=== PATIENT | male | born 1975 | race Two or more races ===

== ENCOUNTER 2016-12-18 10:14 | Emergency (ER) | payer MEDICARE, MEDICAID ==
[~2016-12-18] VITALS: Ht 188 cm; Wt 115.7 kg
[~2016-12-18 10:14] MED LIST: CYCL-343; FURO40TA5; GABA-534; HYDR-3658; INSU100I4; LEVEMIR; METF500T4
[2016-12-18 10:18] VITALS: BP 162/87
== END 2016-12-18 10:52 | disposition home or self-care (01) ==
LOC: ER 10:17
DX: K12.2 Cellulitis and abscess of mouth (principal); E11.9 Type 2 diabetes mellitus without complications; G89.29 Other chronic pain; I10 Essential (primary) hypertension; R13.10 Dysphagia, unspecified; F17.200 Nicotine dependence, unspecified, uncomplicated; M51.26 Other intervertebral disc displacement, lumbar region; M54.5 Low back pain
CPT/HCPCS: 99283; A4606; Z7610

== ENCOUNTER 2017-04-30 21:50 | Emergency (ER) | payer MEDICARE, MEDICAID ==
[~2017-04-30] VITALS: Ht 188 cm; Wt 111.6 kg
--- NOTE | 2017-04-30 22:13 | NUR ---
PT AMBULATORY TO ER BED 8 C/O RIGHT ANKLE PAIN X 1 WK, GRADUAL ONSET. PT AOX4 RR EVEN AND UNLABORED. NO SOB NOTED. NAD NOTED. NO NVD AT THIS TIME. PT NOT DIAPHORETIC. PT WAITING FOR MD NORRIS. CAP REFILL ON TELLY FEET WNL AND PEDIAL PULSE NOTED. PT STATES HAD RIGHT FOOT SX 2 YRS AGO.
[2017-04-30] MEDS ORDERED: IV NS 0.9% 1,000 ML BAG IV ONE ×2 (22:30→23:30)
--- NOTE | 2017-04-30 22:30 | NUR ---
BS 498. DR. OSIPNA MADE AWARE.
[2017-04-30] MEDS ORDERED: IV NS 0.9% 1,000 ML ONE ×2 (22:34→23:23)
[2017-04-30] MEDS ORDERED: IV SET PRIMARY 1 EA INFUS.SET MC ONE ×2 (22:34→23:23)
--- NOTE | 2017-04-30 22:39 | NUR ---
XRAY AT BEDSIDE
[2017-04-30 22:49] LABS: BASOPHILS % (AUTO) 0.4 % (0.0-2.0); EOSINOPHILS # (AUTO) 0.2 /CMM (0.0-0.7); EOSINOPHILS % (AUTO) 2.8 % (0.0-6.0); HEMATOCRIT 41 % (39-51); LYMPHOCYTES % (AUTO) 36.4 % (20.0-44.0); MEAN CORPUSCULAR HEMOGLOBIN 29 PG (26.0-33.0); MEAN CORPUSCULAR HGB CONC 34 g/dl (31.0-36.0); MEAN CORPUSCULAR VOLUME 86 fL (80-96); MONOCYTES # (AUTO) 0.5 /CMM (0.1-1.30); MONOCYTES % (AUTO) 6.7 % (2.0-12.0); NEUTROPHILS # (AUTO) 4.4 /CMM (1.8-8.9); NEUTROPHILS % (AUTO) 53.7 % (43.0-81.0); PLATELET COUNT (AUTO) 308 /CMM (150-450); RDW COEFFICIENT OF VARIATION 13.9 (11.5-15.0); RED BLOOD CELL COUNT(AUTO) 4.78 MIL/uL (4.5-6.0); WHITE BLOOD COUNT (AUTO) 8.1 K/uL (4.3-11.0)
[2017-04-30 23:09] LABS: CALCIUM, SERUM 8.3 mg/dL (8.5-10.1); CREATININE 0.9 mg/dL (0.6-1.3); POTASSIUM 3.6 mmol/L (3.5-5.1)
[2017-04-30] MEDS ORDERED: ACETAMINOPHEN ES 500 MG TABLET ONE (23:46)
--- NOTE | 2017-04-30 23:51 | NUR ---
RECEIVED TLYENOL 500MG X 2 TABS FROM MS FLOOR SIVANRohan.
--- NOTE | 2017-04-30 23:59 | NUR ---
IV removed. Catheter intact and site benign. Pressure and 4x4 applied to site. No bleeding noted. Patient discharged to home in stable condition. Written and verbal after care instructions given. Patient verbalizes understanding of instruction. ambulatory with a steady gait
[2017-05-01] MEDS ORDERED: ACETAMINOPHEN 325 MG TABLET PO ONE
[2017-05-01 00:01] VITALS: BP 162/97
== END 2017-05-01 00:02 | disposition home or self-care (01) ==
LOC: ER 21:50
DX: M79.671 Pain in right foot (principal); G89.18 Other acute postprocedural pain; E86.0 Dehydration; E11.65 Type 2 diabetes mellitus with hyperglycemia; F17.200 Nicotine dependence, unspecified, uncomplicated; I10 Essential (primary) hypertension; G89.29 Other chronic pain; Z91.19 Patient's noncompliance with other medical treatment and regimen; Z98.890 Other specified postprocedural states
CPT/HCPCS: 36415; 73630; 80048; 82962; 85025; 96360; 96361; 99285; A4606; J7030 ×2; Z7610

== ENCOUNTER 2019-03-12 19:11 | Emergency (ER) | payer MEDICARE, MEDICAID ==
[~2019-03-12] VITALS: Ht 188 cm; Wt 127.1 kg
[~2019-03-12 19:11] MED LIST changes: -CYCL-343; +CYCL10TA9; -HYDR-3658; +HYDR-3980; +METF-440; -METF500T4
[2019-03-12 19:19] VITALS: BP 181/98
--- NOTE | 2019-03-12 19:20 | NUR ---
PT BIBSELF COMPLAINING OF R HAND PAIN/RING FINGER PAIN AFTER "SCUFFLE ON ." PT AXO4. RESPIRATIONS EVEN AND UNLABORED. PT AMBULATORY WITH STEADY GAIT TO BED 9.
--- NOTE | 2019-03-12 20:24 | NUR ---
called PAOLA for report; [phone] - report iniated Note: The patient refused [employer] reporting per primary ED provider
--- NOTE | 2019-03-12 20:27 | NUR ---
PAOLA drawing press operator [phone] - report initiated
--- NOTE | 2019-03-12 20:27 | NUR ---
CALLED LEONILA SALDAÑA FOR HEELER TO REQUEST PANEL CALL
--- NOTE | 2019-03-12 20:35 | NUR ---
CALLED DR ALCALA'S OFFICE AT [phone] CLIFFORD. LEFT A MESSAGE
--- NOTE | 2019-03-12 21:48 | NUR ---
Patient discharged to home in stable condition. Written and verbal after care instructions given. Patient verbalizes understanding of instruction.
== END 2019-03-12 21:52 | disposition home or self-care (01) ==
LOC: ER 19:13
DX: S62.324A Displaced fracture of shaft of fourth metacarpal bone, right hand, initial encounter for closed fracture (principal); E11.9 Type 2 diabetes mellitus without complications; I10 Essential (primary) hypertension; G89.29 Other chronic pain; M54.9 Dorsalgia, unspecified; F10.10 Alcohol abuse, uncomplicated; F17.200 Nicotine dependence, unspecified, uncomplicated; Y90.9 Presence of alcohol in blood, level not specified; Z98.890 Other specified postprocedural states; Y08.89XA Assault by other specified means, initial encounter; Y93.89 Activity, other specified; Y92.89 Other specified places as the place of occurrence of the external cause; Y99.8 Other external cause status
CPT/HCPCS: 73130-TC

== ENCOUNTER 2019-03-15 13:20 | Outpatient (CLI) | payer MEDICARE, MEDICAID | END 2019-03-15 23:59 | disposition home or self-care (01) | LOC: WOU 13:20 | PROVIDERS: ATTEND Surgery | PROC: 2W3CX1Z Immobilization of Right Lower Arm using Splint (ICD-10-PCS; principal; 2019-03-15) | DX: S62.304A Unspecified fracture of fourth metacarpal bone, right hand, initial encounter for closed fracture (principal); Y04.2XXA Assault by strike against or bumped into by another person, initial encounter; Y92.89 Other specified places as the place of occurrence of the external cause; E10.65 Type 1 diabetes mellitus with hyperglycemia; E10.610 Type 1 diabetes mellitus with diabetic neuropathic arthropathy; F17.210 Nicotine dependence, cigarettes, uncomplicated; I10 Essential (primary) hypertension; E66.9 Obesity, unspecified; Z68.33 Body mass index [BMI] 33.0-33.9, adult | CPT/HCPCS: 29125; A6402 ==

== ENCOUNTER 2019-07-11 05:05 | Emergency (ER) | payer MEDICARE, MEDICAID ==
[~2019-07-11] VITALS: Ht 188 cm; Wt 129.3 kg
[2019-07-11 05:09] VITALS: BP 162/94
[2019-07-11] MEDS ORDERED: MORPHINE SULFATE IR 15 MG TABLET ONE (05:23)
[2019-07-11] MEDS ORDERED: MORPHINE SULFATE IR 15 MG TABLET PO ONE (05:30)
--- NOTE | 2019-07-11 05:45 | NUR ---
Patient discharged to home in stable condition. Written and verbal after care instructions given. Patient verbalizes understanding of instruction.
== END 2019-07-11 05:46 | disposition home or self-care (01) ==
LOC: ER 05:06
DX: M54.16 Radiculopathy, lumbar region (principal); G89.29 Other chronic pain; I10 Essential (primary) hypertension; E11.9 Type 2 diabetes mellitus without complications; F10.10 Alcohol abuse, uncomplicated; F17.200 Nicotine dependence, unspecified, uncomplicated; Y90.9 Presence of alcohol in blood, level not specified; Z98.890 Other specified postprocedural states

== ENCOUNTER 2020-03-21 18:38 | Inpatient (IN) | payer MEDICARE, OTHER ==
[~2020-03-21] VITALS: Ht 185.4 cm; Wt 130.2 kg
[2020-03-21] MEDS ORDERED: PIPERACILLIN /TAZOBACTAM 3.375 G in IV D5W 50 ML IV ONE (19:00)
[2020-03-21] MEDS ORDERED: IV NS 0.9% 1,000 ML BAG IV ONE (19:00)
[2020-03-21] MEDS ORDERED: VANCOMYCIN 1 GM in IV D5W 250 ML IV ONE ×2 (19:00→22:04)
[2020-03-21 19:08] LABS: BASOPHILS # (AUTO) 0.1 /CMM (0.0-0.2); BASOPHILS % (AUTO) 0.4 % (0.0-2.0); EOSINOPHILS % (AUTO) 2.1 % (0.0-6.0); HEMATOCRIT 42 % (39-51); HEMOGLOBIN 13.8 g/dL (13.5-17.5); LYMPHOCYTES # (AUTO) 1.6 /CMM (0.8-4.8); LYMPHOCYTES % (AUTO) 11.4 % (20.0-44.0); MEAN CORPUSCULAR HGB CONC 33 g/dl (31.0-36.0); MEAN CORPUSCULAR VOLUME 87 fL (80-96); MONOCYTES # (AUTO) 0.8 /CMM (0.1-1.30); MONOCYTES % (AUTO) 5.8 % (2.0-12.0); NEUTROPHILS # (AUTO) 11.6 /CMM (1.8-8.9); NEUTROPHILS % (AUTO) 80.3 % (43.0-81.0); PLATELET COUNT (AUTO) 326 /CMM (150-450); RED BLOOD CELL COUNT(AUTO) 4.77 MIL/uL (4.5-6.0); WHITE BLOOD COUNT (AUTO) 14.4 K/uL (4.3-11.0)
--- NOTE | 2020-03-21 19:10 | NUR ---
Report given to DENISSE Jeffries
--- NOTE | 2020-03-21 19:15 | NUR ---
ASSUMED CARE OF PT; wound to pad of r foot x 3 days s/p walking with rock in sandal, PT AAOX4, -SOB, NAD NOTED, PENDING MD NORRIS
[2020-03-21 19:17] LABS: CALCIUM, SERUM 8.6 mg/dL (8.5-10.1); CARBON DIOXIDE 29 mmol/L (21-32); CHLORIDE 102 mmol/L (98-107); CREATININE 1.5 mg/dL (0.6-1.3); GLUCOSE 293 mg/dL (74-106); POTASSIUM 4.3 mmol/L (3.5-5.1); SODIUM SERUM 137 mmol/L (136-145); UREA NITROGEN, BLOOD 25 mg/dL (7-18)
[2020-03-21 19:32] LABS: ALANINE AMINOTRANSFERASE 43 U/L (12-78); ALBUMIN 2.6 g/dL (3.4-5.0); ALKALINE PHOSPHATASE 147 U/L (46-116); ASPARTATE AMINOTRANSFERASE 27 U/L (15-37); BILIRUBIN,DIRECT 0.1 mg/dL (0.0-0.2); BILIRUBIN,TOTAL 0.3 mg/dL (0.2-1.0); TOTAL PROTEIN, SERUM 6.3 g/dL (6.4-8.2)
[2020-03-21] MEDS ORDERED: ONDANSETRON HCL/PF 4 MG/2 ML VIAL ONE (19:52)
[2020-03-21] MEDS ORDERED: MORPHINE SULFATE INJ 4 MG/ML DISP.SYRIN ONE (19:52)
--- NOTE | 2020-03-21 19:57 | NUR ---
TOYA SMITH ON THE PHONE WITH DR. WOOD
[2020-03-21] MEDS ORDERED: MORPHINE SULFATE INJ 2 MG/ML DISP.SYRIN IV ONE (20:00)
[2020-03-21] MEDS ORDERED: ONDANSETRON HCL/PF 4 MG/2 ML VIAL IV ONE (20:00)
--- NOTE | 2020-03-21 20:28 | NUR ---
SARAH HOPPER NP ON THE PHONE WITH MEREDITH BEATTY NP
[2020-03-21] MEDS ORDERED: IV NS 0.9% 1,000 ML IV PRN (20:30)
--- NOTE | 2020-03-21 20:30 | NUR ---
CALLED NURSING SUP FOR BED
[2020-03-21] MEDS ORDERED: DEXTROSE 50%-WATER 50 ML DISP.SYRIN IV PRN (21:30)
[2020-03-21] MEDS: BLOOD SUGAR DIAGNOSTIC 1 EACH STRIP VI SCH (22:00)
[2020-03-21] MEDS ORDERED: LISI10TA5 PO (22:15)
[2020-03-21] MEDS ORDERED: DULA1.5P SQ (22:15)
[2020-03-21] MEDS ORDERED: PREG100C PO (22:15)
[2020-03-21] MEDS ORDERED: ATOR80TA PO (22:15)
[2020-03-21] MEDS ORDERED: GLIP1TAB6 PO (22:15)
[2020-03-21] MEDS ORDERED: METO25TA4 PO (22:15)
[2020-03-21] MEDS ORDERED: OXYC-133 PO (22:15)
[2020-03-21] MEDS ORDERED: ASPI-1169 PO (22:15)
--- NOTE | 2020-03-21 22:17 | NUR ---
REPORT GIVEN TO RUDDY GOMEZ FOR CITLALI PT TRANSPORTED TO 3RD FLOOR
[2020-03-21 22:30] VITALS: BP 154/81
--- NOTE | 2020-03-21 22:30 | NUR ---
MS INSET CUTTER NOTE RECEIVED PATIENT VIA WHEEL CHAIR. PATIENT AMBULATED TO BED WITH STEADY GAIT. TOLERATING ROOM AIR. RESPIRATIONS ARE EVEN AND UNLABORED. NO S/S SOB NOTED. STATES PAIN IS 9/10 AT THIS TIME, INFORMED I WILL SEE WHAT DOCTOR ORDERED FOR PAIN. IN NO APPARENT DISTRESS. IV ACCESS IN LAC#20 PATENT AND SALINE LOCKED. INATAL AND PHYSICAL ASSESSMENT COMPLETED, SKIN ASSESSMENT COMPLETED AND PICTURES TAKEN AND PLACED IN CHART. HOME MEDICATIONS TAKEN AND SIGNED OVER. VITAL SIGNS OBTAINED BY [facility] NURSE WELL BELONGINGS LIST COMPLETED. BED IS LOW AND LOCKED, HOB ELEVATED IN SEMI FOWLERS, SIDE RIALS UP X2, CALL LIGHT WITHIN REACH. WILL CONTINUE TO MONITOR.
[2020-03-21] MEDS ORDERED: IBUP-1957 PO (23:14)
[2020-03-21] MEDS ORDERED: NALO4SPR NS (23:14)
[2020-03-21] MEDS ORDERED: NITR0.4T48 SL (23:14)
[2020-03-21] MEDS ORDERED: CYCL5TAB PO ×2 (23:14)
[2020-03-21] MEDS: IV NS 0.9% 1,000 ML IV PRN (23:25)
[2020-03-21] MEDS: HEPARIN SODIUM, PORCINE 5000 UNITS/1 ML VIAL SQ SCH (23:28)
[2020-03-21] MEDS: *INSULIN REGULAR(HUMULIN R)HUM 100 UNIT/ML VIAL SQ PRN (23:49)
[2020-03-22] MEDS ORDERED: ZOSYN IVPB 3.375 G in IV D5W 50ml IV SCH ×2
[2020-03-22] MEDS ORDERED: PIPERACILLIN /TAZOBACTAM 3.375 G VIAL IV ONE ×2 (00:13→05:50)
[2020-03-22] MEDS: PIPERACILLIN /TAZOBACTAM 3.375 G in IV D5W 50 ML IV SCH ×4 (00:21→18:20)
[2020-03-22] MEDS ORDERED: MAGNESIUM HYDROXIDE 30 ML UDC PO PRN (00:30)
[2020-03-22] MEDS ORDERED: CYCLOBENZAPRINE 10 MG TABLET PO PRN (00:30)
[2020-03-22] MEDS ORDERED: ONDANSETRON HCL/PF 4 MG/2 ML VIAL IVP PRN (00:30)
[2020-03-22] MEDS ORDERED: ACETAMINOPHEN 325 MG TABLET PO PRN (00:30)
[2020-03-22] MEDS ORDERED: IBUPROFEN 800 MG TABLET PO PRN (00:30)
[2020-03-22] MEDS ORDERED: ZOLPIDEM TARTRATE 5 MG TABLET PO PRN (00:30)
[2020-03-22] MEDS: PREGABALIN 100 MG CAPSULE PO SCH ×4 (00:46→18:13)
[2020-03-22] MEDS: ATORVASTATIN 40 MG TABLET PO SCH ×2 (00:46→21:58)
[2020-03-22] MEDS: oxyCODONE/APAP (5/325 MG) 1 UDTAB TABLET PO PRN ×2 (00:47→11:38)
--- NOTE | 2020-03-22 00:48 | NUR ---
MS RN NOTE ADMINISTERED FLEXORIL PER PATIENT REQUEST. ADMINISTERED PRN PERCOCET 5/325 X2 TAB D/T C/O PAIN 10/10 IN RIGHT FOOT. WILL CONTINUE TO MONITOR.
--- NOTE | 2020-03-22 02:41 | NUR ---
MS RN NOTE CALLED MEAT SERVICE TEAM MEMBER MD MEREDITH BEATTY TO INFORM ABOUT PATIENTS REQUEST FOR A NICOTINE PATCH. HE SMOKES ONE PACK PER DAY. TELEPHONE ORDER 14MG NICOTINE PATCH. ORDER READ BACK NOTED AND CARRIED OUT.
[2020-03-22] MEDS: NICOTINE PATCH (14MG) 14 MG PATCH.TD24 TD SCH ×2 (03:01→10:00)
[2020-03-22] MEDS: BLOOD SUGAR DIAGNOSTIC 1 EACH STRIP VI SCH ×4 (06:15→22:21)
[2020-03-22] MEDS: INSULIN REGULAR, HUMAN 100 UNIT/ML 3 ML VIAL SQ PRN ×3 (06:17→18:23)
[2020-03-22 07:07] LABS: BASOPHILS % (AUTO) 0.5 % (0.0-2.0); EOSINOPHILS % (AUTO) 6.1 % (0.0-6.0); HEMATOCRIT 35 % (39-51); HEMOGLOBIN 12.1 g/dL (13.5-17.5); LYMPHOCYTES # (AUTO) 2.1 /CMM (0.8-4.8); LYMPHOCYTES % (AUTO) 23.1 % (20.0-44.0); MEAN CORPUSCULAR HGB CONC 34 g/dl (31.0-36.0); MEAN CORPUSCULAR VOLUME 88 fL (80-96); MONOCYTES # (AUTO) 0.6 /CMM (0.1-1.30); MONOCYTES % (AUTO) 6.9 % (2.0-12.0); NEUTROPHILS # (AUTO) 5.7 /CMM (1.8-8.9); NEUTROPHILS % (AUTO) 63.4 % (43.0-81.0); PLATELET COUNT (AUTO) 258 /CMM (150-450); RED BLOOD CELL COUNT(AUTO) 4.03 MIL/uL (4.5-6.0); WHITE BLOOD COUNT (AUTO) 8.9 K/uL (4.3-11.0)
[2020-03-22 07:32] LABS: CALCIUM, SERUM 7.5 mg/dL (8.5-10.1); CREATININE 1.3 mg/dL (0.6-1.3); PHOSPHORUS 4.4 mg/dL (2.5-4.9); POTASSIUM 3.8 mmol/L (3.5-5.1)
[2020-03-22 08:00] VITALS: BP 135/85
--- NOTE | 2020-03-22 08:00 | NUR ---
RECEIVED PT. THIS AM ALERT AND ORIENTED X4.VS STABLE,PLEASANT.
[2020-03-22] MEDS ORDERED: FEE PK DOSING 1 MIN EA MC ONE (08:53)
[2020-03-22] MEDS: MORPHINE SULFATE INJ 2 MG/ML DISP.SYRIN IV PRN ×4 (09:40→22:11)
[2020-03-22] MEDS: ASPIRIN 81 MG TAB.CHEW PO SCH (09:59)
[2020-03-22] MEDS: METOPROLOL SUCCINATE 25 MG TAB.SR.24H PO SCH (10:00)
[2020-03-22] MEDS: HEPARIN SODIUM, PORCINE 5000 UNITS/1 ML VIAL SQ SCH ×2 (10:02→22:06)
[2020-03-22 10:32] LABS: APPEARANCE,URINE CLEAR (CLEAR); BILIRUBIN,URINE NEGATIVE (NEGATIVE); BLOOD, URINE TRACE-INTA Ery/uL (NEGATIVE); COLOR,URINE YELLOW (YELLOW); KETONES,URINE NEGATIVE (NEGATIVE); LEUKOCYTE ESTERASE ,URINE NEGATIVE (NEGATIVE); NITRITE, URINE NEGATIVE (NEGATIVE); PROTEIN,URINE >=300 mg/dl (NEGATIVE); UGLUCOSE >=1000 mg/dL (NEGATIVE); UROBILINOGEN,URINE 0.2 EU/dL (0.2)
[2020-03-22] MEDS: VANCOMYCIN 1.25 GM in IV D5W 250 ML IV SCH ×2 (11:21→21:00)
[2020-03-22 12:41] LABS: BACTERIA,URINE Few /HPF (None Seen); RBC,URINE 0-2 /HPF (0-2); SQUAMOUS EPITHELIAL CELL,UR Few /HPF (None Seen); WBC,URINE 0-2 /HPF (0-3); YEAST,URINE Few /HPF (None Seen)
[2020-03-22] MEDS ORDERED: TDAP [DIPH/PERTUSSIS/TET] 0.5 ML VIAL IM ONE (14:00)
[2020-03-22 16:00] VITALS: BP 161/101
--- NOTE | 2020-03-22 18:30 | NUR ---
ELY LEAK GANG SUPERVISOR,Ava WEBER.DR. JAIMES IN.CULTURE DONE OF RT. FOOT.DEBRIDEMENT DONE AND CAT SCAN ORDERED.UA AND URINE CULTURE SENT.MED. X 3 FOR PAIN.
--- NOTE | 2020-03-22 19:30 | NUR ---
MS RN: RECEIVED PATIENT Patient in bed, awake. On room air, tolerating room air. Right foot dressing C/D/I. Pain scale and pain medication reviewed with patient, verbalized understanding. IVF infusing. Fall precaution maintained.
[2020-03-22 20:00] VITALS: BP 160/90
[2020-03-22 20:30] VITALS: BP 160/90
[2020-03-22] MEDS: IV NS 0.9% 1,000 ML IV PRN (20:56)
[2020-03-22] MEDS ORDERED: IOHEXOL-300 100 ML VIAL IV ONE (21:15)
[2020-03-22] MEDS ORDERED: IV NS 0.9% 250 ML IV ONE (21:15)
[2020-03-22] MEDS ORDERED: CT SWABBABLE VALVE TRANS SET 1 EA INFUS.SET MC ONE (21:15)
[2020-03-22] MEDS: *INSULIN REGULAR(HUMULIN R)HUM 100 UNIT/ML VIAL SQ PRN (22:23)
[2020-03-23] MEDS: PIPERACILLIN /TAZOBACTAM 3.375 G in IV D5W 50 ML IV SCH ×5 (00:44→23:35)
[2020-03-23] MEDS: MORPHINE SULFATE INJ 2 MG/ML DISP.SYRIN IV PRN (03:25)
--- NOTE | 2020-03-23 06:19 | NUR ---
MS RN: END OF SHIFT REPORT Patient in bed. Stable Oxygen saturation on room air, tolerating well. IVF infusing, IV antibiotic as scheduled, afebrile overnight. Right foot dressing C/D/I. NWB RLE per Podiatry. PT to provide boot to right foot. Right foot pain managed with PRN Morphine. Fall precaution maintained.
[2020-03-23] MEDS: INSULIN REGULAR, HUMAN 100 UNIT/ML 3 ML VIAL SQ PRN ×4 (06:38→17:44)
[2020-03-23 07:18] LABS: BASOPHILS % (AUTO) 0.5 % (0.0-2.0); EOSINOPHILS % (AUTO) 5.9 % (0.0-6.0); HEMATOCRIT 34 % (39-51); HEMOGLOBIN 11.8 g/dL (13.5-17.5); LYMPHOCYTES # (AUTO) 1.6 /CMM (0.8-4.8); LYMPHOCYTES % (AUTO) 23.8 % (20.0-44.0); MEAN CORPUSCULAR HGB CONC 34 g/dl (31.0-36.0); MEAN CORPUSCULAR VOLUME 86 fL (80-96); MONOCYTES # (AUTO) 0.5 /CMM (0.1-1.30); MONOCYTES % (AUTO) 7.3 % (2.0-12.0); NEUTROPHILS # (AUTO) 4.3 /CMM (1.8-8.9); NEUTROPHILS % (AUTO) 62.5 % (43.0-81.0); PLATELET COUNT (AUTO) 264 /CMM (150-450); RED BLOOD CELL COUNT(AUTO) 3.98 MIL/uL (4.5-6.0); WHITE BLOOD COUNT (AUTO) 6.9 K/uL (4.3-11.0)
[2020-03-23 07:29] LABS: CALCIUM, SERUM 7.4 mg/dL (8.5-10.1); CREATININE 0.9 mg/dL (0.6-1.3); POTASSIUM 3.8 mmol/L (3.5-5.1)
[2020-03-23] MEDS: BLOOD SUGAR DIAGNOSTIC 1 EACH STRIP VI SCH ×4 (07:55→21:20)
[2020-03-23 08:00] VITALS: BP 150/94
--- NOTE | 2020-03-23 08:00 | NUR ---
RN NOTES RECEIVED PATIENT IN THE BED A/O X4, NO ACUTE RESPIRATORY DISTRESS, V/S TAKEN STABLE, WAS COMPLAINING OF PAIN ON RIGHT LEG, BS-233MG/DL, INFUSING NS AT 60 ML/HR LEFT AC AREA INTACT. ENCOURAGED TO KEEP RIGHT LEG ELEVATED USING PILLOW, PATIENT USING URINAL. ADMINISTERED SCHEDULED MEDICATION, AND STARTED VANCOMYCIN INFUSING AT 125 ML/HR. NEEDS ATTENDED AND ANTICIPATED. CONTINUED MONITORING.
[2020-03-23] MEDS: VANCOMYCIN 1.25 GM in IV D5W 250 ML IV SCH ×2 (08:05→21:07)
[2020-03-23] MEDS: ASPIRIN 81 MG TAB.CHEW PO SCH (08:10)
[2020-03-23] MEDS: PREGABALIN 100 MG CAPSULE PO SCH ×3 (08:10→17:04)
[2020-03-23] MEDS: METOPROLOL SUCCINATE 25 MG TAB.SR.24H PO SCH (08:10)
[2020-03-23] MEDS: NICOTINE PATCH (14MG) 14 MG PATCH.TD24 TD SCH (08:10)
[2020-03-23] MEDS: HEPARIN SODIUM, PORCINE 5000 UNITS/1 ML VIAL SQ SCH ×2 (08:16→21:12)
[2020-03-23] MEDS: MORPHINE SULFATE INJ 4 MG/ML DISP.SYRIN IV PRN ×4 (08:32→21:57)
--- NOTE | 2020-03-23 08:33 | NUR ---
RN NOTES ADMINISTERED MORPHINE SULFATE 4 MG/ML IV PUSH FOR RIGHT LEG PAIN 9/10 PER PAIN SCALE, AND ZOFRAN 4 MG/ML IV PUSH FOR NAUSEA PER PATIENT REQUEST, V/S TAKEN BP 150/94, P-84, CALL LIGHT WITHIN TO REACH. CONTINUED MONITORING.
[2020-03-23] MEDS ORDERED: MORPHINE SULFATE INJ 2 MG/ML DISP.SYRIN IV PRN (09:30)
--- NOTE | 2020-03-23 13:32 | NUR ---
RN NOTES ADMINISTERED MORPHINE SULFATE 4 MG/ML IV PUSH FOR PAIN ON RIGHT LEG 08/07 PER PATIENT REQUEST, V/S TAKEN BP 174//107, P-84, R-20. BS-246 MG/DL COVERAGE GIVEN, PATIENT USING WALKER TO AMBULATE, TOLERATED LUNCH 100%. ADMINISTERED SCHEDULED MEDICATION.
[2020-03-23 16:00] VITALS: BP 170/96
--- NOTE | 2020-03-23 17:47 | NUR ---
rn notes administered morphine sulfate 4 mg/ml iv push for right leg acute pain 07/07 per patient request, v/s taken bp 170/ 88, p-94, r-20.
--- NOTE | 2020-03-23 18:30 | NUR ---
RN NOTES MEDICATION WERE ADMINISTERED FOR PAIN EFFECTIVE, PATIENT TOLERATED DINER WELL, ADMINISTERED SCHEDULED MEDICATION, BS-160 MG/DL COVERAGE GIVEN, INFUSING NS 60 ML/HR AT LEFT AC AREA, INTACT. CALL LIGHT WITHIN TO REACH. ENDORSED ONCOMING NURSE FOLLOW PLAN OF CARE.
--- NOTE | 2020-03-23 19:00 | NUR ---
RECEIVED IN BED . ALERT AND ORIENTATED. ASKING FOR FOOD . NOTED RT DELTOID HE HAS A NICODERM PATCH ON. HE IS FRIENDLY AND COOPERATITVE
[2020-03-23 20:06] VITALS: BP 176/86
[2020-03-23 20:13] VITALS: BP 176/86
[2020-03-23] MEDS: ATORVASTATIN 40 MG TABLET PO SCH (21:12)
[2020-03-23] MEDS: *INSULIN REGULAR(HUMULIN R)HUM 100 UNIT/ML VIAL SQ PRN (21:25)
[2020-03-23] MEDS: IV NS 0.9% 1,000 ML IV PRN (23:37)
[2020-03-24] MEDS ORDERED: hydrALAZINE HCL 10 MG TABLET PO ONE (01:00)
[2020-03-24 03:24] VITALS: BP 159/88
[2020-03-24] MEDS: MORPHINE SULFATE INJ 4 MG/ML DISP.SYRIN IV PRN ×2 (04:06→08:31)
--- NOTE | 2020-03-24 05:46 | NUR ---
ENDING NOTES: MEDICATED FOR PAIN X2 THIS 12 HOURS, AND EFFECTIVE FOR COMFORT . AT 0000 HE C/0 H/A GAVE HIM TYLEONL AND TOOK HIS B/P 190 /101 HR 81..MADE MD SCHWARTZ AWARE AND A 1 X DOSE HYDALIZINE GIVEN B/P NOW AT 159/88 HR81 AND THE H/A GONE.
[2020-03-24] MEDS: PIPERACILLIN /TAZOBACTAM 3.375 G in IV D5W 50 ML IV SCH ×3 (05:50→17:02)
[2020-03-24] MEDS: BLOOD SUGAR DIAGNOSTIC 1 EACH STRIP VI SCH ×4 (06:33→21:53)
[2020-03-24] MEDS: INSULIN REGULAR, HUMAN 100 UNIT/ML 3 ML VIAL SQ PRN ×3 (06:37→17:03)
[2020-03-24 07:52] LABS: CALCIUM, SERUM 7.8 mg/dL (8.5-10.1); POTASSIUM 3.7 mmol/L (3.5-5.1)
[2020-03-24 08:00] VITALS: BP_SYST 161; BP_SYST 164; BP_DIAS 85; BP_DIAS 88
--- NOTE | 2020-03-24 08:00 | NUR ---
RN NOTES SEEN PATIENT IN THE BED A/A/O X4, NO ACUTE RESPIRATORY DISTRESS, V/S TAKEN STABLE BP 161/85, P-98, WAS COMPLAINING OF PAIN ON LOWER BACK 07/07, INFUSING NS AT 60 ML/HR LEFT AC AREA INTACT. ENCOURAGED TO KEEP RIGHT LEG ELEVATED USING PILLOW,PATIENT HAS NON-WB RLE. PATIENT USING URINAL. ADMINISTERED SCHEDULED MEDICATION, AND STARTED VANCOMYCIN INFUSING AT 250 ML/HR.CALL LIGHT WITHIN TO REACH. SEEN HOSPITALIST AND GET ORDER BP MEDICATION. NEEDS ATTENDED AND ANTICIPATED. CONTINUED MONITORING.
[2020-03-24 08:14] LABS: BASOPHILS % (AUTO) 0.5 % (0.0-2.0); EOSINOPHILS % (AUTO) 6.2 % (0.0-6.0); HEMATOCRIT 34 % (39-51); HEMOGLOBIN 11.8 g/dL (13.5-17.5); LYMPHOCYTES % (AUTO) 31.5 % (20.0-44.0); MEAN CORPUSCULAR HGB CONC 35 g/dl (31.0-36.0); MEAN CORPUSCULAR VOLUME 86 fL (80-96); MONOCYTES # (AUTO) 0.6 /CMM (0.1-1.30); MONOCYTES % (AUTO) 9.2 % (2.0-12.0); NEUTROPHILS # (AUTO) 3.4 /CMM (1.8-8.9); NEUTROPHILS % (AUTO) 52.6 % (43.0-81.0); PLATELET COUNT (AUTO) 277 /CMM (150-450); RED BLOOD CELL COUNT(AUTO) 3.94 MIL/uL (4.5-6.0); WHITE BLOOD COUNT (AUTO) 6.5 K/uL (4.3-11.0)
[2020-03-24] MEDS: VANCOMYCIN 1.25 GM in IV D5W 250 ML IV SCH ×2 (08:25→20:37)
[2020-03-24] MEDS: NICOTINE PATCH (14MG) 14 MG PATCH.TD24 TD SCH (08:29)
[2020-03-24] MEDS: METOPROLOL SUCCINATE 25 MG TAB.SR.24H PO SCH (08:30)
[2020-03-24] MEDS: ASPIRIN 81 MG TAB.CHEW PO SCH (08:30)
--- NOTE | 2020-03-24 08:31 | NUR ---
RN NOTES ADMINISTERED MORPHINE SULFATE 4MG/ML IV PUSH FOR PAIN 8/10 PER PAIN SCALE, PER PATIENT REQUEST. V/S TAKEN BP 161/86, P-98, R-20. ENCOURAGED TO INCREASE FLUID INTAKE.
[2020-03-24] MEDS: PREGABALIN 100 MG CAPSULE PO SCH ×3 (08:32→17:00)
[2020-03-24] MEDS: HEPARIN SODIUM, PORCINE 5000 UNITS/1 ML VIAL SQ SCH ×2 (08:40→20:39)
--- NOTE | 2020-03-24 09:32 | NUR ---
WOUND CARE CONSULT: PT PRESENTS WITH SURGICAL DRESSING TO RT LOWER EXTREMITY AND IS FOLLOWED BY PODIATRY TEAM. DEFER TO DPM FOR WOUND TREATMENT PLAN. WILL SEE PRN. PT IS CONTINENT AND INDEPENDENT WITH BED MOBILITY.
[2020-03-24] MEDS: MUPIROCIN OINT 2% 22 GM TUBE TP SCH ×2 (12:59→21:48)
[2020-03-24] MEDS: HYDROMORPHONE 1 MG/1 ML DISP.SYRIN IV PRN ×2 (13:35→20:38)
--- NOTE | 2020-03-24 13:35 | NUR ---
rn notes administered Dilaudid 1 mg/ml iv push for right leg pain 07/07 per patient request, v/s taken bp184/95, p-74, r-20.
[2020-03-24 14:05] VITALS: BP 185/72
[2020-03-24] MEDS: CLONIDINE HCL 0.1 MG TABLET PO PRN ×2 (14:05→22:22)
--- NOTE | 2020-03-24 14:05 | NUR ---
rn notes administered Catapres 0.1 mg po prn for bp 186/95, p-76 .
[2020-03-24 16:00] VITALS: BP_SYST 135; BP_SYST 136; BP_DIAS 76
--- NOTE | 2020-03-24 18:30 | NUR ---
rn notes medication were administered for Bp effective bp 135/76, p-63, bs-276 mg/dl coverage given, patient tolerated dinner well, patient wearing boots on right lef, non-WB RLE. call light within to reach. endorsed oncoming nurse follow plan of care.
--- NOTE | 2020-03-24 19:15 | NUR ---
RN medsurg opening notes Received Pt from morning nurse. Pt is resting in bed comfortably. Pt is alert and orientedX4. Respiration is normal in room air. No SOB. No S/S of distress noted. IV sites at LAC# 20 is clean, intact, patent and SL. Keep R leg elevated. Safety precautions is maintained. Bed at low position, brakes locked, side rails upX2, bed alarm is on and call light is within reach. Will continue to monitor.
[2020-03-24 20:00] VITALS: BP 168/99
[2020-03-24] MEDS: ATORVASTATIN 40 MG TABLET PO SCH (21:27)
[2020-03-24] MEDS: *INSULIN REGULAR(HUMULIN R)HUM 100 UNIT/ML VIAL SQ PRN (21:58)
[2020-03-24 23:00] VITALS: BP 157/87
--- NOTE | 2020-03-25 03:30 | NUR ---
RUDDY muñoz notes Wound care provided as ordered. Pt tolerated activity well.
[2020-03-25 04:00] VITALS: BP 163/96
[2020-03-25] MEDS: HYDROMORPHONE 1 MG/1 ML DISP.SYRIN IV PRN ×5 (04:05→21:40)
--- NOTE | 2020-03-25 04:06 | NUR ---
RN medsurrhea notes Pt is complaining of pain on right foot. Administered dilaudid 1mg/1 ml/iv push as ordered for pain. BP 163/96, pulse 73. Safety precautions is maintained. Will continue to monitor.
[2020-03-25] MEDS: BLOOD SUGAR DIAGNOSTIC 1 EACH STRIP VI SCH ×4 (06:47→22:03)
[2020-03-25] MEDS: INSULIN REGULAR, HUMAN 100 UNIT/ML 3 ML VIAL SQ PRN (06:49)
--- NOTE | 2020-03-25 07:12 | NUR ---
RN medsurg closing notes Pt is resting in bed comfortably. Pt is alert and orientedX4. Respiration is normal in room air. No SOB. No S/S of distress noted. IV sites at LAC# 20 is clean, intact, patent and SL. Routine meds were given as ordered. Wound care provided as ordered. Kept Pt clean, dry and comfortable. Safety precautions is maintained. Bed at low position, brakes locked, side rails upX2, bed alarm is on and call light is within reach. Will endorse to morning nurse for CITLALI.
[2020-03-25 08:00] VITALS: BP 156/95
[2020-03-25 08:57] LABS: BASOPHILS % (AUTO) 0.4 % (0.0-2.0); HEMATOCRIT 38 % (39-51); HEMOGLOBIN 13.1 g/dL (13.5-17.5); LYMPHOCYTES # (AUTO) 1.9 /CMM (0.8-4.8); LYMPHOCYTES % (AUTO) 24.2 % (20.0-44.0); MEAN CORPUSCULAR HGB CONC 34 g/dl (31.0-36.0); MEAN CORPUSCULAR VOLUME 86 fL (80-96); MONOCYTES # (AUTO) 0.5 /CMM (0.1-1.30); MONOCYTES % (AUTO) 6.5 % (2.0-12.0); NEUTROPHILS # (AUTO) 5.1 /CMM (1.8-8.9); NEUTROPHILS % (AUTO) 62.9 % (43.0-81.0); PLATELET COUNT (AUTO) 304 /CMM (150-450); RED BLOOD CELL COUNT(AUTO) 4.45 MIL/uL (4.5-6.0)
[2020-03-25] MEDS: ASPIRIN 81 MG TAB.CHEW PO SCH (09:00)
[2020-03-25] MEDS: VANCOMYCIN 1.25 GM in IV D5W 250 ML IV SCH (09:00)
[2020-03-25] MEDS: HEPARIN SODIUM, PORCINE 5000 UNITS/1 ML VIAL SQ SCH ×2 (09:00→21:54)
[2020-03-25] MEDS: PREGABALIN 100 MG CAPSULE PO SCH ×3 (09:00→18:30)
[2020-03-25] MEDS: METOPROLOL SUCCINATE 25 MG TAB.SR.24H PO SCH (09:00)
[2020-03-25] MEDS: NICOTINE PATCH (14MG) 14 MG PATCH.TD24 TD SCH (09:00)
[2020-03-25 09:13] LABS: CALCIUM, SERUM 8.2 mg/dL (8.5-10.1); CREATININE 0.9 mg/dL (0.6-1.3); POTASSIUM 3.9 mmol/L (3.5-5.1)
--- NOTE | 2020-03-25 09:35 | NUR ---
Patient A&Ox4. No s/s of distress. Patient is complaining of pain in his foot. Will administer pain medication. Will call doctor about possible discharge today. Bed in lowest position. Call light in reach. Will continue to monitor patient throughout shift.
[2020-03-25] MEDS: MUPIROCIN OINT 2% 22 GM TUBE TP SCH ×2 (10:00→22:07)
--- NOTE | 2020-03-25 12:53 | NUR ---
Wound care done early in AM by steward/stewardess night. Will instruct for wound care AM daily.
--- NOTE | 2020-03-25 13:41 | NUR ---
Dilaudid 1mg given at 10AM. Documentation is done later because was unable to scan medication and bar code.
[2020-03-25] MEDS: IBUPROFEN 400 MG TABLET PO PRN (13:52)
--- NOTE | 2020-03-25 13:52 | NUR ---
Gave patient Motrin at 1352. Pain is 7/10. Will montior pain and reassess patient. Call light in reach. Bed in lowest position.
[2020-03-25] MEDS: CLONIDINE HCL 0.1 MG TABLET PO PRN (15:38)
[2020-03-25 16:00] VITALS: BP 175/100
--- NOTE | 2020-03-25 19:55 | NUR ---
RN open notes Patient is laying in bed. Bed is in lowest locked position with side rails up x2. No SOB/ acute respiratory distress noted. No complaints of pain at the moment. Call light is within reach. Will continue to monitor.
[2020-03-25 20:24] VITALS: BP 163/90
[2020-03-25] MEDS: ATORVASTATIN 40 MG TABLET PO SCH (21:42)
[2020-03-25] MEDS: CEFAZOLIN 2 GM in IV NS 0.9% 100 ML IV SCH (21:51)
[2020-03-25] MEDS: *INSULIN REGULAR(HUMULIN R)HUM 100 UNIT/ML VIAL SQ PRN (22:05)
[2020-03-26] MEDS: CEFAZOLIN 2 GM in IV NS 0.9% 100 ML IV SCH ×3 (05:13→21:15)
[2020-03-26] MEDS: HYDROMORPHONE 1 MG/1 ML DISP.SYRIN IV PRN ×4 (05:13→22:25)
[2020-03-26] MEDS: BLOOD SUGAR DIAGNOSTIC 1 EACH STRIP VI SCH ×4 (06:55→21:15)
[2020-03-26] MEDS: *INSULIN REGULAR(HUMULIN R)HUM 100 UNIT/ML VIAL SQ PRN ×3 (06:57→21:15)
--- NOTE | 2020-03-26 07:28 | NUR ---
RN close notes Patient is laying in bed. Bed is in lowest locked position with side rails up x2. No complaints of pain at the moment. Call light is within reach. No SOB/ acute respiratory distress noted. All due meds given. Will endorse to AM nurse.
--- NOTE | 2020-03-26 07:35 | NUR ---
MS RN OPENING NOTE PATIENT IN BED RESTING COMFORTABLY. PATIENT IN NO ACUTE DISTRESS. NO SOB NOTED. PATIENT BREATHING IS EVEN AND UNLABORED. PATIENT BED ALARM IS ON. SAFETY PRECAUTIONS IN PLACE. PATIENT STATES NO PAIN AT THIS TIME. PATIENT BED IS LOCKED AND IN LOWEST POSITION. CALL LIGHT WITHIN REACH. WILL CONTINUE TO MONITOR.
[2020-03-26 08:02] LABS: BASOPHILS % (AUTO) 0.4 % (0.0-2.0); EOSINOPHILS % (AUTO) 6.1 % (0.0-6.0); HEMATOCRIT 37 % (39-51); HEMOGLOBIN 12.4 g/dL (13.5-17.5); LYMPHOCYTES # (AUTO) 1.8 /CMM (0.8-4.8); LYMPHOCYTES % (AUTO) 24.5 % (20.0-44.0); MEAN CORPUSCULAR HGB CONC 34 g/dl (31.0-36.0); MEAN CORPUSCULAR VOLUME 86 fL (80-96); MONOCYTES # (AUTO) 0.5 /CMM (0.1-1.30); MONOCYTES % (AUTO) 6.2 % (2.0-12.0); NEUTROPHILS # (AUTO) 4.6 /CMM (1.8-8.9); NEUTROPHILS % (AUTO) 62.8 % (43.0-81.0); PLATELET COUNT (AUTO) 321 /CMM (150-450); RED BLOOD CELL COUNT(AUTO) 4.26 MIL/uL (4.5-6.0); WHITE BLOOD COUNT (AUTO) 7.4 K/uL (4.3-11.0)
[2020-03-26 08:36] LABS: CALCIUM, SERUM 8.3 mg/dL (8.5-10.1); CREATININE 0.9 mg/dL (0.6-1.3); PHOSPHORUS 3.5 mg/dL (2.5-4.9); POTASSIUM 4.6 mmol/L (3.5-5.1)
[2020-03-26] MEDS: NICOTINE PATCH (14MG) 14 MG PATCH.TD24 TD SCH (08:36)
[2020-03-26] MEDS: ASPIRIN 81 MG TAB.CHEW PO SCH (08:37)
[2020-03-26] MEDS: METOPROLOL SUCCINATE 25 MG TAB.SR.24H PO SCH (08:37)
[2020-03-26] MEDS: HEPARIN SODIUM, PORCINE 5000 UNITS/1 ML VIAL SQ SCH ×2 (08:40→21:13)
[2020-03-26] MEDS: PREGABALIN 100 MG CAPSULE PO SCH ×3 (09:29→16:48)
[2020-03-26] MEDS: MUPIROCIN OINT 2% 22 GM TUBE TP SCH ×2 (09:38→21:30)
[2020-03-26 16:00] VITALS: BP 170/93
[2020-03-26] MEDS: CLONIDINE HCL 0.1 MG TABLET PO PRN (16:48)
[2020-03-26] MEDS: INSULIN REGULAR, HUMAN 100 UNIT/ML 3 ML VIAL SQ PRN (17:01)
--- NOTE | 2020-03-26 18:30 | NUR ---
MS RN CLOSING NOTE PATIENT IN BED RESTING COMFORTABLY. PATIENT IN NO ACUTE DISTRESS. NO SOB NOTED. PATIENT BREATHING IS EVEN AND UNLABORED. PATIENT BED ALARM IS ON. SAFETY PRECAUTIONS IN PLACE. PATIENT STATES NO PAIN AT THIS TIME. WOUND CARE PROVIDED ORDERED. PATIENT KEPT CLEAN, DRY AND COMFORTABLE THROUGHOUT SHIFT. PATIENT BED IS LOCKED AND IN LOWEST POSITION. CALL LIGHT WITHIN REACH. WILL ENDORSE CARE TO PM SHIFT FOR CITLALI.
--- NOTE | 2020-03-26 19:50 | NUR ---
MS RN OPENING NOTES RECEIVED PATIENT IN BED ALERT AND ORIENTED X 3. VERBALLY RESPONSIVE AND ABLE TO FOLLOW DIRECTIONS. BREATHING REGULAR AND UNLABORED ON ROOM AIR. RIGHT HAND G22 IV LINE INTACT AND PATENT, FLUSHING WELL WITH NO BLEEDING OR S/S OF INFILTRATION NOTED. RIGHT FOOT WOUND OBSERVED WITH INTACT CLEAN DRESSING. NO COMPLAINTS OF PAIN/DISCOMFORT REPORTED AT THIS TIME. BED LOW AND LOCKED ON SEMI FOWLERS POSITION. CALL LIGHT IN REACH. WILL CONTINUE TO MONITOR.
[2020-03-26 20:00] VITALS: BP 136/78
[2020-03-26] MEDS: ATORVASTATIN 40 MG TABLET PO SCH (21:15)
--- NOTE | 2020-03-26 22:20 | NUR ---
VEHICLE RETURN ASSOCIATE NOTES BS 272mg/dl, 6UNITS REGULAR INSULIN GIVEN SQ. SNACKS PROVIDED ON BEDSIDE. WILL CONTINUE TO MONITOR.
--- NOTE | 2020-03-26 22:45 | NUR ---
MS RN NOTES COMPLAINED OF 8/10 RIGHT FOOT PAIN, DILAUDID 1MG GIVEN VIA IV PUSH. NON-PHARMACOLOGICAL INTERVENTIONS PROVIDED. WILL CONTINUE TO MONITOR.
[2020-03-27] MEDS: IBUPROFEN 400 MG TABLET PO PRN (03:48)
[2020-03-27] MEDS: CEFAZOLIN 2 GM in IV NS 0.9% 100 ML IV SCH ×2 (04:37→13:38)
[2020-03-27] MEDS: HYDROMORPHONE 1 MG/1 ML DISP.SYRIN IV PRN ×2 (04:57→14:55)
--- NOTE | 2020-03-27 06:25 | NUR ---
MS RN CLOSING NOTES PATIENT IN BED ALERT AND ORIENTED X 3. AFEBRILE WITH NO S/S OF DISTRESS OBSERVED. VERBALLY RESPONSIVE AND ABLE TO FOLLOW DIRECTIONS. RIGHT HAND G22 IV LINE PATENT AND FLUSHING WELL. RIGHT FOOT WOUND TREATMENT PROVIDED. NO COMPLAINTS OF PAIN/DISCOMFORT REPORTED AT THIS TIME. BED LOW AND LOCKED ON SEMI FOWLERS POSITION. CALL LIGHT IN REACH. WILL ENDORSE TO MORNING SHIFT FOR CITLALI.
[2020-03-27] MEDS: BLOOD SUGAR DIAGNOSTIC 1 EACH STRIP VI SCH ×2 (06:31→11:46)
[2020-03-27] MEDS: INSULIN REGULAR, HUMAN 100 UNIT/ML 3 ML VIAL SQ PRN ×2 (06:32→11:46)
[2020-03-27 07:52] LABS: BASOPHILS % (AUTO) 0.4 % (0.0-2.0); EOSINOPHILS % (AUTO) 6.9 % (0.0-6.0); HEMATOCRIT 36 % (39-51); HEMOGLOBIN 12.1 g/dL (13.5-17.5); LYMPHOCYTES # (AUTO) 2.1 /CMM (0.8-4.8); LYMPHOCYTES % (AUTO) 27.7 % (20.0-44.0); MEAN CORPUSCULAR HGB CONC 33 g/dl (31.0-36.0); MEAN CORPUSCULAR VOLUME 86 fL (80-96); MONOCYTES # (AUTO) 0.5 /CMM (0.1-1.30); NEUTROPHILS # (AUTO) 4.6 /CMM (1.8-8.9); PLATELET COUNT (AUTO) 330 /CMM (150-450); RED BLOOD CELL COUNT(AUTO) 4.24 MIL/uL (4.5-6.0); WHITE BLOOD COUNT (AUTO) 7.7 K/uL (4.3-11.0)
[2020-03-27 08:00] VITALS: BP 147/91
[2020-03-27 08:03] LABS: MAGNESIUM 1.9 mg/dL (1.8-2.4); PHOSPHORUS 3.7 mg/dL (2.5-4.9); POTASSIUM 3.5 mmol/L (3.5-5.1)
[2020-03-27] MEDS: NICOTINE PATCH (14MG) 14 MG PATCH.TD24 TD SCH (09:57)
[2020-03-27] MEDS: PREGABALIN 100 MG CAPSULE PO SCH ×2 (09:57→13:39)
[2020-03-27] MEDS: METOPROLOL SUCCINATE 25 MG TAB.SR.24H PO SCH (09:57)
[2020-03-27] MEDS: ASPIRIN 81 MG TAB.CHEW PO SCH (09:57)
[2020-03-27] MEDS: HEPARIN SODIUM, PORCINE 5000 UNITS/1 ML VIAL SQ SCH (09:58)
[2020-03-27] MEDS: MUPIROCIN OINT 2% 22 GM TUBE TP SCH (09:59)
[2020-03-27 16:00] VITALS: BP 187/85
--- NOTE | 2020-03-27 18:20 | NUR ---
PAtient cleared for d/c to home with home health to continue antibiotic therapy. Midline to the RACHEL g 18 inserted prior discharge. Midline flushing well with good blood return. Patient refused wound care and d/c pictures. Patient educated on diabetic diet and needs to f/u with wound cleaning and PCP.Patient verbalized understanding. IV med s/e provided. Patient sighed d/c papers and valuable form. All belongings with the patient including home meds and cell phone. Patient safely transferred to [facility] via wheelchair and picked up by daughter
== END 2020-03-27 17:45 | disposition home health service (06) | DRG 622 ==
LOC: ER 18:44 → MED 21:02
PROVIDERS: ADMIT Nurse Practitioner Acute Care; ATTEND Internal Medicine
PROC: 0JBQ0ZZ Excision of Right Foot Subcutaneous Tissue and Fascia, Open Approach (ICD-10-PCS; principal; 2020-03-22)
PROC: 05HY33Z Insertion of Infusion Device into Upper Vein, Percutaneous Approach (ICD-10-PCS; 2020-03-27)
DX: E11.621 Type 2 diabetes mellitus with foot ulcer (principal); R65.11 Systemic inflammatory response syndrome (SIRS) of non-infectious origin with acute organ dysfunction; D68.59 Other primary thrombophilia; L03.115 Cellulitis of right lower limb; E44.1 Mild protein-calorie malnutrition; N17.0 Acute kidney failure with tubular necrosis; Z83.3 Family history of diabetes mellitus; L97.519 Non-pressure chronic ulcer of other part of right foot with unspecified severity; E11.42 Type 2 diabetes mellitus with diabetic polyneuropathy; E11.610 Type 2 diabetes mellitus with diabetic neuropathic arthropathy; E11.628 Type 2 diabetes mellitus with other skin complications; E78.5 Hyperlipidemia, unspecified; E78.1 Pure hyperglyceridemia; G89.29 Other chronic pain; Z98.1 Arthrodesis status; Z79.84 Long term (current) use of oral hypoglycemic drugs; Z79.899 Other long term (current) drug therapy; E11.65 Type 2 diabetes mellitus with hyperglycemia; D64.9 Anemia, unspecified; E66.01 Morbid (severe) obesity due to excess calories; Z68.37 Body mass index [BMI] 37.0-37.9, adult; Z79.4 Long term (current) use of insulin; F17.210 Nicotine dependence, cigarettes, uncomplicated; F12.90 Cannabis use, unspecified, uncomplicated; M19.071 Primary osteoarthritis, right ankle and foot; M21.40 Flat foot [pes planus] (acquired), unspecified foot
CPT/HCPCS: 36415; 71045-TC; 73630-TC; 73702-TC; 80048-TC; 80061-TC; 80076-TC; 80202-TC; 81000-TC; 82962-TC; 83605-TC; 83735-TC; 84100-TC; 84484-TC; 85025-TC; 85652-TC; 85730-TC; 86140-TC; 87040-TC; 87070-TC; 87081-TC; 87086-TC; 90715; 97110-TC; 97116-TC; 97530-TC; A4362; A6403; G0378; J0690; J1170; J1644; J1815; J2270; J2405; J2543; J3370; J7030; J7050; J7060; Q9967

== ENCOUNTER 2020-04-03 10:35 | Outpatient (CLI) | payer MEDICARE, OTHER ==
[~2020-04-03 10:35] MED LIST changes: +ASPI-1169 PO; +ATOR80TA PO; -CYCL10TA9; +CYCL5TAB PO; +DULA1.5P SQ; -FURO40TA5; -GABA-534; +GLIP1TAB6 PO; -HYDR-3980; +IBUP-1957 PO; -INSU100I4; -LEVEMIR; +LISI10TA5 PO; -METF-440; +METO25TA4 PO; +NALO4SPR NS; +NITR0.4T48 SL; +OXYC-133 PO; +PREG100C PO
== END 2020-04-03 23:59 | disposition home or self-care (01) ==
LOC: WOU 10:35
PROVIDERS: ATTEND Surgery
DX: E10.621 Type 1 diabetes mellitus with foot ulcer (principal); L97.512 Non-pressure chronic ulcer of other part of right foot with fat layer exposed; E10.65 Type 1 diabetes mellitus with hyperglycemia; Z79.4 Long term (current) use of insulin; E66.9 Obesity, unspecified; Z68.33 Body mass index [BMI] 33.0-33.9, adult
CPT/HCPCS: 11042

== ENCOUNTER 2020-04-10 10:30 | Outpatient (CLI) | payer MEDICARE, OTHER | END 2020-04-10 23:59 | disposition home or self-care (01) | LOC: WOU 10:30 | PROVIDERS: ATTEND Podiatrist Foot & Ankle Surgery | DX: E10.621 Type 1 diabetes mellitus with foot ulcer (principal); L97.512 Non-pressure chronic ulcer of other part of right foot with fat layer exposed; E10.610 Type 1 diabetes mellitus with diabetic neuropathic arthropathy; E10.21 Type 1 diabetes mellitus with diabetic nephropathy; F17.210 Nicotine dependence, cigarettes, uncomplicated; I10 Essential (primary) hypertension; Z79.4 Long term (current) use of insulin; Z79.899 Other long term (current) drug therapy | CPT/HCPCS: 11042 ==

== ENCOUNTER 2020-06-22 19:28 | Inpatient (IN) | payer MEDICARE, OTHER ==
[~2020-06-22] VITALS: Ht 188 cm; Wt 126.6 kg
--- NOTE | 2020-06-22 19:53 | NUR ---
PATIENT CAME TO ER BED 9 C/O RIGHT FOOT PAIN SINCE 2x MONTHS AGO. PATIENT STATES THAT HE WAS WALKING HIS DOG WHEN HE HAD STEPPED ON A SHARP PEBBLE WHILE WEARING SLIPPERS WHICH HAS NOT HEALED UNTIL NOW. PATIENT STATES THAT HAS DIABETIC NEUROPATHY ON HIS FOOT. HE HAS SEEN A WOUND CARE CENTER, BUT HAS STOPPED GOING BECAUSE HE "HAD TO LEAVE TOWN". PATIENT IS NOT ON ANY ANTIBIOTICS. STATES HE FEELS THROBBING PAIN 7/10 CURRENTLY. NO DRAINAGE AT THE SITE. AAOX4. NO SOB. BREATHING EVENLY AND UNLABORED ON ROOM AIR.
--- NOTE | 2020-06-22 20:19 | NUR ---
PRESIDENT PRACTICING UROLOGIST AT BEDSIDE FOR BLOOD CULTURES AND BLOOD DRAW.
[2020-06-22 20:22] LABS: BASOPHILS % (AUTO) 0.5 % (0.0-2.0); EOSINOPHILS % (AUTO) 3.5 % (0.0-6.0); HEMATOCRIT 42 % (39-51); HEMOGLOBIN 13.7 g/dL (13.5-17.5); LYMPHOCYTES % (AUTO) 21.4 % (20.0-44.0); MEAN CORPUSCULAR HGB CONC 33 g/dl (31.0-36.0); MEAN CORPUSCULAR VOLUME 88 fL (80-96); MONOCYTES # (AUTO) 0.5 /CMM (0.1-1.30); MONOCYTES % (AUTO) 5.7 % (2.0-12.0); NEUTROPHILS # (AUTO) 6.5 /CMM (1.8-8.9); NEUTROPHILS % (AUTO) 68.9 % (43.0-81.0); PLATELET COUNT (AUTO) 319 /CMM (150-450); RED BLOOD CELL COUNT(AUTO) 4.73 MIL/uL (4.5-6.0); WHITE BLOOD COUNT (AUTO) 9.4 K/uL (4.3-11.0)
[2020-06-22] MEDS ORDERED: PIPERACILLIN /TAZOBACTAM 3.375 G VIAL IV ONE (20:25)
[2020-06-22] MEDS ORDERED: VANCOMYCIN 1 GM VIAL ONE (20:25)
--- NOTE | 2020-06-22 20:27 | NUR ---
XRAY AT BEDSIDE FOR XRAY
[2020-06-22] MEDS ORDERED: VANCOMYCIN 1 GM in IV D5W 250 ML IV ONE (20:30)
[2020-06-22] MEDS ORDERED: PIPERACILLIN /TAZOBACTAM 3.375 G in IV D5W 50 ML IV ONE (20:30)
[2020-06-22] MEDS ORDERED: IV NS 0.9% 1,000 ML BAG IV ONE (20:30)
[2020-06-22 20:36] LABS: CALCIUM, SERUM 8.4 mg/dL (8.5-10.1); CARBON DIOXIDE 27 mmol/L (21-32); CHLORIDE 99 mmol/L (98-107); CREATININE 1.7 mg/dL (0.6-1.3); POTASSIUM 4.3 mmol/L (3.5-5.1); SODIUM SERUM 134 mmol/L (136-145); UREA NITROGEN, BLOOD 20 mg/dL (7-18)
[2020-06-22 20:52] LABS: GLUCOSE 495 mg/dL (74-106)
[2020-06-22] MEDS ORDERED: DEXTROSE 50%-WATER 50 ML DISP.SYRIN IV PRN (21:00)
--- NOTE | 2020-06-22 21:09 | NUR ---
REPORT GIVEN TO MILAGRO FOX FOR CITLALI.
[2020-06-22] MEDS ORDERED: INSULIN REGULAR, HUMAN 100 UNIT/ML 10 ML VIAL ONE (21:10)
[2020-06-22 21:25] VITALS: BP 175/113
[2020-06-22] MEDS ORDERED: INSULIN REGULAR, HUMAN 100 UNIT/ML 10 ML VIAL IV ONE (21:30)
--- NOTE | 2020-06-22 21:30 | NUR ---
MS/STAFFING OPERATIONS MANAGER NOTE Received patient via Hive guard unlimited @ 8004. Patient is A/O x4, very pleasant. PERRLA. No JVD. Pulses 2+. Breathing even, clear, unlabored. No signs of acute distress or SOB. Patient c/o pain level 7 aching, throbbing in lower back. Skin warm, pink, dry, appropriate for ethnicity. Ulceration on plantar surface of right foot. No drainage noted at this time. Healed surgical incision approximately 2 inches, noted on lower back. Sensation intact in bilateral upper extremity. Numbness noted in bilateral lower extremities. Abdomen round, soft, non-distended. Bowel sounds hypoactive in upper quadrants, normoactive in lower quadrants. Last bowel movement 06/22. Pt voids via toilet. Urine output clear, yellow, no sediment. Able to move extremities well, mortgage loan assistant strength 4+. IV site right forearm 20g running NS @ 75 ml/hr, patent and intact. No signs of infiltration. Bed in low position, wheels locked, side rails up x2, call light within reach.
[2020-06-22] MEDS: HEPARIN SODIUM, PORCINE 5000 UNITS/1 ML VIAL SQ SCH (22:28)
[2020-06-22] MEDS: INSULIN REGULAR, HUMAN 100 UNIT/ML 3 ML VIAL SQ PRN (22:42)
[2020-06-22] MEDS: BLOOD SUGAR DIAGNOSTIC 1 EACH STRIP IN SCH (22:46)
[2020-06-22] MEDS: IV NS 0.9% 1,000 ML IV PRN (23:11)
[2020-06-23] MEDS ORDERED: CYCLOBENZAPRINE 10 MG TABLET PO PRN
[2020-06-23] MEDS: ATORVASTATIN 40 MG TABLET PO SCH ×2 (00:27→21:11)
[2020-06-23] MEDS: HYDROCODONE/APAP 5/325MG 1 EACH TABLET PO PRN ×4 (00:44→18:02)
--- NOTE | 2020-06-23 00:47 | NUR ---
RN NOTES COMPLAINED OF RIGHT FOOT PAIN- NORCO 5/325 MG PO GIVEN ORDERED, V/ S STABLE
[2020-06-23] MEDS ORDERED: PIPERACILLIN /TAZOBACTAM 3.375 G VIAL IV ONE (03:47)
[2020-06-23] MEDS ORDERED: ZOSYN IVPB 3.375 G in IV D5W 50ml IV ONE (04:30)
[2020-06-23 05:00] VITALS: BP 159/96
[2020-06-23 05:44] VITALS: BP 159/96
[2020-06-23] MEDS: INSULIN REGULAR, HUMAN 100 UNIT/ML 3 ML VIAL SQ PRN ×3 (06:31→17:12)
[2020-06-23] MEDS: BLOOD SUGAR DIAGNOSTIC 1 EACH STRIP IN SCH (06:42)
--- NOTE | 2020-06-23 06:43 | NUR ---
MS/RN NOTE Patient c/o pain level 8 in low back. Throbbing and aching. Gave prescribed norco as ordered. VSS. Will continue to monitor.
--- NOTE | 2020-06-23 06:44 | NUR ---
MS/RN CLOSING NOTE Awake in bed. Patient is A/O x4, very pleasant. PERRLA. No JVD. Pulses 2+. Breathing even, clear, unlabored. No signs of acute distress or SOB. Patient c/o pain level 7 aching, throbbing in lower back. Skin warm, pink, dry, appropriate for ethnicity. Ulceration on plantar surface of right foot. Multiple scabs noted on left leg. Bed in low position, wheels locked, side rails up x2, call light within reach. Will endorse to oncoming nurse.
--- NOTE | 2020-06-23 07:12 | NUR ---
RN NOTES Received patient in bed resting comfortably in moderate high back rest. A/O x4, Breathing even, clear, unlabored. No signs of acute distress or SOB noted at this time. IV fluids on RFA #20 with NS running @75 ML/HR. Ulceration on plantar surface of right foot. Multiple scabs noted on left leg. Safety measures in place, Bed in low position, wheels locked, side rails up x2, call light within reach. Will continue to monitor.
[2020-06-23 08:00] VITALS: BP 154/91
[2020-06-23] MEDS: PREGABALIN 100 MG CAPSULE PO SCH ×3 (08:28→16:44)
[2020-06-23] MEDS: ASPIRIN 81 MG TAB.CHEW PO SCH (08:28)
[2020-06-23] MEDS: METOPROLOL SUCCINATE 25 MG TAB.SR.24H PO SCH (08:29)
[2020-06-23] MEDS: HEPARIN SODIUM, PORCINE 5000 UNITS/1 ML VIAL SQ SCH ×2 (08:31→20:31)
[2020-06-23] MEDS: VANCOMYCIN 1.5 GM in IV D5W 500ml IV SCH ×2 (09:27→20:30)
[2020-06-23] MEDS ORDERED: DEXTROSE 50%-WATER 50 ML DISP.SYRIN IV PRN (09:30)
--- NOTE | 2020-06-23 09:31 | NUR ---
WOUND CARE CONSULT: PT REFUSED SKIN ASSESSMENT AND STATED WANTS TO SLEEP. PER NURSING STAFF THERE IS A FOOT WOUND, PRESENT ON ADMISSION. DR WOOD FOLLOWS PT FOR WOUND. DR WOOD NOTIFIED OF PT ADMISSION. WILL SEE PRN.
[2020-06-23] MEDS: ZOSYN IVPB 3.375 G in IV D5W 50ml IV SCH ×2 (11:03→17:04)
[2020-06-23] MEDS: BLOOD SUGAR DIAGNOSTIC 1 EACH STRIP VI SCH ×3 (11:11→21:04)
[2020-06-23] MEDS ORDERED: HYDROCODONE/APAP 7.5/325MG 1 EACH TABLET PO PRN (12:00)
[2020-06-23 16:00] VITALS: BP 144/94
[2020-06-23] MEDS: IV NS 0.9% 1,000 ML IV PRN (16:44)
--- NOTE | 2020-06-23 18:53 | NUR ---
RN NOTES Patient in bed resting comfortably in moderate high back rest. A/O x4, Breathing even, clear, unlabored. No signs of acute distress or SOB noted throughout the shift. IV fluids on RFA #20 with NS running @75 ML/HR. S/P DEBRIDEMENT on right foot. Safety measures in place, Bed in low position, wheels locked, side rails up x2, call light within reach. Will endorse to organ assembler nurse for vikash.
[2020-06-23 20:20] VITALS: BP 163/100
--- NOTE | 2020-06-23 20:20 | NUR ---
RECEICED IN BED ALERT AND ORIENTATED X4. WATCHING TV ASKING FOR A SNACK. STATES HIS BACK IS WERE THE PAIN IS AND NORCO WAS GIVEN "HELPS SOMEWHAT"
[2020-06-23] MEDS: *INSULIN REGULAR(HUMULIN R)HUM 100 UNIT/ML VIAL SQ PRN (21:10)
[2020-06-24] MEDS: ZOSYN IVPB 3.375 G in IV D5W 50ml IV SCH ×5 (00:02→23:54)
[2020-06-24] MEDS: HYDROCODONE/APAP 5/325MG 1 EACH TABLET PO PRN ×3 (00:03→15:49)
[2020-06-24] MEDS: INSULIN REGULAR, HUMAN 100 UNIT/ML 3 ML VIAL SQ PRN ×3 (05:52→17:29)
--- NOTE | 2020-06-24 06:08 | NUR ---
ENDING NOTES: MEDICATED X2 THRU THE NIGHT FOR BACK PAIN WITH NORCO ORDERED. RIGHT FOOT DRESSING CDI. ELEVATED ON A PILLOW. SLEPT LITTLE THIS NIGHT, WATCHING TV
[2020-06-24] MEDS: BLOOD SUGAR DIAGNOSTIC 1 EACH STRIP VI SCH ×4 (07:08→21:32)
--- NOTE | 2020-06-24 07:32 | NUR ---
RN NOTES Received Patient in bed resting comfortably in moderate high back rest. A/O x4, Breathing even, clear, unlabored. No signs of acute distress or SOB noted at this time. IV fluids on RFA #20 with NS running @75 ML/HR. Safety measures in place, Bed in low position, wheels locked, side rails up x2, call light within reach. Will continue to monitor.
[2020-06-24 07:42] LABS: CALCIUM, SERUM 8.1 mg/dL (8.5-10.1); MAGNESIUM 2.1 mg/dL (1.8-2.4); PHOSPHORUS 3.2 mg/dL (2.5-4.9)
[2020-06-24 07:47] LABS: BASOPHILS % (AUTO) 0.5 % (0.0-2.0); EOSINOPHILS % (AUTO) 4.8 % (0.0-6.0); HEMATOCRIT 37 % (39-51); HEMOGLOBIN 12.3 g/dL (13.5-17.5); LYMPHOCYTES # (AUTO) 2.2 /CMM (0.8-4.8); LYMPHOCYTES % (AUTO) 31.1 % (20.0-44.0); MEAN CORPUSCULAR HGB CONC 33 g/dl (31.0-36.0); MEAN CORPUSCULAR VOLUME 86 fL (80-96); MONOCYTES # (AUTO) 0.5 /CMM (0.1-1.30); MONOCYTES % (AUTO) 7.2 % (2.0-12.0); NEUTROPHILS % (AUTO) 56.4 % (43.0-81.0); PLATELET COUNT (AUTO) 271 /CMM (150-450); RED BLOOD CELL COUNT(AUTO) 4.29 MIL/uL (4.5-6.0); WHITE BLOOD COUNT (AUTO) 7.1 K/uL (4.3-11.0)
[2020-06-24 08:00] VITALS: BP 170/108
[2020-06-24] MEDS: ASPIRIN 81 MG TAB.CHEW PO SCH (08:07)
[2020-06-24] MEDS: PREGABALIN 100 MG CAPSULE PO SCH ×3 (08:07→17:01)
[2020-06-24] MEDS: METOPROLOL SUCCINATE 25 MG TAB.SR.24H PO SCH (08:08)
[2020-06-24] MEDS: HEPARIN SODIUM, PORCINE 5000 UNITS/1 ML VIAL SQ SCH ×2 (08:09→21:33)
--- NOTE | 2020-06-24 08:46 | NUR ---
WOUND CARE CONSULT: PT FOLLOWED BY DPM FOR FOOT WOUND. PT DENIES ANY OTHER SKIN ISSUE AND REFUSED FULL SKIN ASSESSMENT. WILL SEE PRN. DEFER TO DPM FOR WOUND TREATMENT PLAN.
[2020-06-24] MEDS: VANCOMYCIN 1.5 GM in IV D5W 500ml IV SCH ×2 (08:59→21:31)
[2020-06-24] MEDS ORDERED: HYDROCODONE/APAP 5/325MG 1 EACH TABLET PO ONE (10:30)
[2020-06-24] MEDS ORDERED: hydrALAZINE HCL 25 MG TABLET PO PRN (10:30)
[2020-06-24 11:00] VITALS: BP 150/90
[2020-06-24] MEDS ORDERED: FEE PK DOSING 1 MIN EA MC ONE (14:37)
[2020-06-24 16:12] VITALS: BP 159/108
[2020-06-24] MEDS: oxyCODONE/APAP (5/325 MG) 1 UDTAB TABLET PO PRN ×2 (17:01→21:36)
[2020-06-24] MEDS: IV NS 0.9% 1,000 ML IV PRN (17:09)
--- NOTE | 2020-06-24 18:30 | NUR ---
RN NOTES Patient in bed resting comfortably in moderate high back rest. A/O x4, Breathing even, clear, unlabored. No signs of acute distress or SOB noted throughout the shift. IV fluids on RFA #20 with NS running @75 ML/HR. Safety measures in place, Bed in low position, wheels locked, side rails up x2, call light within reach. Will endorse to overnight stocker nurse for vikash.
--- NOTE | 2020-06-24 19:10 | NUR ---
MS RN OPENING NOTES Received patient A/O x4, awake on bed watching TV. On RA, denies any discomfort at this time. IVF infusing well via peripheral IV line LAC #20 with NS @ 75ml/hr as ordered. Pt is ambulatory to bathroom with steady gait, independent in ADL. Kept on bed clean, dry and comfortable. Call light within easy reach. Will continue to monitor accordingly.
[2020-06-24 20:00] VITALS: BP 139/80
[2020-06-24] MEDS: ATORVASTATIN 40 MG TABLET PO SCH (21:31)
[2020-06-24] MEDS: *INSULIN REGULAR(HUMULIN R)HUM 100 UNIT/ML VIAL SQ PRN (21:49)
[2020-06-25] MEDS: oxyCODONE/APAP (5/325 MG) 1 UDTAB TABLET PO PRN ×4 (02:18→23:08)
[2020-06-25] MEDS: ZOSYN IVPB 3.375 G in IV D5W 50ml IV SCH ×3 (06:14→17:31)
[2020-06-25] MEDS: BLOOD SUGAR DIAGNOSTIC 1 EACH STRIP VI SCH ×4 (06:37→21:22)
[2020-06-25] MEDS: INSULIN REGULAR, HUMAN 100 UNIT/ML 3 ML VIAL SQ PRN ×3 (06:39→17:29)
--- NOTE | 2020-06-25 06:47 | NUR ---
MS RN CLOSING NOTES Pt asleep on bed, on RA. No new complaints made. Medicated for pain, noted effective. All nursing needs attended, due meds given as ordered. Endorsed.
[2020-06-25 06:59] LABS: BASOPHILS % (AUTO) 0.6 % (0.0-2.0); EOSINOPHILS % (AUTO) 5.2 % (0.0-6.0); HEMATOCRIT 38 % (39-51); HEMOGLOBIN 12.5 g/dL (13.5-17.5); LYMPHOCYTES # (AUTO) 2.3 /CMM (0.8-4.8); LYMPHOCYTES % (AUTO) 35.7 % (20.0-44.0); MEAN CORPUSCULAR HGB CONC 33 g/dl (31.0-36.0); MEAN CORPUSCULAR VOLUME 86 fL (80-96); MONOCYTES # (AUTO) 0.4 /CMM (0.1-1.30); MONOCYTES % (AUTO) 6.3 % (2.0-12.0); NEUTROPHILS # (AUTO) 3.4 /CMM (1.8-8.9); NEUTROPHILS % (AUTO) 52.2 % (43.0-81.0); PLATELET COUNT (AUTO) 275 /CMM (150-450); RED BLOOD CELL COUNT(AUTO) 4.35 MIL/uL (4.5-6.0); WHITE BLOOD COUNT (AUTO) 6.6 K/uL (4.3-11.0)
--- NOTE | 2020-06-25 07:15 | NUR ---
MS RN NOTES PATIENT IN BED ALERT ORIENTED X 4. NO ACUTE DISTRESS NOTED. BREATHING UNLABORED. IV ACCESS PATENT AND INTACT, NO REDNESS, NO SWELLING NOTED. SAFETY MEASURES IN PLACE. CALL LIGHT WITHIN REACH. WILL CONTINUE TO MONITOR ACCORDINGLY.
[2020-06-25 07:24] LABS: CALCIUM, SERUM 8.1 mg/dL (8.5-10.1); CREATININE 0.9 mg/dL (0.6-1.3); MAGNESIUM 2.2 mg/dL (1.8-2.4); PHOSPHORUS 3.2 mg/dL (2.5-4.9); POTASSIUM 3.8 mmol/L (3.5-5.1)
[2020-06-25 08:00] VITALS: BP 144/91
[2020-06-25] MEDS: PREGABALIN 100 MG CAPSULE PO SCH ×3 (08:48→17:27)
[2020-06-25] MEDS: ASPIRIN 81 MG TAB.CHEW PO SCH (08:49)
[2020-06-25] MEDS: HEPARIN SODIUM, PORCINE 5000 UNITS/1 ML VIAL SQ SCH ×2 (08:49→21:22)
[2020-06-25] MEDS: METOPROLOL SUCCINATE 25 MG TAB.SR.24H PO SCH (08:50)
[2020-06-25] MEDS: VANCOMYCIN 1.5 GM in IV D5W 500ml IV SCH ×2 (08:56→21:22)
[2020-06-25] MEDS ORDERED: Medication Not On Formulary EA (Glipizide/Metformin Hcl (Glipizide-Metformin 5-500 Mg) 1 PO SCH (09:30)
[2020-06-25] MEDS: METFORMIN 500 MG TABLET PO SCH ×2 (09:33→17:28)
[2020-06-25] MEDS: glipiZIDE 5 MG TABLET PO SCH ×2 (09:33→17:28)
[2020-06-25] MEDS: HYDROCODONE/APAP 5/325MG 1 EACH TABLET PO PRN (12:17)
[2020-06-25] MEDS: IV NS 0.9% 1,000 ML IV PRN (14:14)
[2020-06-25 18:40] VITALS: BP 145/89
--- NOTE | 2020-06-25 19:00 | NUR ---
MS RN NOTES PATIENT IN BED ALERT ORIENTED X 4. NO ACUTE DISTRESS NOTED. BREATHING UNLABORED. IV ACCESS PATENT AND INTACT, NO REDNESS, NO SWELLING NOTED. NEEDS ATTENDED AND ANTICIPATED. KEPT COMFORTABLE. SAFETY MEASURES IN PLACE. CALL LIGHT WITHIN REACH. WILL ENDORSE TO NIGHT FOR CONTINUITY OF CARE
[2020-06-25 20:00] VITALS: BP 166/86
[2020-06-25] MEDS: ATORVASTATIN 40 MG TABLET PO SCH (21:22)
[2020-06-25] MEDS: *INSULIN REGULAR(HUMULIN R)HUM 100 UNIT/ML VIAL SQ PRN (21:34)
[2020-06-25] MEDS: NICOTINE PATCH (14MG) 14 MG PATCH.TD24 TD SCH (23:05)
[2020-06-26] MEDS: ZOSYN IVPB 3.375 G in IV D5W 50ml IV SCH ×4 (00:18→18:20)
[2020-06-26] MEDS: oxyCODONE/APAP (5/325 MG) 1 UDTAB TABLET PO PRN ×3 (04:12→20:39)
--- NOTE | 2020-06-26 04:15 | NUR ---
ms rn note administered prn Percocet 10mg for pain 8/10 in back. will continue to monitor.
[2020-06-26 05:00] VITALS: BP 138/79
[2020-06-26] MEDS: BLOOD SUGAR DIAGNOSTIC 1 EACH STRIP VI SCH ×4 (06:13→21:10)
[2020-06-26 06:29] LABS: CALCIUM, SERUM 7.8 mg/dL (8.5-10.1); MAGNESIUM 1.9 mg/dL (1.8-2.4); PHOSPHORUS 3.2 mg/dL (2.5-4.9); POTASSIUM 3.6 mmol/L (3.5-5.1)
[2020-06-26 06:31] LABS: BASOPHILS % (AUTO) 0.5 % (0.0-2.0); EOSINOPHILS % (AUTO) 4.7 % (0.0-6.0); HEMATOCRIT 36 % (39-51); HEMOGLOBIN 12.1 g/dL (13.5-17.5); MEAN CORPUSCULAR HGB CONC 34 g/dl (31.0-36.0); MEAN CORPUSCULAR VOLUME 86 fL (80-96); MONOCYTES # (AUTO) 0.4 /CMM (0.1-1.30); MONOCYTES % (AUTO) 6.8 % (2.0-12.0); NEUTROPHILS # (AUTO) 3.8 /CMM (1.8-8.9); PLATELET COUNT (AUTO) 267 /CMM (150-450); RED BLOOD CELL COUNT(AUTO) 4.19 MIL/uL (4.5-6.0); WHITE BLOOD COUNT (AUTO) 6.6 K/uL (4.3-11.0)
--- NOTE | 2020-06-26 06:45 | NUR ---
MS RN NOTES AWAKE & RESPONSIVE. NOT IN ANY DISTRESS. NO SOB NOTED. DENIES ANY PAIN OR DISCOMFORT AT THIS TIME. WITH IVF INFUSING WELL. MONITORED ACCORDINGLY. CALL LIGHT WITHIN REACH. BED IN LOWEST POSITION. SR UP X 2 FOR SAFETY. WILL ENDORSE TO NEXT SHIFT.
[2020-06-26] MEDS: INSULIN REGULAR, HUMAN 100 UNIT/ML 3 ML VIAL SQ PRN ×3 (06:57→17:52)
[2020-06-26 08:00] VITALS: BP 155/91
[2020-06-26] MEDS: PREGABALIN 100 MG CAPSULE PO SCH ×3 (08:23→17:47)
[2020-06-26] MEDS: METFORMIN 500 MG TABLET PO SCH ×2 (08:23→17:47)
[2020-06-26] MEDS: ASPIRIN 81 MG TAB.CHEW PO SCH (08:23)
[2020-06-26] MEDS: glipiZIDE 5 MG TABLET PO SCH ×2 (08:23→17:47)
[2020-06-26] MEDS: METOPROLOL SUCCINATE 25 MG TAB.SR.24H PO SCH (08:24)
[2020-06-26] MEDS: HEPARIN SODIUM, PORCINE 5000 UNITS/1 ML VIAL SQ SCH ×2 (08:24→20:28)
[2020-06-26] MEDS: NICOTINE PATCH (14MG) 14 MG PATCH.TD24 TD SCH (08:24)
[2020-06-26] MEDS: IV NS 0.9% 1,000 ML IV PRN (08:26)
[2020-06-26] MEDS: HYDROCODONE/APAP 5/325MG 1 EACH TABLET PO PRN (08:40)
--- NOTE | 2020-06-26 09:40 | NUR ---
MS RN NOTES CALLED PHARMACY TO FOLLOW UP VANCOMYCIN IV NOT AVAILABLE ON THE FLOOR YET, PHARMACY TO BRING MEDICATION. WILL ADMINISTER ONCE AVAILABLE,.
--- NOTE | 2020-06-26 10:11 | NUR ---
MS RN NOTES PATIENT SEEN AND EVALUATED BY DR SELBY WITH NEW ORDERS MADE, NOTED AND CARRIED OUT. PATIENT FOR ID CONSULT, DR CARVAJAL NOTIFIED ID MD.
[2020-06-26] MEDS: VANCOMYCIN 1.5 GM in IV D5W 500ml IV SCH ×2 (10:14→21:09)
[2020-06-26] MEDS ORDERED: ACETAMINOPHEN 325 MG TABLET PO PRN (10:30)
--- NOTE | 2020-06-26 15:30 | NUR ---
MS THACKER RN NOTES NOTIFIED PATIENT REGARDING CRUTCHES NOT COVERED BY INSURANCE, INFORMATION PROVIDED WHERE HE CAN GET IT FROM, PER PATIENT HE'S ABLE TO PROVIDE HIS OWN CRUTCHES UPON DISCHARGE.
[2020-06-26 18:05] VITALS: BP 138/86
[2020-06-26 20:00] VITALS: BP 170/90
[2020-06-26] MEDS: ATORVASTATIN 40 MG TABLET PO SCH (21:10)
[2020-06-26] MEDS: *INSULIN REGULAR(HUMULIN R)HUM 100 UNIT/ML VIAL SQ PRN (21:12)
[2020-06-27] MEDS: ZOSYN IVPB 3.375 G in IV D5W 50ml IV SCH ×3 (00:17→12:45)
[2020-06-27] MEDS: oxyCODONE/APAP (5/325 MG) 1 UDTAB TABLET PO PRN ×2 (00:27→06:33)
--- NOTE | 2020-06-27 06:22 | NUR ---
MS RN NOTES AWAKE & RESPONSIVE. NOT IN ANY DISTRESS. NO SOB NOTED. DENIES ANY PAIN OR DISCOMFORT AT THIS TIME. WITH IV-HL PATENT & INTACT. MONITORED ACCORDINGLY. CALL LIGHT WITHIN REACH. BED IN LOWEST POSITION. SR UP X 2 FOR SAFETY. WILL ENDORSE TO NEXT SHIFT.
[2020-06-27 06:25] VITALS: BP 164/88
[2020-06-27] MEDS: INSULIN REGULAR, HUMAN 100 UNIT/ML 3 ML VIAL SQ PRN ×2 (06:46→12:47)
[2020-06-27] MEDS: BLOOD SUGAR DIAGNOSTIC 1 EACH STRIP VI SCH ×2 (06:47→12:47)
--- NOTE | 2020-06-27 07:15 | NUR ---
MS RN NOTES PATIENT IN BED ALERT ORIENTED X 4. NO ACUTE DISTRESS NOTED. BREATHING UNLABORED. IV ACCESS PATENT AND INTACT, NO REDNESS, NO SWELLING NOTED. DENIED PAIN AT THIS TIME. SAFETY MEASURES IN PLACE. CALL LIGHT WITHIN REACH. WILL CONTINUE TO MONITOR ACCORDINGLY.
[2020-06-27 08:00] VITALS: BP 158/92
[2020-06-27] MEDS: PREGABALIN 100 MG CAPSULE PO SCH ×2 (08:29→12:47)
[2020-06-27] MEDS: NICOTINE PATCH (14MG) 14 MG PATCH.TD24 TD SCH (08:29)
[2020-06-27] MEDS: ASPIRIN 81 MG TAB.CHEW PO SCH (08:29)
[2020-06-27] MEDS: METFORMIN 500 MG TABLET PO SCH (08:29)
[2020-06-27] MEDS: glipiZIDE 5 MG TABLET PO SCH (08:29)
[2020-06-27 08:30] VITALS: BP 158/92
[2020-06-27] MEDS: HEPARIN SODIUM, PORCINE 5000 UNITS/1 ML VIAL SQ SCH (08:30)
[2020-06-27] MEDS: METOPROLOL SUCCINATE 25 MG TAB.SR.24H PO SCH (08:30)
[2020-06-27 08:57] LABS: BASOPHILS # (AUTO) 0.1 /CMM (0.0-0.2); BASOPHILS % (AUTO) 0.8 % (0.0-2.0); HEMATOCRIT 40 % (39-51); HEMOGLOBIN 13.2 g/dL (13.5-17.5); LYMPHOCYTES # (AUTO) 2.2 /CMM (0.8-4.8); LYMPHOCYTES % (AUTO) 29.3 % (20.0-44.0); MEAN CORPUSCULAR HGB CONC 33 g/dl (31.0-36.0); MEAN CORPUSCULAR VOLUME 87 fL (80-96); MONOCYTES # (AUTO) 0.4 /CMM (0.1-1.30); NEUTROPHILS # (AUTO) 4.4 /CMM (1.8-8.9); NEUTROPHILS % (AUTO) 58.9 % (43.0-81.0); PLATELET COUNT (AUTO) 294 /CMM (150-450); RED BLOOD CELL COUNT(AUTO) 4.56 MIL/uL (4.5-6.0); WHITE BLOOD COUNT (AUTO) 7.5 K/uL (4.3-11.0)
[2020-06-27 09:18] LABS: CALCIUM, SERUM 8.3 mg/dL (8.5-10.1); CREATININE 1.1 mg/dL (0.6-1.3); PHOSPHORUS 3.2 mg/dL (2.5-4.9); POTASSIUM 3.6 mmol/L (3.5-5.1)
[2020-06-27] MEDS ORDERED: CEPH-570 PO (10:03)
[2020-06-27] MEDS ORDERED: SULF1TAB48 PO (10:03)
[2020-06-27] MEDS ORDERED: NICO-676 TD (10:03)
[2020-06-27] MEDS ORDERED: VANCOMYCIN 1.5 GM in IV D5W 500ml IV SCH (15:00)
--- NOTE | 2020-06-27 15:30 | NUR ---
MS ASSOCIATE DIRECTOR OF SALES NOTES PATIENT DISCHARGE HOME WITH STABLE VITAL SIGNS, ALERT ORIENTED X 4. NO ACUTE DISTRESS NOTED. BREATHING UNLABORED.DENIED ANY PAIN, NO FACIAL GRIMACING NOTED. DISCHARGE INSTRUCTIONS GIVEN TO THE PATIENT INCLUDING FOLLOW UP APPOINTMENTS, FOLLOW UP WITH PRIMARY DOCTOR, DOCTOR CEDILLO, WOUND CLINIC , ASSISTED HOME HEALTH AND NEW PRESCRIPTIONS, VERBALIZED UNDERSTANDING. ALL BELONGINGS ACCOUNTED FOR. IV ACCESS REMOVED, NO REDNESS, NO SWELLING, NO BLEEDING NOTED. ALL BELONGINGS ACCOUNTED FOR. RIGHT FOOT DRESSING CLEAN DRY AND INTACT. ASSISTED TO THE LOBBY , PICKED UP VIA PRIVATE CAR IN STABLE CONDITION.
== END 2020-06-27 15:30 | disposition home health service (06) | DRG 570 ==
LOC: ER 19:44 → MEDSG2 21:02
PROVIDERS: ADMIT Nurse Practitioner Acute Care; ATTEND Student in an Organized Health Care Education/Training Program
PROC: 0JBQ0ZZ Excision of Right Foot Subcutaneous Tissue and Fascia, Open Approach (ICD-10-PCS; principal; 2020-06-23)
DX: L03.115 Cellulitis of right lower limb (principal); N17.0 Acute kidney failure with tubular necrosis; E44.1 Mild protein-calorie malnutrition; D68.59 Other primary thrombophilia; E11.621 Type 2 diabetes mellitus with foot ulcer; E11.42 Type 2 diabetes mellitus with diabetic polyneuropathy; E11.628 Type 2 diabetes mellitus with other skin complications; E11.65 Type 2 diabetes mellitus with hyperglycemia; Z79.899 Other long term (current) drug therapy; Z79.82 Long term (current) use of aspirin; G89.29 Other chronic pain; E78.5 Hyperlipidemia, unspecified; F12.90 Cannabis use, unspecified, uncomplicated; E78.1 Pure hyperglyceridemia; D64.9 Anemia, unspecified; E66.01 Morbid (severe) obesity due to excess calories; Z68.35 Body mass index [BMI] 35.0-35.9, adult; Z83.3 Family history of diabetes mellitus; Z91.14 Patient's other noncompliance with medication regimen; L97.519 Non-pressure chronic ulcer of other part of right foot with unspecified severity; Z72.0 Tobacco use; N13.9 Obstructive and reflux uropathy, unspecified; E11.610 Type 2 diabetes mellitus with diabetic neuropathic arthropathy
CPT/HCPCS: 36415; 71045-TC; 73630-TC; 73718-TC; 73721-TC; 80048-TC; 80202-TC; 82962-TC; 83605-TC; 83735-TC; 84100-TC; 84484-TC; 85025-TC; 85652-TC; 85730-TC; 86140-TC; 87040-TC; 87070-TC; 87081-TC; 97116-TC; 97530-TC; A6403; G0378; J1644; J1815; J2543; J3370; J7030; J7060

== ENCOUNTER 2020-07-09 12:45 | Outpatient (CLI) | payer MEDICARE, OTHER ==
[~2020-07-09 12:45] MED LIST changes: +CEPH-570 PO; +NICO-676 TD; +SULF1TAB48 PO
== END 2020-07-09 23:59 | disposition home or self-care (01) ==
LOC: WOU 12:45
PROVIDERS: ATTEND Podiatrist Foot & Ankle Surgery
DX: E11.621 Type 2 diabetes mellitus with foot ulcer (principal); L97.412 Non-pressure chronic ulcer of right heel and midfoot with fat layer exposed; E11.42 Type 2 diabetes mellitus with diabetic polyneuropathy; E11.610 Type 2 diabetes mellitus with diabetic neuropathic arthropathy; Z79.4 Long term (current) use of insulin; F17.210 Nicotine dependence, cigarettes, uncomplicated
CPT/HCPCS: 11042

== ENCOUNTER 2020-07-25 08:20 | Outpatient (CLI) | payer MEDICARE, OTHER | END 2020-07-25 23:59 | disposition home or self-care (01) | LOC: WOU 08:20 | PROVIDERS: ATTEND Podiatrist Foot & Ankle Surgery | DX: E11.621 Type 2 diabetes mellitus with foot ulcer (principal); L97.412 Non-pressure chronic ulcer of right heel and midfoot with fat layer exposed; E11.42 Type 2 diabetes mellitus with diabetic polyneuropathy; E11.610 Type 2 diabetes mellitus with diabetic neuropathic arthropathy; Z79.4 Long term (current) use of insulin | CPT/HCPCS: 11042; A6209 ==

== ENCOUNTER 2020-08-01 10:34 | Outpatient (CLI) | payer MEDICARE, OTHER | END 2020-08-01 23:59 | disposition home or self-care (01) | LOC: WOU 10:34 | PROVIDERS: ATTEND Podiatrist Foot & Ankle Surgery | DX: E11.621 Type 2 diabetes mellitus with foot ulcer (principal); L97.412 Non-pressure chronic ulcer of right heel and midfoot with fat layer exposed; E11.610 Type 2 diabetes mellitus with diabetic neuropathic arthropathy; E11.42 Type 2 diabetes mellitus with diabetic polyneuropathy; Z79.4 Long term (current) use of insulin | CPT/HCPCS: 11042; A6209 ==

== ENCOUNTER 2020-08-08 11:00 | Outpatient (CLI) | payer MEDICARE, OTHER | END 2020-08-08 23:59 | disposition home or self-care (01) | LOC: WOU 11:00 | PROVIDERS: ATTEND Podiatrist Foot & Ankle Surgery | DX: E11.621 Type 2 diabetes mellitus with foot ulcer (principal); L97.412 Non-pressure chronic ulcer of right heel and midfoot with fat layer exposed; E11.610 Type 2 diabetes mellitus with diabetic neuropathic arthropathy; Z79.4 Long term (current) use of insulin; B35.1 Tinea unguium; Z74.09 Other reduced mobility | CPT/HCPCS: 11042; A6209 ==

== ENCOUNTER 2021-09-09 13:45 | Outpatient (CLI) | payer MEDICARE, OTHER ==
[~2021-09-09 13:45] MED LIST changes: +LISI10TA29 PO; -LISI10TA5 PO
== END 2021-09-09 23:59 | disposition home or self-care (01) ==
LOC: WOU 13:45
PROVIDERS: ATTEND Podiatrist Foot & Ankle Surgery
DX: E11.621 Type 2 diabetes mellitus with foot ulcer (principal); L97.412 Non-pressure chronic ulcer of right heel and midfoot with fat layer exposed; E11.42 Type 2 diabetes mellitus with diabetic polyneuropathy; E11.610 Type 2 diabetes mellitus with diabetic neuropathic arthropathy; F17.210 Nicotine dependence, cigarettes, uncomplicated; L03.115 Cellulitis of right lower limb; R60.0 Localized edema
CPT/HCPCS: 11042; A6209

== ENCOUNTER 2021-09-30 12:48 | Outpatient (CLI) | payer MEDICARE, OTHER | END 2021-09-30 23:59 | disposition home or self-care (01) | LOC: WOU 12:48 | PROVIDERS: ATTEND Podiatrist Foot & Ankle Surgery | DX: E11.621 Type 2 diabetes mellitus with foot ulcer (principal); L97.412 Non-pressure chronic ulcer of right heel and midfoot with fat layer exposed; I87.312 Chronic venous hypertension (idiopathic) with ulcer of left lower extremity; L97.821 Non-pressure chronic ulcer of other part of left lower leg limited to breakdown of skin; E11.610 Type 2 diabetes mellitus with diabetic neuropathic arthropathy; E11.42 Type 2 diabetes mellitus with diabetic polyneuropathy; L03.115 Cellulitis of right lower limb; Z79.4 Long term (current) use of insulin | CPT/HCPCS: 11042; A6209; A6197 ==

== ENCOUNTER 2021-10-07 12:50 | Outpatient (CLI) | payer MEDICARE, OTHER | END 2021-10-07 23:59 | disposition home or self-care (01) | LOC: WOU 12:50 | PROVIDERS: ATTEND Podiatrist Foot & Ankle Surgery | DX: E11.621 Type 2 diabetes mellitus with foot ulcer (principal); L97.412 Non-pressure chronic ulcer of right heel and midfoot with fat layer exposed; E11.610 Type 2 diabetes mellitus with diabetic neuropathic arthropathy; E11.42 Type 2 diabetes mellitus with diabetic polyneuropathy; I87.2 Venous insufficiency (chronic) (peripheral); L03.115 Cellulitis of right lower limb; R60.0 Localized edema; M21.41 Flat foot [pes planus] (acquired), right foot; Z79.4 Long term (current) use of insulin | CPT/HCPCS: 11042; A6209 ==

== ENCOUNTER 2021-10-14 12:45 | Outpatient (CLI) | payer MEDICARE, OTHER | END 2021-10-14 23:59 | disposition home or self-care (01) | LOC: WOU 12:45 | PROVIDERS: ATTEND Podiatrist Foot & Ankle Surgery | DX: E11.621 Type 2 diabetes mellitus with foot ulcer (principal); L97.412 Non-pressure chronic ulcer of right heel and midfoot with fat layer exposed; E11.610 Type 2 diabetes mellitus with diabetic neuropathic arthropathy; E11.42 Type 2 diabetes mellitus with diabetic polyneuropathy; R60.0 Localized edema; I87.2 Venous insufficiency (chronic) (peripheral); F17.210 Nicotine dependence, cigarettes, uncomplicated; Z79.4 Long term (current) use of insulin | CPT/HCPCS: 11042; A6209 ==

== ENCOUNTER 2021-10-28 13:15 | Outpatient (CLI) | payer MEDICARE, OTHER | END 2021-10-28 23:59 | disposition home or self-care (01) | LOC: WOU 13:15 | PROVIDERS: ATTEND Podiatrist Foot & Ankle Surgery | DX: E11.621 Type 2 diabetes mellitus with foot ulcer (principal); L97.412 Non-pressure chronic ulcer of right heel and midfoot with fat layer exposed; E11.42 Type 2 diabetes mellitus with diabetic polyneuropathy; E11.610 Type 2 diabetes mellitus with diabetic neuropathic arthropathy; L03.115 Cellulitis of right lower limb; M21.41 Flat foot [pes planus] (acquired), right foot; F17.210 Nicotine dependence, cigarettes, uncomplicated; Z79.4 Long term (current) use of insulin; Z79.84 Long term (current) use of oral hypoglycemic drugs | CPT/HCPCS: 11042; A6209 ==

== ENCOUNTER 2021-10-30 11:43 | Emergency (ER) | payer MEDICARE, OTHER ==
[~2021-10-30] VITALS: Ht 185.4 cm; Wt 127.0 kg
--- NOTE | 2021-10-30 11:43 | NUR ---
BIBS C/O CHEST PAIN R/T LEFT SHOULDER X 2 DAYS. PT STATED THAT CURRENT PAIN LEVEL IS 7/10 ON PS. PATIENT IS A&OX4. VITALS ARE WITHIN PT BASELINE. BREATHING IS REGULAR AND UNLABORED. PT WAS ATTACHED TO HYDRATOR AND PULSE OX. WILL CONTINUE TO MONITOR.
--- NOTE | 2021-10-30 11:45 | NUR ---
IV WAS ESTABLISH; 20G R AC. LABS WERE DRAWN AND COLLECTED. ROUTE CDL DRIVER AT BEDSIDE.
[2021-10-30] MEDS ORDERED: NITROGLYCERIN 0.4 MG/TAB BOTTLE SL ONE (12:00)
[2021-10-30] MEDS ORDERED: ASPIRIN 325 MG TABLET PO ONE (12:00)
[2021-10-30] MEDS ORDERED: NITROGLYCERIN 0.4 MG/TAB BOTTLE ONE (12:04)
[2021-10-30] MEDS ORDERED: ASPIRIN 325 MG TABLET ONE (12:05)
[2021-10-30 12:08] LABS: BASOPHILS % (AUTO) 0.5 % (0.0-2.0); EOSINOPHILS % (AUTO) 3.9 % (0.0-6.0); HEMATOCRIT 29 % (39-51); HEMOGLOBIN 9.9 g/dL (13.5-17.5); LYMPHOCYTES # (AUTO) 2.1 K/uL (0.8-4.8); LYMPHOCYTES % (AUTO) 23.1 % (20.0-44.0); MEAN CORPUSCULAR HGB CONC 34 g/dl (31.0-36.0); MEAN CORPUSCULAR VOLUME 87 fL (80-96); MONOCYTES # (AUTO) 0.5 K/uL (0.1-1.30); MONOCYTES % (AUTO) 5.9 % (2.0-12.0); NEUTROPHILS # (AUTO) 6.1 K/uL (1.8-8.9); NEUTROPHILS % (AUTO) 66.6 % (43.0-81.0); PLATELET COUNT (AUTO) 310 K/uL (150-450); RED BLOOD CELL COUNT(AUTO) 3.36 MIL/uL (4.5-6.0); WHITE BLOOD COUNT (AUTO) 9.2 K/uL (4.3-11.0)
[2021-10-30 12:17] LABS: CARBON DIOXIDE 24 mmol/L (21-32); CHLORIDE 106 mmol/L (98-107); CREATININE 1.8 mg/dL (0.6-1.3); GLUCOSE 234 mg/dL (74-106); POTASSIUM 4.1 mmol/L (3.5-5.1); SODIUM SERUM 138 mmol/L (136-145); UREA NITROGEN, BLOOD 26 mg/dL (7-18)
[2021-10-30 13:53] VITALS: BP 138/84
--- NOTE | 2021-10-30 13:53 | NUR ---
IV removed. Catheter intact and site benign. Pressure and 4x4 applied to site. No bleeding noted. Patient discharged to home in stable condition. Written and verbal after care instructions given. Patient verbalizes understanding of instruction.
== END 2021-10-30 13:54 | disposition home or self-care (01) ==
LOC: ER 11:47
DX: R07.89 Other chest pain (principal); I10 Essential (primary) hypertension; E11.40 Type 2 diabetes mellitus with diabetic neuropathy, unspecified; G89.29 Other chronic pain; F17.200 Nicotine dependence, unspecified, uncomplicated; Z98.890 Other specified postprocedural states; Z79.82 Long term (current) use of aspirin; Z79.899 Other long term (current) drug therapy
CPT/HCPCS: 36415; 71045-TC; 80048-TC; 84484-TC; 85025-TC

== ENCOUNTER 2022-12-05 12:34 | Inpatient (IN) | payer MEDICARE, OTHER ==
[~2022-12-05] VITALS: Ht 182.9 cm; Wt 136.1 kg
[2022-12-05 14:03] LABS: BASOPHILS % (AUTO) 0.2 % (0.0-2.0); EOSINOPHILS % (AUTO) 3.4 % (0.0-6.0); HEMATOCRIT 27 % (39-51); HEMOGLOBIN 8.7 g/dL (13.5-17.5); LYMPHOCYTES # (AUTO) 0.9 K/uL (0.8-4.8); LYMPHOCYTES % (AUTO) 9.6 % (20.0-44.0); MEAN CORPUSCULAR HGB CONC 32 g/dl (31.0-36.0); MEAN CORPUSCULAR VOLUME 84 fL (80-96); MONOCYTES # (AUTO) 0.5 K/uL (0.1-1.30); MONOCYTES % (AUTO) 5.3 % (2.0-12.0); NEUTROPHILS % (AUTO) 81.5 % (43.0-81.0); PLATELET COUNT (AUTO) 414 K/uL (150-450); RED BLOOD CELL COUNT(AUTO) 3.27 MIL/uL (4.5-6.0); WHITE BLOOD COUNT (AUTO) 9.8 K/uL (4.3-11.0)
[2022-12-05 14:27] LABS: CALCIUM, SERUM 8.4 mg/dL (8.5-10.1); CREATININE 3.2 mg/dL (0.6-1.3); POTASSIUM 5.5 mmol/L (3.5-5.1)
[2022-12-05 14:34] LABS: ALBUMIN 2.3 g/dL (3.4-5.0); BILIRUBIN,DIRECT 0.1 mg/dL (0.0-0.2); BILIRUBIN,TOTAL 0.2 mg/dL (0.2-1.0); TOTAL PROTEIN, SERUM 6.6 g/dL (6.4-8.2)
[2022-12-05] MEDS ORDERED: FUROSEMIDE 40 MG/4 ML VIAL ONE (14:47)
[2022-12-05] MEDS ORDERED: FUROSEMIDE 40 MG/4 ML VIAL IV ONE (15:00)
[2022-12-05 16:41] LABS: BILIRUBIN,URINE NEGATIVE (NEGATIVE); COLOR,URINE YELLOW (YELLOW); LEUKOCYTE ESTERASE ,URINE NEGATIVE (NEGATIVE); NITRITE, URINE NEGATIVE (NEGATIVE); PROTEIN,URINE 3+ mg/dl (NEGATIVE); UGLUCOSE TRACE mg/dL (NEGATIVE); UROBILINOGEN,URINE 0.2 EU/dL (0.2)
[2022-12-05] MEDS: BLOOD SUGAR DIAGNOSTIC 1 EACH STRIP IN SCH (18:00)
[2022-12-05] MEDS ORDERED: hydrALAZINE HCL IV 20 MG VIAL IV PRN (18:00)
[2022-12-05] MEDS ORDERED: DEXTROSE 50%-WATER 50 ML DISP.SYRIN IV PRN (18:00)
[2022-12-05] MEDS ORDERED: ONDANSETRON HCL/PF 4 MG/2 ML VIAL IVP PRN (18:00)
[2022-12-05] MEDS ORDERED: Z GUARD REMEDY 4 OZ OINT TP PRN (18:00)
[2022-12-05] MEDS ORDERED: HYDROCODONE/APAP 5/325MG TABLET PO ONE (18:00)
[2022-12-05] MEDS ORDERED: MAGNESIUM HYDROXIDE 30 ML UDC PO PRN (18:00)
[2022-12-05] MEDS ORDERED: ACETAMINOPHEN 325 MG TABLET PO PRN (18:00)
[2022-12-05] MEDS ORDERED: MAG HYDROX/AL HYDROX/SIMETH 30 ML UDC PO PRN (18:00)
[2022-12-05 18:16] LABS: BACTERIA,URINE None seen /HPF (None Seen); RBC,URINE 0-2 /HPF (0-2); SQUAMOUS EPITHELIAL CELL,UR 0-2 /HPF (None Seen); WBC,URINE 0-2 /HPF (0-3)
[2022-12-05] MEDS ORDERED: HYDROCODONE/APAP 5/325MG TABLET ONE (18:29)
[2022-12-05] MEDS: METOPROLOL SUCCINATE 25 MG TAB.SR.24H PO SCH ×2 (21:00)
[2022-12-05] MEDS: ATORVASTATIN 40 MG TABLET PO SCH (22:00)
[2022-12-05] MEDS ORDERED: ACETAMINOPHEN 325 MG TABLET ONE (23:37)
[2022-12-06] MEDS ORDERED: ATORVASTATIN 40 MG TABLET ONE (01:21)
[2022-12-06] MEDS ORDERED: METOPROLOL SUCCINATE 25 MG TAB.SR.24H ONE (01:21)
[2022-12-06] MEDS ORDERED: INSULIN REGULAR, HUMAN 100 UNIT/ML 10 ML VIAL ONE (01:31)
[2022-12-06 04:55] LABS: BASOPHILS % (AUTO) 0.5 % (0.0-2.0); EOSINOPHILS % (AUTO) 4.9 % (0.0-6.0); HEMATOCRIT 26 % (39-51); HEMOGLOBIN 8.1 g/dL (13.5-17.5); LYMPHOCYTES # (AUTO) 1.2 K/uL (0.8-4.8); LYMPHOCYTES % (AUTO) 17.9 % (20.0-44.0); MEAN CORPUSCULAR HGB CONC 32 g/dl (31.0-36.0); MEAN CORPUSCULAR VOLUME 84 fL (80-96); MONOCYTES # (AUTO) 0.6 K/uL (0.1-1.30); MONOCYTES % (AUTO) 8.2 % (2.0-12.0); NEUTROPHILS # (AUTO) 4.7 K/uL (1.8-8.9); NEUTROPHILS % (AUTO) 68.5 % (43.0-81.0); PLATELET COUNT (AUTO) 375 K/uL (150-450); RED BLOOD CELL COUNT(AUTO) 3.05 MIL/uL (4.5-6.0); WHITE BLOOD COUNT (AUTO) 6.9 K/uL (4.3-11.0)
[2022-12-06 05:05] LABS: CALCIUM, SERUM 8.1 mg/dL (8.5-10.1); CREATININE 3.4 mg/dL (0.6-1.3); MAGNESIUM 2.4 mg/dL (1.8-2.4); PHOSPHORUS 5.2 mg/dL (2.5-4.9); POTASSIUM 5.4 mmol/L (3.5-5.1)
[2022-12-06] MEDS: BLOOD SUGAR DIAGNOSTIC 1 EACH STRIP IN SCH ×4 (06:15→17:32)
[2022-12-06 07:00] VITALS: BP 160/85
[2022-12-06] MEDS: INSULIN REGULAR, HUMAN 100 UNIT/ML 3 ML VIAL SQ PRN ×3 (07:00→17:34)
[2022-12-06] MEDS ORDERED: PREGABALIN 25 MG CAPSULE ONE (07:49)
[2022-12-06] MEDS ORDERED: FUROSEMIDE 40 MG/4 ML VIAL ONE (07:49)
[2022-12-06] MEDS ORDERED: CYCLOBENZAPRINE 10 MG TABLET ONE (07:50)
[2022-12-06] MEDS ORDERED: ASPIRIN 81 MG TAB.CHEW ONE (07:50)
[2022-12-06] MEDS ORDERED: LISINOPRIL (20MG) 20 MG TABLET ONE (07:50)
[2022-12-06] MEDS ORDERED: oxyCODONE/APAP (5/325 MG) 1 UDTAB TABLET ONE (07:59)
[2022-12-06] MEDS: oxyCODONE/APAP (5/325 MG) 1 UDTAB TABLET PO PRN ×2 (08:02→16:12)
[2022-12-06] MEDS: ASPIRIN 81 MG TAB.CHEW PO SCH (08:11)
[2022-12-06] MEDS: PREGABALIN 25 MG CAPSULE PO SCH ×3 (08:12→16:07)
[2022-12-06] MEDS: CYCLOBENZAPRINE 10 MG TABLET PO SCH ×3 (08:12→16:07)
[2022-12-06] MEDS ORDERED: FUROSEMIDE 40 MG/4 ML VIAL IV SCH (09:00)
[2022-12-06] MEDS ORDERED: LISINOPRIL (10MG) 10 MG TABLET PO SCH (09:00)
[2022-12-06] MEDS: METOPROLOL SUCCINATE 25 MG TAB.SR.24H PO SCH ×4 (09:00→21:12)
[2022-12-06] MEDS ORDERED: METOPROLOL SUCCINATE 25 MG TAB.SR.24H PO SCH (09:00)
[2022-12-06] MEDS: hydrALAZINE HCL 50 MG TABLET PO SCH ×3 (09:36→16:08)
[2022-12-06] MEDS: NITROGLYCERIN 30 GM TUBE TP SCH ×2 (09:59→21:12)
[2022-12-06 16:00] VITALS: BP 169/80
[2022-12-06 20:00] VITALS: BP 132/77
[2022-12-06] MEDS: ATORVASTATIN 40 MG TABLET PO SCH (21:13)
[2022-12-07] VITALS: BP 132/80
[2022-12-07] MEDS: BLOOD SUGAR DIAGNOSTIC 1 EACH STRIP IN SCH ×4 (00:52→17:12)
[2022-12-07] MEDS: INSULIN REGULAR, HUMAN 100 UNIT/ML 3 ML VIAL SQ PRN ×3 (00:54→11:15)
[2022-12-07] MEDS: oxyCODONE/APAP (5/325 MG) 1 UDTAB TABLET PO PRN ×4 (00:59→22:08)
[2022-12-07 04:00] VITALS: BP 130/75
[2022-12-07 07:07] LABS: BASOPHILS % (AUTO) 0.4 % (0.0-2.0); HEMATOCRIT 24 % (39-51); LYMPHOCYTES # (AUTO) 1.3 K/uL (0.8-4.8); LYMPHOCYTES % (AUTO) 17.5 % (20.0-44.0); MEAN CORPUSCULAR HGB CONC 33 g/dl (31.0-36.0); MEAN CORPUSCULAR VOLUME 83 fL (80-96); MONOCYTES # (AUTO) 0.6 K/uL (0.1-1.30); MONOCYTES % (AUTO) 8.7 % (2.0-12.0); NEUTROPHILS # (AUTO) 4.9 K/uL (1.8-8.9); NEUTROPHILS % (AUTO) 68.4 % (43.0-81.0); PLATELET COUNT (AUTO) 369 K/uL (150-450); RED BLOOD CELL COUNT(AUTO) 2.94 MIL/uL (4.5-6.0); WHITE BLOOD COUNT (AUTO) 7.2 K/uL (4.3-11.0)
[2022-12-07 07:53] LABS: ALBUMIN 2.1 g/dL (3.4-5.0); BILIRUBIN,TOTAL 0.2 mg/dL (0.2-1.0); CALCIUM, SERUM 8.2 mg/dL (8.5-10.1); CREATININE 3.4 mg/dL (0.6-1.3); MAGNESIUM 2.4 mg/dL (1.8-2.4); PHOSPHORUS 5.6 mg/dL (2.5-4.9); POTASSIUM 4.8 mmol/L (3.5-5.1); TOTAL PROTEIN, SERUM 6.1 g/dL (6.4-8.2)
[2022-12-07 08:00] VITALS: BP 137/74
[2022-12-07] MEDS: PREGABALIN 25 MG CAPSULE PO SCH ×3 (08:28→16:07)
[2022-12-07] MEDS: CYCLOBENZAPRINE 10 MG TABLET PO SCH ×3 (08:28→16:07)
[2022-12-07] MEDS: ASPIRIN 81 MG TAB.CHEW PO SCH (08:29)
[2022-12-07] MEDS: METOPROLOL SUCCINATE 25 MG TAB.SR.24H PO SCH ×2 (08:29→21:35)
[2022-12-07] MEDS: hydrALAZINE HCL 50 MG TABLET PO SCH ×3 (08:29→16:08)
[2022-12-07] MEDS: NITROGLYCERIN 30 GM TUBE TP SCH ×2 (08:30→21:36)
[2022-12-07 12:00] VITALS: BP 162/100
[2022-12-07 16:00] VITALS: BP 135/81
[2022-12-07 20:00] VITALS: BP 146/78
[2022-12-07] MEDS ORDERED: DEXTROSE 50%-WATER 50 ML DISP.SYRIN IV PRN (20:30)
[2022-12-07] MEDS ORDERED: ONDANSETRON 4 MG TAB.RAPDIS SL PRN (21:30)
[2022-12-07] MEDS: ATORVASTATIN 40 MG TABLET PO SCH (21:34)
[2022-12-07] MEDS: BLOOD SUGAR DIAGNOSTIC 1 EACH STRIP VI SCH (21:36)
[2022-12-07] MEDS: *INSULIN REGULAR(HUMULIN R)HUM 100 UNIT/ML VIAL SQ PRN (22:13)
[2022-12-08] VITALS: BP 143/87
[2022-12-08 04:00] VITALS: BP 152/99
[2022-12-08] MEDS: INSULIN REGULAR, HUMAN 100 UNIT/ML 3 ML VIAL SQ PRN ×3 (06:11→17:34)
[2022-12-08 06:36] LABS: CALCIUM, SERUM 8.3 mg/dL (8.5-10.1); CREATININE 3.1 mg/dL (0.6-1.3); POTASSIUM 5.2 mmol/L (3.5-5.1)
[2022-12-08 06:43] LABS: BASOPHILS % (AUTO) 0.3 % (0.0-2.0); EOSINOPHILS % (AUTO) 5.1 % (0.0-6.0); HEMATOCRIT 27 % (39-51); HEMOGLOBIN 8.5 g/dL (13.5-17.5); LYMPHOCYTES # (AUTO) 1.3 K/uL (0.8-4.8); LYMPHOCYTES % (AUTO) 18.3 % (20.0-44.0); MEAN CORPUSCULAR HGB CONC 32 g/dl (31.0-36.0); MEAN CORPUSCULAR VOLUME 83 fL (80-96); MONOCYTES # (AUTO) 0.8 K/uL (0.1-1.30); MONOCYTES % (AUTO) 10.7 % (2.0-12.0); NEUTROPHILS # (AUTO) 4.8 K/uL (1.8-8.9); NEUTROPHILS % (AUTO) 65.6 % (43.0-81.0); PLATELET COUNT (AUTO) 360 K/uL (150-450); WHITE BLOOD COUNT (AUTO) 7.3 K/uL (4.3-11.0)
[2022-12-08] MEDS: BLOOD SUGAR DIAGNOSTIC 1 EACH STRIP VI SCH ×4 (06:48→21:13)
[2022-12-08 08:00] VITALS: BP 139/95
[2022-12-08] MEDS: CYCLOBENZAPRINE 10 MG TABLET PO SCH ×3 (08:24→17:32)
[2022-12-08] MEDS: PREGABALIN 25 MG CAPSULE PO SCH ×3 (08:24→17:33)
[2022-12-08] MEDS: METOPROLOL SUCCINATE 25 MG TAB.SR.24H PO SCH ×2 (08:25→20:42)
[2022-12-08] MEDS: hydrALAZINE HCL 50 MG TABLET PO SCH ×3 (08:25→17:33)
[2022-12-08] MEDS: ASPIRIN 81 MG TAB.CHEW PO SCH (08:25)
[2022-12-08] MEDS: NITROGLYCERIN 30 GM TUBE TP SCH ×2 (08:26→20:41)
[2022-12-08] MEDS ORDERED: SODIUM POLYSTYRENE SULFONATE 15 G/60 ML BOTTLE PO ONE (08:30)
[2022-12-08] MEDS: oxyCODONE/APAP (5/325 MG) 1 UDTAB TABLET PO PRN ×2 (08:35→17:42)
[2022-12-08] MEDS ORDERED: TRAMADOL HCL 50 MG TABLET PO PRN (13:30)
[2022-12-08 15:45] VITALS: BP 162/84
[2022-12-08 20:00] VITALS: BP 164/95
[2022-12-08] MEDS ORDERED: FUROSEMIDE 40 MG/4 ML VIAL IV ONE (21:00)
[2022-12-08] MEDS: ATORVASTATIN 40 MG TABLET PO SCH (21:09)
[2022-12-08] MEDS: *INSULIN REGULAR(HUMULIN R)HUM 100 UNIT/ML VIAL SQ PRN (21:14)
[2022-12-09] VITALS: BP 141/80
[2022-12-09 04:00] VITALS: BP 157/100
[2022-12-09 06:18] LABS: BASOPHILS % (AUTO) 0.3 % (0.0-2.0); EOSINOPHILS % (AUTO) 3.7 % (0.0-6.0); HEMATOCRIT 25 % (39-51); HEMOGLOBIN 8.1 g/dL (13.5-17.5); LYMPHOCYTES # (AUTO) 1.1 K/uL (0.8-4.8); LYMPHOCYTES % (AUTO) 14.2 % (20.0-44.0); MEAN CORPUSCULAR HGB CONC 32 g/dl (31.0-36.0); MEAN CORPUSCULAR VOLUME 83 fL (80-96); MONOCYTES # (AUTO) 0.7 K/uL (0.1-1.30); MONOCYTES % (AUTO) 9.5 % (2.0-12.0); NEUTROPHILS # (AUTO) 5.5 K/uL (1.8-8.9); NEUTROPHILS % (AUTO) 72.3 % (43.0-81.0); PLATELET COUNT (AUTO) 357 K/uL (150-450); RED BLOOD CELL COUNT(AUTO) 3.04 MIL/uL (4.5-6.0); WHITE BLOOD COUNT (AUTO) 7.6 K/uL (4.3-11.0)
[2022-12-09] MEDS: FUROSEMIDE 20 MG/2 ML VIAL IV SCH ×3 (06:30→09:00)
[2022-12-09] MEDS: BLOOD SUGAR DIAGNOSTIC 1 EACH STRIP VI SCH (06:32)
[2022-12-09] MEDS: *INSULIN REGULAR(HUMULIN R)HUM 100 UNIT/ML VIAL SQ PRN (06:33)
[2022-12-09] MEDS: oxyCODONE/APAP (5/325 MG) 1 UDTAB TABLET PO PRN (06:38)
[2022-12-09 07:10] LABS: POTASSIUM 4.9 mmol/L (3.5-5.1)
[2022-12-09 08:00] VITALS: BP 105/70
[2022-12-09 08:23] LABS: CALCIUM, SERUM 8.3 mg/dL (8.5-10.1)
[2022-12-09] MEDS: METOPROLOL SUCCINATE 25 MG TAB.SR.24H PO SCH (08:42)
[2022-12-09] MEDS: ASPIRIN 81 MG TAB.CHEW PO SCH (08:43)
[2022-12-09] MEDS: hydrALAZINE HCL 50 MG TABLET PO SCH (08:43)
[2022-12-09] MEDS: CYCLOBENZAPRINE 10 MG TABLET PO SCH (08:43)
[2022-12-09] MEDS: PREGABALIN 25 MG CAPSULE PO SCH (08:44)
[2022-12-09 08:46] VITALS: BP 105/70
[2022-12-09] MEDS: NITROGLYCERIN 30 GM TUBE TP SCH (08:46)
[2022-12-09 09:00] VITALS: BP 105/70
[2022-12-09] MEDS ORDERED: FUROSEMIDE 100 MG/10 ML VIAL IV ONE (09:00)
[2022-12-09] MEDS ORDERED: FURO-145 PO (10:11)
[2022-12-09] MEDS ORDERED: GLIP10TA11 PO (10:12)
[2022-12-09] MEDS ORDERED: FURO80TA85 PO (10:59)
== END 2022-12-09 11:00 | disposition home or self-care (01) | DRG 640 ==
LOC: ER 13:41 → TRANSITION 23:50 → TELE 12-06 08:10
PROVIDERS: ADMIT Internal Medicine; ATTEND Internal Medicine
DX: E87.70 Fluid overload, unspecified (principal); N17.0 Acute kidney failure with tubular necrosis; E11.22 Type 2 diabetes mellitus with diabetic chronic kidney disease; Z20.822 Contact with and (suspected) exposure to COVID-19; N18.9 Chronic kidney disease, unspecified; E11.40 Type 2 diabetes mellitus with diabetic neuropathy, unspecified; G89.29 Other chronic pain; Z98.1 Arthrodesis status; Z98.890 Other specified postprocedural states; Z79.899 Other long term (current) drug therapy; Z79.82 Long term (current) use of aspirin; Z79.84 Long term (current) use of oral hypoglycemic drugs; E87.5 Hyperkalemia; E66.01 Morbid (severe) obesity due to excess calories; D63.8 Anemia in other chronic diseases classified elsewhere; G47.33 Obstructive sleep apnea (adult) (pediatric); E11.51 Type 2 diabetes mellitus with diabetic peripheral angiopathy without gangrene; E78.5 Hyperlipidemia, unspecified; F17.200 Nicotine dependence, unspecified, uncomplicated; Z83.3 Family history of diabetes mellitus; I12.9 Hypertensive chronic kidney disease with stage 1 through stage 4 chronic kidney disease, or unspecified chronic kidney disease
CPT/HCPCS: 36415; 71045-TC; 76700-TC; 80048-TC; 80053-TC; 80076-TC; 81001; 82962-TC; 83690-TC; 83735-TC; 83880; 84100-TC; 84484-TC; 85025-TC; 87081-TC; 87086-TC; 93307-TC; 93970-TC; 94799-TC; C9803; G0378; J0360; J1815; J1940; J2405

== ENCOUNTER 2022-12-19 09:44 | Inpatient (IN) | payer MEDICARE, OTHER ==
[~2022-12-19] VITALS: Ht 188 cm; Wt 137.0 kg
[~2022-12-19 09:44] MED LIST changes: -CEPH-570 PO; +FURO80TA85 PO; +GLIP10TA11 PO; -GLIP1TAB6 PO; -IBUP-1957 PO; +NALO4SPR; -NALO4SPR NS; -SULF1TAB48 PO
--- NOTE | 2022-12-19 09:55 | NUR ---
JAIRO RA39 from Home "SOB started last night got worse sats RA>90. Recently Dx CHF on Lasix. BS-62"
[2022-12-19] MEDS ORDERED: FUROSEMIDE 40 MG/4 ML VIAL ONE (10:27)
[2022-12-19] MEDS ORDERED: FUROSEMIDE 40 MG/4 ML VIAL IV ONE (10:30)
[2022-12-19 10:31] LABS: BASOPHILS % (AUTO) 0.2 % (0.0-2.0); EOSINOPHILS % (AUTO) 0.8 % (0.0-6.0); HEMATOCRIT 27 % (39-51); HEMOGLOBIN 8.5 g/dL (13.5-17.5); LYMPHOCYTES # (AUTO) 0.9 K/uL (0.8-4.8); LYMPHOCYTES % (AUTO) 8.3 % (20.0-44.0); MEAN CORPUSCULAR HGB CONC 32 g/dl (31.0-36.0); MEAN CORPUSCULAR VOLUME 82 fL (80-96); MONOCYTES # (AUTO) 0.8 K/uL (0.1-1.30); MONOCYTES % (AUTO) 7.2 % (2.0-12.0); NEUTROPHILS # (AUTO) 9.3 K/uL (1.8-8.9); NEUTROPHILS % (AUTO) 83.5 % (43.0-81.0); PLATELET COUNT (AUTO) 487 K/uL (150-450); WHITE BLOOD COUNT (AUTO) 11.2 K/uL (4.3-11.0)
[2022-12-19 10:52] LABS: ALANINE AMINOTRANSFERASE 25 U/L (12-78); ALBUMIN 1.9 g/dL (3.4-5.0); ALKALINE PHOSPHATASE 176 U/L (46-116); ASPARTATE AMINOTRANSFERASE 38 U/L (15-37); BILIRUBIN,DIRECT 0.1 mg/dL (0.0-0.2); BILIRUBIN,TOTAL 0.2 mg/dL (0.2-1.0); CALCIUM, SERUM 8.1 mg/dL (8.5-10.1); CARBON DIOXIDE 24 mmol/L (21-32); CHLORIDE 105 mmol/L (98-107); CREATININE 4.5 mg/dL (0.6-1.3); POTASSIUM 4.9 mmol/L (3.5-5.1); SODIUM SERUM 138 mmol/L (136-145); TOTAL PROTEIN, SERUM 6.6 g/dL (6.4-8.2); UREA NITROGEN, BLOOD 62 mg/dL (7-18)
[2022-12-19] MEDS ORDERED: DEXTROSE 50%-WATER 50 ML DISP.SYRIN ONE (10:55)
[2022-12-19] MEDS ORDERED: DEXTROSE 50%-WATER 50 ML DISP.SYRIN IVP ONE (11:00)
[2022-12-19 11:03] LABS: GLUCOSE 44 mg/dL (74-106)
[2022-12-19] MEDS ORDERED: IBUP-1957 PO (11:25)
[2022-12-19] MEDS ORDERED: FURO80TA3 PO (11:25)
[2022-12-19] MEDS ORDERED: RAMI10CA69 PO (11:25)
[2022-12-19] MEDS ORDERED: INSU100I24 SQ (11:29)
--- NOTE | 2022-12-19 11:30 | NUR ---
covid swab taken
--- NOTE | 2022-12-19 11:35 | NUR ---
MOVE SHEET SUBMITTED.
--- NOTE | 2022-12-19 12:25 | NUR ---
RESULTS RELAYED BY SALE PROFESSIONAL DIGITAL MARKETING, PATIENT COVID POSITIVE, MADE MD AWARE
[2022-12-19] MEDS ORDERED: MAG HYDROX/AL HYDROX/SIMETH 30 ML UDC PO PRN (12:30)
[2022-12-19] MEDS ORDERED: Z GUARD REMEDY 4 OZ OINT TP PRN (12:30)
[2022-12-19] MEDS ORDERED: ONDANSETRON HCL/PF 4 MG/2 ML VIAL IVP PRN (12:30)
[2022-12-19] MEDS ORDERED: ACETAMINOPHEN 325 MG TABLET PO PRN (12:30)
[2022-12-19] MEDS ORDERED: MAGNESIUM HYDROXIDE 30 ML UDC PO PRN (12:30)
--- NOTE | 2022-12-19 13:27 | NUR ---
ROOM ASSIGNED. 103, ADMITTING AWARE
[2022-12-19] MEDS ORDERED: HEPARIN INFUSION/D5W 500 ML IV PRN (13:30)
[2022-12-19 13:54] LABS: BILIRUBIN,URINE NEGATIVE (NEGATIVE); COLOR,URINE YELLOW (YELLOW); LEUKOCYTE ESTERASE ,URINE NEGATIVE (NEGATIVE); NITRITE, URINE NEGATIVE (NEGATIVE); PROTEIN,URINE 3+ mg/dl (NEGATIVE); UGLUCOSE NEGATIVE (NEGATIVE); UROBILINOGEN,URINE 0.2 EU/dL (0.2)
--- NOTE | 2022-12-19 14:17 | NUR ---
REPORT GIVEN TO NIKHIL FOX. PT AWAITING TRANSFER TO FLOOR.
[2022-12-19 14:25] LABS: BACTERIA,URINE Few /HPF (None Seen); RBC,URINE 0-2 /HPF (0-2); SQUAMOUS EPITHELIAL CELL,UR Moderate /HPF (None Seen); URINE AMORPHOUS PHOSPHATES Many /HPF (None Seen); WBC,URINE 0-2 /HPF (0-3)
--- NOTE | 2022-12-19 14:55 | NUR ---
Patient transported to [facility], all care endorsed to RUDDY Womack
--- NOTE | 2022-12-19 14:57 | NUR ---
patient moved to assigned inpatient room safely
[2022-12-19] MEDS ORDERED: AZITHROMYCIN 500 MG in IV D5W 250 ML IV SCH (15:00)
--- NOTE | 2022-12-19 15:00 | NUR ---
PATIENT ADMITTED TO THE UNIT. SEVERE SOB, ON O2 VIA NC 3-4 L, VITALS STABLE, NO FEVER. COVID POSITIVE, CONTACT AND DROPLET PRECAUTIONS IMPLEMENTED, IV ACCESS LEFT AC FLUSHES WELL. COMFORT PT IN ROOM, SAFETY MEASURES IMPLEMENTED, CALL LIGHT WITHIN REACH.
[2022-12-19] MEDS ORDERED: HEPARIN SODIUM, PORCINE 5000 UNITS/1 ML VIAL IV ONE (16:00)
[2022-12-19] MEDS: CYCLOBENZAPRINE 10 MG TABLET PO SCH ×2 (16:58→21:51)
[2022-12-19] MEDS: CEFTRIAXONE 1 G in IV D5W 50 ML IV SCH (16:58)
[2022-12-19] MEDS: DEXAMETHASONE SOD PHOSPHATE 10 MG/ML VIAL IV SCH (17:46)
[2022-12-19] MEDS: HYDROCODONE/APAP 10/325MG TABLET PO PRN (18:07)
[2022-12-19] MEDS ORDERED: DEXTROSE 50%-WATER 50 ML DISP.SYRIN IV PRN (18:30)
--- NOTE | 2022-12-19 19:00 | NUR ---
SUPERINTENDENT CONTAINER TERMINAL OPENING NOTE RECEIVED PT. UP IN CHAIR, ALERT/AWAKEX3. NO C/O PAIN OR DISCOMFORT AT THIS TIME. PT ON 4LPM VIA NC, BREATHING LABORED, O2 SAT 96%. PT CURRENTLY RECEIVING HEPARIN DRIP 1800U/HR (36ML/HR) STARTED BY MORNING NURSE, RN UNABLE TO SCAN HEPARIN ON EMAR. NO S/SX OF ACTIVE BLEEDING NOTED. IV ACCESS ON LAC #22, PATENT AND FLUSHES WELL. PT INSISTS ON STAYING UP ON CHAIR. FALL PRECAUTIONS OBSERVED AT ALL TIMES. ISO PRECATIONS IMPLEMENTED. CALL LIGHT WITHIN EASY REACH. WILL CONT TO OBSERVE PT CLOSELY.
[2022-12-19 19:07] VITALS: BP 138/78
--- NOTE | 2022-12-19 19:25 | NUR ---
RN CLOSING NOTE PATIENT IS IN ROOM, SITTING IN A CHAIR, STATING THAT IS EASIER TO BREATH WHEN SITED UPRIGHT. PT STARTED ON HEPARIN, IV PUSH THEN DRIP 1800 UNITS AT 19:00, WILL BE TITRATED IN 6 HOURS AT 1AM. SAFETY MEASURES IMPLEMENTED, CALL LIGHT WITHIN REACH, WILL ENDORSE TO THE NIGHT NURSE.
[2022-12-19 20:00] VITALS: BP 143/86
[2022-12-19] MEDS: HEPARIN INFUSION/D5W 500 ML IV PRN (20:51)
--- NOTE | 2022-12-19 21:50 | NUR ---
RETAIL CUSTODIAL ASSOCIATE NOTE PT BP= 182/98, PT CURRENTLY ON HEPARIN DRIP, NO DUE ANTI-HTN MEDS AT THIS TIME, EMILIA DUARTE NOTIFIED WITH NEW ORDER OF HYDRAZALINE 10MG Q4 NEEDED FOR SBP>160.
[2022-12-19] MEDS: ATORVASTATIN 40 MG TABLET PO SCH (21:51)
[2022-12-19] MEDS: hydrALAZINE HCL IV 20 MG VIAL IV PRN (21:52)
[2022-12-19] MEDS: *INSULIN REGULAR(HUMULIN R)HUM 100 UNIT/ML VIAL SQ PRN (23:23)
[2022-12-19] MEDS: BLOOD SUGAR DIAGNOSTIC 1 EACH STRIP VI SCH (23:23)
[2022-12-20] VITALS: BP 154/82
--- NOTE | 2022-12-20 02:00 | NUR ---
RUG SETTER AXMINSTER NOTE PTT RESULT 52.4, MD EMILIA PURCELL NOTIFIED WITH ORDER TO CONT CURRENT DOSE OF HEPARIN DRIP 1800U/HR (36ML/HR). NO ACTIVE BLEEDING NOTED AT THIS TIME.
[2022-12-20] MEDS: hydrALAZINE HCL IV 20 MG VIAL IV PRN (02:50)
[2022-12-20 06:00] VITALS: BP 144/95
[2022-12-20 07:07] LABS: BASOPHILS % (AUTO) 0.1 % (0.0-2.0); EOSINOPHILS % (AUTO) 0.1 % (0.0-6.0); HEMATOCRIT 27 % (39-51); HEMOGLOBIN 8.7 g/dL (13.5-17.5); LYMPHOCYTES % (AUTO) 9.1 % (20.0-44.0); MEAN CORPUSCULAR HGB CONC 32 g/dl (31.0-36.0); MEAN CORPUSCULAR VOLUME 81 fL (80-96); MONOCYTES # (AUTO) 0.7 K/uL (0.1-1.30); MONOCYTES % (AUTO) 5.9 % (2.0-12.0); NEUTROPHILS # (AUTO) 9.6 K/uL (1.8-8.9); NEUTROPHILS % (AUTO) 84.8 % (43.0-81.0); PLATELET COUNT (AUTO) 546 K/uL (150-450); RED BLOOD CELL COUNT(AUTO) 3.29 MIL/uL (4.5-6.0); WHITE BLOOD COUNT (AUTO) 11.3 K/uL (4.3-11.0)
--- NOTE | 2022-12-20 07:15 | NUR ---
GORE INSERTER CLOSING NOTE PT AWAKE, ALERT AND ORIENTED. VERBALLY RESPONSIVE. PT REMAINS ON 4LPM VIA NC, BREATHING LABORED, O2 SAT 96%. GENERALIZED BODY TWITCHING NOTED. REMAINS ON HEPARIN DRIP AT 1800U/HR, NO ASE NOTED, LAC IV ACCESS PATENT, FLUSHES WELL. PT AMB WITH ASSIST. ALL NEEDS ATTENDED. SAFETY PRECAUTIONS OBSERVED AT ALL TIMES ISOLATION PRECAUTIONS OBSERVED AT ALL TIMES. WILL ENDORSE TO AM SHIFT.
--- NOTE | 2022-12-20 07:25 | NUR ---
BYPRODUCTS MAKER OPENING NOTE RECEIVED PT. UP IN CHAIR, ALERT/AWAKEX3. NO C/O PAIN OR DISCOMFORT AT THIS TIME. PT ON 4LPM VIA NC, BREATHING LABORED, O2 SAT 96%. PT CURRENTLY RECEIVING HEPARIN DRIP 1800U/HR (36ML/HR). NO S/SX OF ACTIVE BLEEDING NOTED. IV ACCESS ON LAC #22, PATENT AND FLUSHES WELL. PT INSISTS ON STAYING UP ON CHAIR. FALL PRECAUTIONS OBSERVED AT ALL TIMES. ISO PRECATIONS IMPLEMENTED. CALL LIGHT WITHIN EASY REACH. WILL CONT TO OBSERVE PT CLOSELY.
[2022-12-20 07:46] LABS: ALBUMIN 1.9 g/dL (3.4-5.0); CALCIUM, SERUM 8.5 mg/dL (8.5-10.1); CREATININE 4.5 mg/dL (0.6-1.3); POTASSIUM 5.3 mmol/L (3.5-5.1)
[2022-12-20] MEDS: BLOOD SUGAR DIAGNOSTIC 1 EACH STRIP VI SCH ×4 (07:52→22:09)
[2022-12-20 07:57] LABS: BILIRUBIN,TOTAL 0.2 mg/dL (0.2-1.0); MAGNESIUM 2.2 mg/dL (1.8-2.4); PHOSPHORUS 6.9 mg/dL (2.5-4.9); TOTAL PROTEIN, SERUM 6.8 g/dL (6.4-8.2)
[2022-12-20 08:00] VITALS: BP 143/88
[2022-12-20] MEDS ORDERED: HEPARIN-LOCK FLUSH PORCINE PF 100 UNITS/1 ML (10 ML)DISP.SYRIN IVF ONE (08:30)
[2022-12-20] MEDS ORDERED: BUMETANIDE INJ 8 MG in IV NS 0.9% 48 ML IV ONE (08:30)
[2022-12-20] MEDS: DEXAMETHASONE SOD PHOSPHATE 10 MG/ML VIAL IV SCH (08:34)
[2022-12-20] MEDS: CYCLOBENZAPRINE 10 MG TABLET PO SCH ×4 (08:34→21:44)
[2022-12-20] MEDS: PANTOPRAZOLE 40 MG VIAL IV SCH (08:34)
[2022-12-20] MEDS: METOPROLOL SUCCINATE 50 MG TAB.SR.24H PO SCH (08:35)
[2022-12-20] MEDS: ASPIRIN 81 MG TAB.CHEW PO SCH (08:35)
[2022-12-20] MEDS ORDERED: HEPARIN SODIUM,PORCINE/PF 50 UNIT/5 ML DISP.SYRIN IV ONE ×2 (08:45→08:55)
[2022-12-20] MEDS ORDERED: HEPARIN SODIUM, PORCINE 5000 UNITS/1 ML VIAL IV ONE (09:10)
[2022-12-20] MEDS: PREGABALIN 100 MG CAPSULE PO SCH ×3 (09:51→16:30)
[2022-12-20] MEDS: HEPARIN INFUSION/D5W 500 ML IV PRN (10:50)
[2022-12-20 12:00] VITALS: BP 164/90
[2022-12-20] MEDS: AZITHROMYCIN 250 MG TABLET PO SCH (12:46)
[2022-12-20] MEDS: INSULIN REGULAR, HUMAN 100 UNIT/ML 3 ML VIAL SQ PRN ×2 (12:46→17:35)
[2022-12-20 13:36] LABS: ABG BASE EXCESS -6.9 mmol/L; ABG PH 7.303 (7.350-7.450); COHb 0.3 % (0.5-1.5); MetHb 0.2 % (0.0-1.5); O2Hb 97.3 % (94.0-97.0); SITE, ABG Left Radial; VENT MODE, BG 4 L NC
--- NOTE | 2022-12-20 13:45 | NUR ---
RN NOTES: RELAYED ABG TO [facility] ANIMAL CARE VETERINARIAN MADE AWARE WITH NO NEW ORDER
[2022-12-20] MEDS: APIXABAN 5 MG TABLET PO SCH ×2 (14:29→16:31)
[2022-12-20 16:00] VITALS: BP 157/92
--- NOTE | 2022-12-20 16:00 | NUR ---
RN notes: received a call from the lab ptt is 84.0 heparin drip was discontinued at 1310, notified Nika Lawson with no new order.
[2022-12-20] MEDS: CEFTRIAXONE 1 G in IV D5W 50 ML IV SCH (16:30)
--- NOTE | 2022-12-20 19:10 | NUR ---
RN CLOSING NOTE PATIENT in bed asleep, on O2 4 liter via nasal cannula,noted with sob with mild exertion, also he is confused .HEAD DOFFER Nika aware MEASURES IMPLEMENTED, CALL LIGHT WITHIN REACH, WILL ENDORSE TO THE NIGHT NURSE.
[2022-12-20 20:00] VITALS: BP 132/64
[2022-12-20] MEDS: ATORVASTATIN 40 MG TABLET PO SCH (21:44)
[2022-12-20] MEDS: *INSULIN REGULAR(HUMULIN R)HUM 100 UNIT/ML VIAL SQ PRN (22:11)
--- NOTE | 2022-12-20 22:12 | NUR ---
RN NOTES: BLOOD SUAGR 175. 3 UNITS OF REGULAR INSULIN GIVEN. NO S/S OF HYPER/HYPOGLYCEMIA. WILL CONTINUE TO MONITOR
[2022-12-21] VITALS (15 sets, daily range): BP systolic 100–178; BP diastolic 41–97
[2022-12-21] MEDS ORDERED: LORAZEPAM INJ 2 MG/ML VIAL IM ONE (02:30)
--- NOTE | 2022-12-21 02:32 | NUR ---
RN NOTES: PT BECAME VERY AGITATED/AGGRESSIVE, GOT OUT FROM ROOM 103, PULLED OUT THE CALL LIGHT FROM THE WALL AND WENT TO ROOM 104. TRIED TO BREAK THE WINDOW WITH IV POLE. WHEN NURSING STAFFS TRIED TO STOP HIM, ALSO TRIED TO HIT THE NURSING STAFF MEMBERS AND SECURITY GUARDS WITH THE POLE. CODE GREWAL ACTIVATED. NURSING WOMENS HEALTH NURSE PRACTITIONER CAME TO UNIT. STILL NURSING STAFFS TRIED TO LET HIM SIT ON THE BED, TRIED TO APPLY OXYGEN BUT HE CONSTANTLY REFUSED AND BECAME VERY AGGRESSIVE. NOTIFIED SUSAN AVENDAÑO. ORDER ATIVAN 2MG/1ML IM ONCE. ORDER NOTED AND CARRIED OUT.
--- NOTE | 2022-12-21 02:34 | NUR ---
RN NOTES: ATIVAN 2MG/1 ML IM GIVEN AND PT TOLERATED WELL WILL CONTINUE TO MONITOR
--- NOTE | 2022-12-21 02:35 | NUR ---
0235 Called patient's daughter Geri and notified her of patient's behavior, she said she will call her father on his cell phone.
--- NOTE | 2022-12-21 02:50 | NUR ---
0250 Patient's daughter at bedside convincing patient to put oxygen back on and to go back to bed, but patient keeps refusing. Cont. to reiterate to patient the risks of his refusal to put oxygen on including but to no avail. Patient being closely monitored.
--- NOTE | 2022-12-21 03:00 | NUR ---
0300 Able to assist patient back to bed and oxygen was put back on. O2 saturation noted at 93-94%. No respiratory distress noted. Daughter remains at bedside in PPE for safety.
--- NOTE | 2022-12-21 05:01 | NUR ---
RN NOTES: PT IS SLEEPING AT THIS MOMENT. RECEIVED ORDER FOR 1 :1 SITTER. ORDER NOTED AND CARRIED OUT.
[2022-12-21 06:46] LABS: BASOPHILS % (AUTO) 0.2 % (0.0-2.0); EOSINOPHILS % (AUTO) 0.7 % (0.0-6.0); HEMATOCRIT 26 % (39-51); HEMOGLOBIN 8.4 g/dL (13.5-17.5); LYMPHOCYTES # (AUTO) 1.2 K/uL (0.8-4.8); MEAN CORPUSCULAR HGB CONC 32 g/dl (31.0-36.0); MEAN CORPUSCULAR VOLUME 82 fL (80-96); MONOCYTES % (AUTO) 8.8 % (2.0-12.0); NEUTROPHILS # (AUTO) 8.9 K/uL (1.8-8.9); NEUTROPHILS % (AUTO) 79.3 % (43.0-81.0); PLATELET COUNT (AUTO) 524 K/uL (150-450); RED BLOOD CELL COUNT(AUTO) 3.17 MIL/uL (4.5-6.0); WHITE BLOOD COUNT (AUTO) 11.3 K/uL (4.3-11.0)
[2022-12-21 07:03] LABS: ALBUMIN 1.8 g/dL (3.4-5.0); BILIRUBIN,TOTAL 0.2 mg/dL (0.2-1.0); CALCIUM, SERUM 8.3 mg/dL (8.5-10.1); MAGNESIUM 2.4 mg/dL (1.8-2.4); POTASSIUM 5.4 mmol/L (3.5-5.1); TOTAL PROTEIN, SERUM 6.6 g/dL (6.4-8.2)
[2022-12-21 07:16] LABS: PHOSPHORUS 8.5 mg/dL (2.5-4.9)
--- NOTE | 2022-12-21 07:30 | NUR ---
OPENING NOTE PATIENT RECEIVED IN BED RESTING COMFORTABLY, NO SIGNS OF IN DISTRESS, SPO2-98% VIA N/C ON 4L/MIN. VITAL SIGNS ARE STABLE, BED IN LOW POSITION, CALL LIGHT WITHIN REACH, 1:1 MONITORING D/T AGITATION, WILL F/U WITH FUEL CELL DESIGNER REGARDING K-5.4, CREATININE-5.0, MAYBE NEED DIALYSIS.
[2022-12-21] MEDS: BLOOD SUGAR DIAGNOSTIC 1 EACH STRIP VI SCH ×4 (07:39→23:36)
[2022-12-21] MEDS: DEXAMETHASONE SOD PHOSPHATE 10 MG/ML VIAL IV SCH (08:11)
[2022-12-21] MEDS: PANTOPRAZOLE 40 MG VIAL IV SCH (08:11)
[2022-12-21] MEDS: METOPROLOL SUCCINATE 50 MG TAB.SR.24H PO SCH (08:20)
--- NOTE | 2022-12-21 08:54 | NUR ---
DR NAJERA ORDERED STAT ABG
[2022-12-21] MEDS: ASPIRIN 81 MG TAB.CHEW PO SCH (09:00)
[2022-12-21] MEDS: CYCLOBENZAPRINE 10 MG TABLET PO SCH ×4 (09:00→20:54)
[2022-12-21] MEDS: PREGABALIN 100 MG CAPSULE PO SCH ×3 (09:00→16:51)
[2022-12-21] MEDS: AZITHROMYCIN 250 MG TABLET PO SCH (09:00)
[2022-12-21 09:15] LABS: ABG BASE EXCESS -8.4 mmol/L; ABG OXYGEN SATURATION 96.4 % (92.0-98.5); ABG PCO2 54.6 mmHg (35.0-45.0); ABG PH 7.178 (7.350-7.450); ABG PO2 103.1 mmHg (75.0-100.0); AaDO2 90.2 mmHg; COHb 0.2 % (0.5-1.5); MetHb 0.2 % (0.0-1.5); SITE, ABG Left Radial; VENT MODE, BG 4 LPM NC
--- NOTE | 2022-12-21 09:25 | NUR ---
DR NAJERA ORDERED PATIENT WILL GO TO ICU WITH HIGH FLOW BIPAP, NURSING OPERATIONS ADVISOR AND CHARGE NURSE INFORMED. @0945, PATIENT ARRIVED IN ICU 256, REPORT GIVEN TO ADRIEL FOX,
--- NOTE | 2022-12-21 09:45 | NUR ---
RN NOTE PT RECEIVED FROM [facility] REPORT RECEIVED FROM RUDDY GOYAL.
[2022-12-21 12:08] LABS: ABG OXYGEN SATURATION 96.6 % (92.0-98.5); ABG PCO2 43.4 mmHg (35.0-45.0); ABG PH 7.216 (7.350-7.450); ABG PO2 96.9 mmHg (75.0-100.0); COHb 0.5 % (0.5-1.5); MetHb 0.1 % (0.0-1.5); SITE, ABG Left Radial; VENT MODE, BG 20/10 RR12 30%
[2022-12-21] MEDS: *INSULIN REGULAR(HUMULIN R)HUM 100 UNIT/ML VIAL SQ PRN (12:40)
[2022-12-21] MEDS ORDERED: OLANZAPINE 10 MG VIAL IM PRN (14:00)
--- NOTE | 2022-12-21 15:30 | NUR ---
RN NOTE PT IS CURRENTLY ON BI LATERAL SOFT WRIST RESTRAINTS AND CONTINUES TO FREE HIMSELF AND NOT FOLLOW COMMANDS.
[2022-12-21] MEDS: CEFTRIAXONE 1 G in IV D5W 50 ML IV SCH (15:48)
[2022-12-21] MEDS ORDERED: IV NS 0.9% 250 ML IV PRN (16:00)
[2022-12-21] MEDS: APIXABAN 5 MG TABLET PO SCH (16:50)
--- NOTE | 2022-12-21 18:15 | NUR ---
RN NOTE PT CONTINUES TO BE PHYSICALLY AGGRESSIVE AND BROKE BILATERAL WRIST RESTRAINTS
--- NOTE | 2022-12-21 19:13 | NUR ---
RN CLOSING NOTE PT IS SITTING UP IN BED AND CONTINUES TO TAKE OFF BIPAP; REDIRECTIONS UNSUCCESSFUL AND WILL WEAR THE BIPAP AND THEN TAKE IT OFF. PT IS NPO AT THIS TIME AND IS CONFUSED AND PHYSICALLY AGGRESSIVE AND CONTINUES TO BREAK BI LATERAL SOFT WRIST RESTRAINTS. PT PULLED OUT L AC IV ACCESS; MIDLINE HAS BEEN ORDERED. BED IS LOCKED IN LOWEST POSITION X2 BED RAILS UP AND ALL HOSPITAL SAFETY MEASURES ARE IN PLACE WILL ENDORSE TO SENIOR PROGRAM ANALYST FOR CITLALI.
--- NOTE | 2022-12-21 19:40 | NUR ---
ICU/RN: PT NONCOMPLIANT WITH TELE MONITORING, SPO2 MONITORING AND BIPAP. PT EDUCATED ON POLICY AND PROCEDURE. PT UNINTERESTED IN TEACHING AND NOT AGREEABLE. NO IV SITE AT THIS TIME PT KEEPS PULLING THEM OUT. SITTER MONITORING THE PT FOR PT SAFETY. WILL CONTINUE WITH PLAN OF CARE.
--- NOTE | 2022-12-21 19:50 | NUR ---
ICU/RN: PORTFOLIO ACCOUNTANT GEOFF TRIED PLACING IV LINE ON PT. PT BECAME VERBALLY AGGRESSIVE TOWARDS HER. SHE STOPPED PROCEDURE. PT EDUCATED ON NEED FOR IV PLACEMENT PT DISENGAGED AND UNINTERESTED IN PT EDUCATION.
[2022-12-21] MEDS: ATORVASTATIN 40 MG TABLET PO SCH (21:19)
--- NOTE | 2022-12-21 22:24 | NUR ---
RT Pt continuously removing BIPAP mask throughout shift. Pt combative and not cooperating. Pt placed on NC pending HFNC standby order, but pt also removing cannula. RN aware. During BIPAP removal Sp02 between 82%-89%. Able to place pt back on BIPAP mask at this time. Will continue to monitor.
--- NOTE | 2022-12-21 22:25 | NUR ---
ICU/RN: PT BECAME EXTREMELY AGGRESSIVE REMOVED ALL MONITORING EQUIPMENT. THREW HIS BIPAP ACROSS THE ROOM AND WAS TRYING TO TEAR THE MONITOR OFF THE WALL WITH THE CABLES AND DAMAGE HOSPITAL PROPERTY. PT HAD TO BE BEHAVIORALLY RESTRAINED. FACE TO FACE WILL BE PERFORMED BY DANIELLE PAUL. WILL CONTINUE WITH PLAN OF CARE. SITTER OBSERVING PT Q15 MIN CHECKS.
[2022-12-22] VITALS (60 sets, daily range): BP systolic 131–219; BP diastolic 36–176
[2022-12-22] MEDS ORDERED: LIDOCAINE 2% JEL UROJET 10 ML MM ONE (01:30)
[2022-12-22] MEDS ORDERED: FUROSEMIDE 100 MG/10 ML VIAL IV ONE (01:30)
--- NOTE | 2022-12-22 01:45 | NUR ---
ICU/RN: FIRE OBSERVER GEOFF PLACED TWO IV LINES. LEFT THUMB #22 AND RIGHT HAND #22. SHE ALSO PLACED COUDE CATH. DR. CUEVAS GAVE ORDER FOR 120MG LASIX IVP TIMES ONE. ADMINISTERED ORDERED.
--- NOTE | 2022-12-22 04:23 | NUR ---
ICU/RN: CAPTURE MANAGER SAYS SHE CANT FIND A VEIN TO DRAW BLOOD. WILL SEND ANOTHER CAPTURE MANAGER.
[2022-12-22 04:58] LABS: BASOPHILS % (AUTO) 0.3 % (0.0-2.0); EOSINOPHILS % (AUTO) 0.7 % (0.0-6.0); HEMATOCRIT 23 % (39-51); HEMOGLOBIN 7.4 g/dL (13.5-17.5); LYMPHOCYTES % (AUTO) 12.4 % (20.0-44.0); MEAN CORPUSCULAR HGB CONC 33 g/dl (31.0-36.0); MEAN CORPUSCULAR VOLUME 80 fL (80-96); MONOCYTES # (AUTO) 0.7 K/uL (0.1-1.30); MONOCYTES % (AUTO) 7.9 % (2.0-12.0); NEUTROPHILS # (AUTO) 6.5 K/uL (1.8-8.9); NEUTROPHILS % (AUTO) 78.7 % (43.0-81.0); PLATELET COUNT (AUTO) 456 K/uL (150-450); RED BLOOD CELL COUNT(AUTO) 2.81 MIL/uL (4.5-6.0); WHITE BLOOD COUNT (AUTO) 8.3 K/uL (4.3-11.0)
[2022-12-22 05:37] LABS: CALCIUM, SERUM 8.4 mg/dL (8.5-10.1); CREATININE 5.1 mg/dL (0.6-1.3); POTASSIUM 5.2 mmol/L (3.5-5.1)
[2022-12-22] MEDS: hydrALAZINE HCL IV 20 MG VIAL IV PRN ×3 (05:59→20:34)
--- NOTE | 2022-12-22 06:14 | NUR ---
ICU/RN: CRITICAL BUN 85 RESULTS RTELAYED TO CIERRA MCCORMICK. PT MEDICATED FOR HYPERTENSION PRESCRIBED.
--- NOTE | 2022-12-22 08:00 | NUR ---
RN NOTES RECEIVED PATIENT ON BIPAP, 20/10, FIO2-30%, PATIENT AWAKE, GET NEW ORDER TO CHANGE BIPAP TO THE NC PER Dr ANJERA. PATIENT ON HARD RESTRAIN, A/O X3, 1:1 SITTER NEXT TO THE BED, PATIENT ON HARD RESTRAIN. PATIENT STATE "I DO NOT REMEMBER NOTHING", AND WANTED RESTRAIN TO BE REMOVED. RELEASED RESTRAIN VIA DR GONZALEZ ORDER SKIN ASSESSMENT DONE. ADMINISTERED SCHEDULED MEDICATION. PATIENT WAS COMPLAINING OF LOWER BACK PAIN ASKING PAIN MEDICATION. REMOVED HARD RESTRAIN. PATIENT CALM AND COOPERATIVE WATCHING TV. CALL LIGHT WITHIN TO REACH. MONITORING CLOSELY. PATIENT HAS ISOLATION OF COVID.
[2022-12-22] MEDS: ASPIRIN 81 MG TAB.CHEW PO SCH (08:12)
[2022-12-22] MEDS: AZITHROMYCIN 250 MG TABLET PO SCH (08:12)
[2022-12-22] MEDS: METOPROLOL SUCCINATE 50 MG TAB.SR.24H PO SCH (08:13)
[2022-12-22] MEDS: PREGABALIN 100 MG CAPSULE PO SCH ×3 (08:13→17:17)
[2022-12-22] MEDS: CYCLOBENZAPRINE 10 MG TABLET PO SCH ×4 (08:13→21:43)
[2022-12-22] MEDS: DEXAMETHASONE SOD PHOSPHATE 10 MG/ML VIAL IV SCH (08:14)
[2022-12-22] MEDS: PANTOPRAZOLE 40 MG VIAL IV SCH (08:14)
[2022-12-22] MEDS: APIXABAN 5 MG TABLET PO SCH ×2 (08:16→17:18)
[2022-12-22] MEDS: BLOOD SUGAR DIAGNOSTIC 1 EACH STRIP VI SCH ×4 (08:19→22:36)
[2022-12-22] MEDS: HYDROCODONE/APAP 10/325MG TABLET PO PRN ×2 (08:42→17:17)
--- NOTE | 2022-12-22 08:42 | NUR ---
RN NOTES ADMINISTERED NARCO 10/325 MG PO PRN FOR LOWER BACK PAIN PER PAIENT REQUEST 07/07 PER PAIN SCALE. BP 177/88, P-86. R-11.
[2022-12-22 09:26] LABS: ABG BASE EXCESS -7.2 mmol/L; ABG OXYGEN SATURATION 86.1 % (92.0-98.5); ABG PCO2 45.9 mmHg (35.0-45.0); ABG PO2 58.4 mmHg (75.0-100.0); AaDO2 101.6 mmHg; COHb 0.9 % (0.5-1.5); MetHb 0.2 % (0.0-1.5); O2Hb 85.2 % (94.0-97.0); SITE, ABG Right Radial; VENT MODE, BG NASAL CANNULA
[2022-12-22] MEDS: INSULIN REGULAR, HUMAN 100 UNIT/ML 3 ML VIAL SQ PRN ×2 (13:45→17:40)
--- NOTE | 2022-12-22 13:48 | NUR ---
RN NOTES BP 166/109, P-71, ADMINISTERED HYDRALAZINE 10MG/ML IV PUSH, BS-207 MG/DL COVERAGE GIVEN, AND SCHEDULED MEDICATION. PATIENT CALM AND COOPERATIVE, NO BEHAVIORAL ISSUE, REDIRECTABLE. TOLERATING LUNCH SELF. WILL FOLLOW UP.
--- NOTE | 2022-12-22 17:17 | NUR ---
RN NOTES ADMINISTERED NARCO 10/325 MG PO PRN FOR LOWER BACK PAIN 07/07 PER PAIN SLIDING SCALE, PER PATIENT REQUEST. BS-281 MG/DL COVERAGE GIVEN. PATIENT EATING DINNER.
--- NOTE | 2022-12-22 18:20 | NUR ---
RN NOTES PATIENT ON NC-3L, NO ACUTE RESPIRATORY DISTRESS, MEDICATION WERE ADMINISTERED FOR PAIN EFFECTIVE, TOLERATED DINNER WELL CALL LIGHT WITHIN TO REACH. URINE OUTPUT WAS 1550ML. IV ACCESS MIDLINE ON RACHEL INTACT. ENDORSED ONCOMING NURSE CITLALI.
--- NOTE | 2022-12-22 19:35 | NUR ---
RN OPENING NOTES RECEIVED PATIENT ON BED, AWAKE ALERT, VERBALLY RESPONSIVE, CURRENTLY ON ROOM AIR SATING AT 91%, RESPIRATORY EVEN AND UNLABORED, NO S/S OF DISTRESS NOTED. PATIENT HAS ARCHEL MIDLINE, FLUSHED WITH NS, NO S/S OF INFILTRATION NOTED AT THIS TIME. DARLING CATHETER INTACT, DRAINING WITH CLEAR YELLOW URINE VIA GRAVITY, ALL SAFETY PRECAUTION PROVIDED. BED IN LOWEST POSITION, LOCKED. BED ALARM ARMED. CALL LIGHT WITH IN REACH.
--- NOTE | 2022-12-22 20:35 | NUR ---
RN NOTES NOTED WITH BP- 173/93, PULSE- 94, DENIES ANY H/A AND DIZZINESS, HYDRALAZINE 10 MG IV GIVEN.
--- NOTE | 2022-12-22 21:27 | NUR ---
PT REFUSED TO GO ON BIPAP. EXPLAINED THE BENEFIT OF THE MACHINE AND PT SAID HE'S OK HE DOES NOT WANT TO USE IT. RN NOTIFIED. WILL CONTINUE TO MONITOR.
[2022-12-22] MEDS: ATORVASTATIN 40 MG TABLET PO SCH (21:43)
[2022-12-22] MEDS: *INSULIN REGULAR(HUMULIN R)HUM 100 UNIT/ML VIAL SQ PRN (21:57)
--- NOTE | 2022-12-22 23:40 | NUR ---
RN NOTES REPORT GIVEN TO FERNANDO FOX FOR CONTINUITY OF CARE.
--- NOTE | 2022-12-22 23:45 | NUR ---
PROC TECH Received patient AA/OX3 on high fowlers position.VS stable.Respiration even and unlabored saturation 88%-93%.SR.Patient refused BIPAP.Patient denies pain or any discomfort.With bilateral leg swelling kept elevated on pillows.FC to gravity.Continue monitoring.
[2022-12-23] VITALS (18 sets, daily range): BP systolic 91–182; BP diastolic 62–98
[2022-12-23 03:57] LABS: BASOPHILS % (AUTO) 0.2 % (0.0-2.0); EOSINOPHILS % (AUTO) 0.2 % (0.0-6.0); HEMATOCRIT 23 % (39-51); HEMOGLOBIN 7.6 g/dL (13.5-17.5); LYMPHOCYTES # (AUTO) 0.8 K/uL (0.8-4.8); LYMPHOCYTES % (AUTO) 8.1 % (20.0-44.0); MEAN CORPUSCULAR HGB CONC 33 g/dl (31.0-36.0); MEAN CORPUSCULAR VOLUME 80 fL (80-96); MONOCYTES # (AUTO) 0.8 K/uL (0.1-1.30); MONOCYTES % (AUTO) 7.5 % (2.0-12.0); NEUTROPHILS # (AUTO) 8.7 K/uL (1.8-8.9); PLATELET COUNT (AUTO) 497 K/uL (150-450); RED BLOOD CELL COUNT(AUTO) 2.86 MIL/uL (4.5-6.0); WHITE BLOOD COUNT (AUTO) 10.4 K/uL (4.3-11.0)
[2022-12-23 04:04] LABS: CREATININE 4.9 mg/dL (0.6-1.3); POTASSIUM 5.2 mmol/L (3.5-5.1)
[2022-12-23] MEDS: hydrALAZINE HCL IV 20 MG VIAL IV PRN ×4 (04:45→22:03)
[2022-12-23] MEDS: HYDROCODONE/APAP 10/325MG TABLET PO PRN ×2 (04:58→17:04)
--- NOTE | 2022-12-23 05:00 | NUR ---
ICU NOTES Patient resting.BP elevated PRN medication administered Complaints of back pain medicated as ordered.Bed bath rendered.Complete lines changed.No acute distress noted.Kept comfortable. Safety measure implemented.Call light at bedside.
--- NOTE | 2022-12-23 07:30 | NUR ---
RN note Received patient in bed. Alert and conscious without active complaint. nuclear plant equipment operator showed SR HR 80/min. BP stable. Not in respiratory distress RA, RR 20/min. Call barrientos is placed within reach. Bed is locked and placed in the lowest position. Will continue monitoring and care.
[2022-12-23] MEDS: BLOOD SUGAR DIAGNOSTIC 1 EACH STRIP VI SCH ×4 (07:48→21:55)
[2022-12-23] MEDS: DEXAMETHASONE SOD PHOSPHATE 10 MG/ML VIAL IV SCH (08:03)
[2022-12-23] MEDS: PREGABALIN 100 MG CAPSULE PO SCH ×3 (08:03→17:15)
[2022-12-23] MEDS: ASPIRIN 81 MG TAB.CHEW PO SCH (08:03)
[2022-12-23] MEDS: PANTOPRAZOLE 40 MG VIAL IV SCH (08:03)
[2022-12-23] MEDS: METOPROLOL SUCCINATE 50 MG TAB.SR.24H PO SCH (08:04)
[2022-12-23] MEDS: APIXABAN 5 MG TABLET PO SCH ×2 (08:05→17:15)
[2022-12-23] MEDS: CYCLOBENZAPRINE 10 MG TABLET PO SCH ×4 (08:06→21:22)
[2022-12-23] MEDS: INSULIN REGULAR, HUMAN 100 UNIT/ML 3 ML VIAL SQ PRN ×3 (08:29→17:36)
[2022-12-23 09:56] LABS: ABG OXYGEN SATURATION 91.5 % (92.0-98.5); ABG PCO2 39.8 mmHg (35.0-45.0); ABG PO2 70.9 mmHg (75.0-100.0); AaDO2 31.2 mmHg; COHb 0.4 % (0.5-1.5); MetHb 0.2 % (0.0-1.5); SITE, ABG Right Radial; VENT MODE, BG ROOM AIR
[2022-12-23] MEDS: SODIUM POLYSTYRENE SULF. PWD 15 GM UDC PO SCH (10:21)
[2022-12-23] MEDS ORDERED: BUMETANIDE INJ 16 MG in IV NS 0.9% 16 ML IV ONE (10:30)
--- NOTE | 2022-12-23 10:59 | NUR ---
RN note - transfer to telemetry After assessment of ABG, Dr. olvera said that patient is safe to be transferred to Telemetry. playground monitor showed SR HR 80/min. BP stable. Spo2 93% RA, RR~20/min. Butex has been commenced for his heart failure at 10mL/hr, given via middline. Moore collected 500mL yellowish fluid this morning. 3+ pitting edema noted over bilateral LL. Patient is not in respiratory distress. K 5.2mmol/L, with sodium polystyrene 15g given. Keep observation of urine output and SHELLY. Patient is transferred to [facility] bed 103. Handover is given to RUDDY Wise.
--- NOTE | 2022-12-23 11:00 | NUR ---
RN NOTE RECEIVED PATIENT FROM ICU ACCOMPANIED BY RUDDY BENSON, AND RUDDY MORAN. RECEIVED BEDSIDE REPORT. PATIENT A/OX4. VS: ORAL TEMP 98.0; RR: 22; HR 76; OS SAT 95% ON ROOM AIR; BP: 161/91. DARLING CATHETER IN PLACE DRAINING VIA GRAVITY AYAN URINE. RACHEL MIDLINE RUNNING BUMEX AT 10ML/ HR. ALL SAFETY MEASURES IN PLACE, BED LOCKED IN LOWEST POSITION, WILL CONTINUE TO MONITOR.
--- NOTE | 2022-12-23 16:37 | NUR ---
RN NOTE CONFISCATED CIGARETTES AND SOCIAL MEDIA INTERN FROM PATIENT. KEPT IN PERSONAL BELONGINGS BAG IN NURSES STATION. CHARGE NURSE AWARE.
--- NOTE | 2022-12-23 18:05 | NUR ---
RN NOTE PER DR MILES, DC NORCO, ACTIVATE PERCOCET 5MG Q4H PRN. ORDERS PLACED.
--- NOTE | 2022-12-23 19:30 | NUR ---
RN OPENING NOTES RECEIVED PT IN BED, AWAKE, WATCHING TV. AOx2-3, WITH PERIODS OF FORGETFULNESS AND CONFUSION. ON RA AND TOLERATING WELL. NO SOB NOTED. NO S/SX OF RESPIRATORY DISTRESS NOTED. IV ACCESS IN RACHEL MIDLINE. IV IS INTACT, PATENT, AND FLUSHING WELL. SAFETY PRECAUTIONS IN PLACE: BED IN LOWEST, LOCKED POSITION, SIDERAILS UPx2, AND BRAKES ON. TABLE AND CALL LIGHT WITHIN REACH. ALL NEEDS MET AT THIS TIME.
--- NOTE | 2022-12-23 20:23 | NUR ---
RN NOTE PATIENT IN BED, A/OX3. BREATHING ON ROOM AIR O2 SAT OF 98%. TELE READING SR HR 90. ALL SAFETY MEASURES IN PLACE, BED LOCKED IN LOWEST POSITION, CALL LIGHT WITHIN REACH. WILL ENDORSE CONTINUITY OF CARE TO PEGGER.
[2022-12-23] MEDS: ATORVASTATIN 40 MG TABLET PO SCH (21:22)
--- NOTE | 2022-12-23 22:00 | NUR ---
RN NOTES REASSESSED BLOOD PRESSURE FOR 188/99 AND PULSE OF 90. ADMINISTERED HYDRALAZINE 10 mG via IV.
[2022-12-23] MEDS: *INSULIN REGULAR(HUMULIN R)HUM 100 UNIT/ML VIAL SQ PRN (22:01)
[2022-12-24] VITALS: BP 175/90
[2022-12-24 04:00] VITALS: BP 180/88
[2022-12-24] MEDS: hydrALAZINE HCL IV 20 MG VIAL IV PRN (05:06)
--- NOTE | 2022-12-24 06:58 | NUR ---
RN CLOSING NOTES PT IN BED, AWAKE, WATCHING TV. AOx2-3, WITH PERIODS OF FORGETFULNESS AND CONFUSION. ON RA AND TOLERATING WELL. NO SOB NOTED. NO S/SX OF RESPIRATORY DISTRESS NOTED. IV ACCESS IN RACHEL MIDLINE. IV IS INTACT, PATENT, AND FLUSHING WELL. ALL ORDERS CARRIED OUT. ALL NEEDS MET. PT KEPT CLEAN AND DRY. SAFETY PRECAUTIONS IN PLACE: BED IN LOWEST, LOCKED POSITION, SIDERAILS UPx2, AND BRAKES ON. TABLE AND CALL LIGHT WITHIN REACH. WILL ENDORSE TO ONCOMING SHIFT FOR CITLALI.
[2022-12-24 07:15] LABS: BASOPHILS # (AUTO) 0.1 K/uL (0.0-0.2); BASOPHILS % (AUTO) 0.6 % (0.0-2.0); EOSINOPHILS % (AUTO) 0.8 % (0.0-6.0); HEMATOCRIT 24 % (39-51); HEMOGLOBIN 7.8 g/dL (13.5-17.5); LYMPHOCYTES # (AUTO) 1.5 K/uL (0.8-4.8); LYMPHOCYTES % (AUTO) 13.6 % (20.0-44.0); MEAN CORPUSCULAR HGB CONC 32 g/dl (31.0-36.0); MEAN CORPUSCULAR VOLUME 80 fL (80-96); MONOCYTES # (AUTO) 0.9 K/uL (0.1-1.30); MONOCYTES % (AUTO) 8.4 % (2.0-12.0); NEUTROPHILS # (AUTO) 8.5 K/uL (1.8-8.9); NEUTROPHILS % (AUTO) 76.6 % (43.0-81.0); PLATELET COUNT (AUTO) 478 K/uL (150-450); RED BLOOD CELL COUNT(AUTO) 3.03 MIL/uL (4.5-6.0); WHITE BLOOD COUNT (AUTO) 11.1 K/uL (4.3-11.0)
[2022-12-24 07:21] LABS: CALCIUM, SERUM 8.1 mg/dL (8.5-10.1); CREATININE 4.6 mg/dL (0.6-1.3); POTASSIUM 4.7 mmol/L (3.5-5.1)
[2022-12-24] MEDS: BLOOD SUGAR DIAGNOSTIC 1 EACH STRIP VI SCH ×4 (07:51→21:25)
[2022-12-24 08:00] VITALS: BP 174/86
[2022-12-24] MEDS: PANTOPRAZOLE 40 MG VIAL IV SCH (08:50)
[2022-12-24] MEDS: DEXAMETHASONE SOD PHOSPHATE 10 MG/ML VIAL IV SCH (08:51)
[2022-12-24] MEDS: SODIUM POLYSTYRENE SULF. PWD 15 GM UDC PO SCH (08:51)
[2022-12-24] MEDS: PREGABALIN 100 MG CAPSULE PO SCH ×3 (08:52→17:39)
[2022-12-24] MEDS: ASPIRIN 81 MG TAB.CHEW PO SCH (08:52)
[2022-12-24] MEDS: CYCLOBENZAPRINE 10 MG TABLET PO SCH ×4 (08:52→21:05)
[2022-12-24] MEDS: METOPROLOL SUCCINATE 50 MG TAB.SR.24H PO SCH (08:52)
[2022-12-24] MEDS: APIXABAN 5 MG TABLET PO SCH ×2 (08:53→17:45)
[2022-12-24] MEDS: INSULIN REGULAR, HUMAN 100 UNIT/ML 3 ML VIAL SQ PRN ×3 (08:54→18:44)
[2022-12-24] MEDS: FUROSEMIDE 100 MG/10 ML VIAL IV SCH ×3 (10:41→17:43)
[2022-12-24] MEDS: METOLAZONE 2.5 MG TABLET PO SCH (10:41)
[2022-12-24] MEDS: ISOSORBIDE DINITRATE (20MG) 20 MG TABLET PO SCH ×2 (10:42→17:39)
[2022-12-24] MEDS: hydrALAZINE HCL 50 MG TABLET PO SCH ×3 (10:42→17:40)
[2022-12-24 12:00] VITALS: BP 136/78
[2022-12-24] MEDS: oxyCODONE/APAP (5/325 MG) 1 UDTAB TABLET PO PRN ×2 (14:18→21:26)
[2022-12-24 16:00] VITALS: BP 179/86
--- NOTE | 2022-12-24 19:26 | NUR ---
RN CLOSING NOTES PT IN BED, AOx2-3, WITH PERIODS OF FORGETFULNESS AND CONFUSION. BREATHING ON RA AND TOLERATING WELL. NO SOB NOTED. NO S/SX OF RESPIRATORY DISTRESS NOTED. IV ACCESS IN RACHEL MIDLINE. IV IS INTACT, PATENT, AND FLUSHING WELL. ALL ORDERS CARRIED OUT. ALL NEEDS MET. PT KEPT CLEAN AND DRY. SAFETY PRECAUTIONS IN PLACE: BED IN LOWEST, LOCKED POSITION, SIDERAILS UPx2, AND BRAKES ON. TABLE AND CALL LIGHT WITHIN REACH. WILL ENDORSE TO ONCOMING SHIFT FOR CITLALI.
[2022-12-24 20:00] VITALS: BP 158/72
--- NOTE | 2022-12-24 20:14 | NUR ---
RN NOTES. INITIAL ASSESSMENT. RECEIVED THE PT REST IN BED. SLEEPING. PT IS LETHARGIC. PT IS ROOM AIR. SAT IS 98%. NO ACUTE DISTRESS NOTED. HEATING AND BLENDING SUPERVISOR SHOWING NSR.IV LT UPPER ARM MID LINE.HOB ELEVATED. WILL CONTINUE TO MONITOR VITALS.
[2022-12-24] MEDS: ATORVASTATIN 40 MG TABLET PO SCH (21:05)
[2022-12-24] MEDS: *INSULIN REGULAR(HUMULIN R)HUM 100 UNIT/ML VIAL SQ PRN (21:28)
[2022-12-25] VITALS: BP 136/78
--- NOTE | 2022-12-25 02:15 | NUR ---
AM CARE GIVEN. REMAINING SAME ROOM AIR TOLERATED WELL. SAT 98%. NO ACUTE DISTRESS NOTED, MIXING MACHINE TENDER SHOWING NSR, TKO RUNNING. HOB ELEVATED. FC PATENT, URINE DRAINING. WILL CONTINUE TO MONITOR VITALS.
[2022-12-25 04:00] VITALS: BP 130/68
[2022-12-25 07:18] LABS: BASOPHILS % (AUTO) 0.3 % (0.0-2.0); EOSINOPHILS % (AUTO) 1.4 % (0.0-6.0); HEMATOCRIT 22 % (39-51); HEMOGLOBIN 7.1 g/dL (13.5-17.5); LYMPHOCYTES # (AUTO) 1.7 K/uL (0.8-4.8); LYMPHOCYTES % (AUTO) 15.3 % (20.0-44.0); MEAN CORPUSCULAR HGB CONC 33 g/dl (31.0-36.0); MEAN CORPUSCULAR VOLUME 80 fL (80-96); MONOCYTES # (AUTO) 0.9 K/uL (0.1-1.30); MONOCYTES % (AUTO) 7.9 % (2.0-12.0); NEUTROPHILS # (AUTO) 8.2 K/uL (1.8-8.9); NEUTROPHILS % (AUTO) 75.1 % (43.0-81.0); PLATELET COUNT (AUTO) 436 K/uL (150-450); RED BLOOD CELL COUNT(AUTO) 2.69 MIL/uL (4.5-6.0); WHITE BLOOD COUNT (AUTO) 10.9 K/uL (4.3-11.0)
[2022-12-25 08:00] VITALS: BP 111/62
[2022-12-25 08:04] LABS: ALBUMIN 1.7 g/dL (3.4-5.0); BILIRUBIN,TOTAL 0.2 mg/dL (0.2-1.0); CALCIUM, SERUM 8.1 mg/dL (8.5-10.1); TOTAL PROTEIN, SERUM 5.8 g/dL (6.4-8.2)
[2022-12-25 08:13] LABS: CREATININE 4.4 mg/dL (0.6-1.3)
[2022-12-25 08:21] LABS: POTASSIUM 4.4 mmol/L (3.5-5.1)
[2022-12-25] MEDS: BLOOD SUGAR DIAGNOSTIC 1 EACH STRIP VI SCH (08:32)
[2022-12-25] MEDS ORDERED: APIXABAN 2.5 MG TABLET PO SCH (09:00)
[2022-12-25] MEDS ORDERED: FUROSEMIDE 100 MG/10 ML VIAL IV SCH (09:00)
[2022-12-25] MEDS ORDERED: APIXABAN 5 MG TABLET PO SCH (09:00)
[2022-12-25] MEDS: DEXAMETHASONE SOD PHOSPHATE 10 MG/ML VIAL IV SCH (09:33)
[2022-12-25] MEDS: PANTOPRAZOLE 40 MG VIAL IV SCH (09:33)
[2022-12-25] MEDS: ISOSORBIDE DINITRATE (20MG) 20 MG TABLET PO SCH (09:34)
[2022-12-25] MEDS: PREGABALIN 100 MG CAPSULE PO SCH (09:35)
[2022-12-25] MEDS: ASPIRIN 81 MG TAB.CHEW PO SCH (09:35)
[2022-12-25] MEDS: hydrALAZINE HCL 50 MG TABLET PO SCH (09:35)
[2022-12-25] MEDS: CYCLOBENZAPRINE 10 MG TABLET PO SCH (09:35)
[2022-12-25 09:36] VITALS: BP 111/62
[2022-12-25] MEDS: METOPROLOL SUCCINATE 50 MG TAB.SR.24H PO SCH (09:36)
[2022-12-25] MEDS: METOLAZONE 2.5 MG TABLET PO SCH (09:36)
[2022-12-25] MEDS: SODIUM POLYSTYRENE SULF. PWD 15 GM UDC PO SCH (09:36)
[2022-12-25] MEDS: INSULIN REGULAR, HUMAN 100 UNIT/ML 3 ML VIAL SQ PRN (10:14)
[2022-12-25] MEDS: oxyCODONE/APAP (5/325 MG) 1 UDTAB TABLET PO PRN (10:15)
--- NOTE | 2022-12-25 10:29 | NUR ---
RN NOTE PATIENT REQUESTS TO LEAVE AGAINST MEDICAL ADVICE, SIGNED FORM. REFUSED TO SIGN BELONGINGS LIST. AWARE. CHARGE NURSE AWARE.
[2022-12-26] MEDS ORDERED: PANTOPRAZOLE 40 MG TABLET.DR PO SCH (09:00)
[2022-12-27] MEDS ORDERED: APIXABAN 5 MG TABLET PO SCH (09:00)
== END 2022-12-25 11:53 | disposition left against medical advice (07) | DRG 177 ==
LOC: ER 09:48 → TELE1 13:55 → TELE-TD 22:39 → TELE1 12-20 01:11 → ICU 12-21 09:33 → TELE1 12-23 10:35
PROVIDERS: ADMIT Nurse Practitioner Acute Care; ATTEND Nurse Practitioner Acute Care
PROC: 5A09457 Assistance with Respiratory Ventilation, 24-96 Consecutive Hours, Continuous Positive Airway Pressure (ICD-10-PCS; principal; 2022-12-21)
PROC: 05HF33Z Insertion of Infusion Device into Left Cephalic Vein, Percutaneous Approach (ICD-10-PCS; 2022-12-22)
DX: U07.1 COVID-19 (principal); G92.8 Other toxic encephalopathy; I50.33 Acute on chronic diastolic (congestive) heart failure; J12.82 Pneumonia due to coronavirus disease 2019; J96.21 Acute and chronic respiratory failure with hypoxia; J15.9 Unspecified bacterial pneumonia; N17.0 Acute kidney failure with tubular necrosis; I13.0 Hypertensive heart and chronic kidney disease with heart failure and stage 1 through stage 4 chronic kidney disease, or unspecified chronic kidney disease; F23 Brief psychotic disorder; D68.59 Other primary thrombophilia; J98.11 Atelectasis; E44.0 Moderate protein-calorie malnutrition; E11.22 Type 2 diabetes mellitus with diabetic chronic kidney disease; E78.5 Hyperlipidemia, unspecified; G89.29 Other chronic pain; Z79.899 Other long term (current) drug therapy; Z87.891 Personal history of nicotine dependence; F12.90 Cannabis use, unspecified, uncomplicated; Z98.890 Other specified postprocedural states; Z79.4 Long term (current) use of insulin; Z79.84 Long term (current) use of oral hypoglycemic drugs; Z79.82 Long term (current) use of aspirin; N18.9 Chronic kidney disease, unspecified; Z83.3 Family history of diabetes mellitus; Z79.01 Long term (current) use of anticoagulants; Z91.199 Patient's noncompliance with other medical treatment and regimen due to unspecified reason; I16.0 Hypertensive urgency; E87.5 Hyperkalemia; E88.09 Other disorders of plasma-protein metabolism, not elsewhere classified; E83.39 Other disorders of phosphorus metabolism; E66.01 Morbid (severe) obesity due to excess calories; Z68.38 Body mass index [BMI] 38.0-38.9, adult; G47.33 Obstructive sleep apnea (adult) (pediatric); R60.9 Edema, unspecified; I34.9 Nonrheumatic mitral valve disorder, unspecified; K74.60 Unspecified cirrhosis of liver; Z74.09 Other reduced mobility; D75.839 Thrombocytosis, unspecified
CPT/HCPCS: 36415; 36600; 71045-TC; 80048-TC; 80053-TC; 80076-TC; 81001; 82803-TC; 82962-TC; 83735-TC; 83880; 84100-TC; 84484-TC; 85025-TC; 85378-TC; 85610-TC; 85730-TC; 86140-TC; 87081-TC; 94660; 94799-TC; 97116-TC; 97530-TC; C9113; C9803; G0378; J0360; J0456; J0696; J1100; J1642; J1644; J1815; J1940; J2060; J3490; J7030; J7040; J7050; J7060

== ENCOUNTER 2023-01-01 21:17 | Inpatient (IN) | payer MEDICARE, OTHER ==
[~2023-01-01] VITALS: Ht 188 cm; Wt 138.3 kg
[~2023-01-01 21:17] MED LIST changes: +FURO80TA3 PO; -FURO80TA85 PO; +INSU100I24 SQ; -LISI10TA29 PO; -NICO-676 TD; +RAMI10CA69 PO
--- NOTE | 2023-01-01 21:28 | NUR ---
BLOOD SUGAR 79
--- NOTE | 2023-01-01 21:47 | NUR ---
MARINE ANIMAL TRAINER AT PT'S BEDSIDE
--- NOTE | 2023-01-01 21:48 | NUR ---
laborer filter plant at bedside for blood draw
[2023-01-01 22:06] LABS: BASOPHILS % (AUTO) 0.1 % (0.0-2.0); EOSINOPHILS % (AUTO) 1.9 % (0.0-6.0); HEMATOCRIT 25 % (39-51); LYMPHOCYTES # (AUTO) 0.8 K/uL (0.8-4.8); LYMPHOCYTES % (AUTO) 5.8 % (20.0-44.0); MEAN CORPUSCULAR HGB CONC 32 g/dl (31.0-36.0); MEAN CORPUSCULAR VOLUME 81 fL (80-96); MONOCYTES # (AUTO) 0.8 K/uL (0.1-1.30); MONOCYTES % (AUTO) 5.8 % (2.0-12.0); NEUTROPHILS # (AUTO) 11.6 K/uL (1.8-8.9); NEUTROPHILS % (AUTO) 86.4 % (43.0-81.0); PLATELET COUNT (AUTO) 387 K/uL (150-450); RED BLOOD CELL COUNT(AUTO) 3.15 MIL/uL (4.5-6.0); WHITE BLOOD COUNT (AUTO) 13.5 K/uL (4.3-11.0)
[2023-01-01 22:26] LABS: CALCIUM, SERUM 8.6 mg/dL (8.5-10.1); CREATININE 4.5 mg/dL (0.6-1.3); POTASSIUM 5.2 mmol/L (3.5-5.1)
[2023-01-02] MEDS ORDERED: DEXTROSE 50%-WATER 50 ML DISP.SYRIN ONE (00:47)
[2023-01-02] MEDS ORDERED: DEXTROSE 50%-WATER 50 ML DISP.SYRIN IVP ONE (01:00)
[2023-01-02] MEDS ORDERED: Sodium Chloride 77 MEQ in IV 10% DEXTROSE 1,000 ML IV PRN (02:00)
[2023-01-02] MEDS ORDERED: NITROGLYCERIN 0.4 MG/TAB BOTTLE SL PRN (02:30)
[2023-01-02] MEDS ORDERED: DEXTROSE 50%-WATER 50 ML DISP.SYRIN IV PRN (02:30)
[2023-01-02] MEDS ORDERED: MAG HYDROX/AL HYDROX/SIMETH 30 ML UDC PO PRN (02:30)
[2023-01-02] MEDS ORDERED: ZOLPIDEM TARTRATE 5 MG TABLET PO PRN (02:30)
[2023-01-02] MEDS ORDERED: IV D5/0.45 NACL 1,000 ML IV PRN (02:30)
[2023-01-02] MEDS ORDERED: Z GUARD REMEDY 4 OZ OINT TP PRN (02:30)
[2023-01-02] MEDS ORDERED: ONDANSETRON HCL/PF 4 MG/2 ML VIAL IVP PRN (02:30)
[2023-01-02] MEDS ORDERED: MAGNESIUM HYDROXIDE 30 ML UDC PO PRN (02:30)
[2023-01-02] MEDS: ACETAMINOPHEN 325 MG TABLET PO PRN (02:44)
--- NOTE | 2023-01-02 02:49 | NUR ---
room 106
[2023-01-02] MEDS ORDERED: HYDROCODONE/APAP 5/325MG TABLET PO ONE (03:00)
--- NOTE | 2023-01-02 03:11 | NUR ---
CALLED [facility] S/W RUDDY H[facility]DLESTON ER REPORT GIVEN ALL PERTINENT PT INFO PROVIDED. PT WILL BE GOING TO [id number].
[2023-01-02] MEDS: BLOOD SUGAR DIAGNOSTIC 1 EACH STRIP IN SCH ×6 (03:25→21:27)
[2023-01-02] MEDS: INSULIN REGULAR, HUMAN 100 UNIT/ML 3 ML VIAL SQ PRN ×4 (03:26→21:39)
--- NOTE | 2023-01-02 04:30 | NUR ---
RN NOTES ADMITTED 47YO MALE FROM ER, ARRIVED VIA STRETCHER ACCOMPANIED BY 2 ED PERSONNELS. PT AOX3, VERBALLY RESPONSIVE. ON RA, O2 SAT 93%, NO ACUTE RESP DISTRESS NOTED. AFEBRILE. DENIES PAIN/DISCOMFORT AT THIS TIME. IV ACCESS ON R HAND #18G, CLEAN, DRY AND PATENT. VSS. PT ABLE TO AMBULATE WITH ASSIST. SKIN ASSESSMENT DONE, BLE EDEMA +4 NOTED. FALL AND SAFETY PRECAUTION OBSERVED: BED LOCKED AND IN LOWEST POSITION, CALL LIGHT WITHIN EASY REACH.
[2023-01-02 04:42] VITALS: BP 157/88
[2023-01-02] MEDS ORDERED: CEFTRIAXONE 1 G VIAL ONE (04:45)
[2023-01-02] MEDS: CEFTRIAXONE 1 G in IV D5W 50 ML IV SCH ×2 (04:54→21:26)
[2023-01-02] MEDS ORDERED: AZITHROMYCIN 500 MG VIAL ONE (04:58)
[2023-01-02] MEDS: oxyCODONE/APAP (5/325 MG) 1 UDTAB TABLET PO PRN ×2 (05:18→15:24)
--- NOTE | 2023-01-02 05:19 | NUR ---
RN NOTES PT C/O PAIN 07/07 PER PS, PT WITH PMHX OF CHRONIC BACK PAIN. PRN MEDICATION GIVEN PER PT'S REQUEST ORDERED. WILL REASSES PT
[2023-01-02] MEDS: AZITHROMYCIN 500 MG in IV D5W 250 ML IV SCH ×2 (05:45→21:38)
--- NOTE | 2023-01-02 06:29 | NUR ---
RN NOTE HT=170, SLIDING SCALE REGULAR INSULIN HELD D/T PT'S EPISODE OF HYPOGLYCEMIA
[2023-01-02 06:51] LABS: CALCIUM, SERUM 8.2 mg/dL (8.5-10.1); CREATININE 4.5 mg/dL (0.6-1.3); POTASSIUM 5.1 mmol/L (3.5-5.1)
--- NOTE | 2023-01-02 07:40 | NUR ---
RN Opening Note Patient sleeping but easily aroused, AOx4, able to express his own concerns. No signs of distress or discomfort. Will continue to monitor throughout shift. All safety precautions taken, call light and table within reach, bed at lowest position.
[2023-01-02 08:00] VITALS: BP 145/88
[2023-01-02] MEDS: CYCLOBENZAPRINE 10 MG TABLET PO SCH ×4 (08:05→21:26)
[2023-01-02] MEDS: ASPIRIN 81 MG TAB.CHEW PO SCH (08:05)
[2023-01-02] MEDS: PREGABALIN 100 MG CAPSULE PO SCH ×3 (08:06→16:27)
[2023-01-02] MEDS: METOPROLOL SUCCINATE 50 MG TAB.SR.24H PO SCH (08:06)
[2023-01-02] MEDS ORDERED: RAMIPRIL 5 MG CAPSULE PO SCH (09:00)
[2023-01-02] MEDS ORDERED: BUMETANIDE INJ 16 MG in IV NS 0.9% 16 ML IV ONE (11:30)
[2023-01-02 12:00] VITALS: BP 140/75
--- NOTE | 2023-01-02 14:00 | NUR ---
RN Intervention Patient not urinating, gave him time to try. Per blader scan >400ml. In & Out cath, 520ml collected.
[2023-01-02 16:00] VITALS: BP 151/88
--- NOTE | 2023-01-02 18:23 | NUR ---
RN Closing Note Patient AOx2-3. No signs of distress, complains of back pain. Medication administered as ordered by MD. Patients total urine output 2320ml. Educated patient on importance of using urinal and not holding urine. Sister and nephew were at bedside earlier. All safety precautions taken, call light and table within reach, bed at lowest position.
[2023-01-02 20:00] VITALS: BP 168/94
--- NOTE | 2023-01-02 20:00 | NUR ---
TRUCKING SUPERVISOR NOTE PT IN BED AWAKE. A/O X 3, NO SOB, NO DISTRESS OR DISCOMFORT NOTED. DENIES PAIN. ON O2 2L VIA N/C O2 SAT 96%. ON TELE SR HR 98. IVF D 5 1/2 NS INFUSING AT 100 ML/HR, NO S/S OF INFILTRATION NOTED. KEPT HIM DRY AND CLEAN. ALL NEEDS ATTENDED. VSS. CONTINUE TO MONITOR HIM.
[2023-01-02] MEDS: ATORVASTATIN 40 MG TABLET PO SCH (21:26)
[2023-01-03] VITALS: BP 151/78
[2023-01-03] MEDS: BLOOD SUGAR DIAGNOSTIC 1 EACH STRIP IN SCH ×6 (00:59→21:53)
[2023-01-03] MEDS: INSULIN REGULAR, HUMAN 100 UNIT/ML 3 ML VIAL SQ PRN ×5 (01:02→21:56)
--- NOTE | 2023-01-03 04:15 | NUR ---
INSTITUTIONAL NUTRITION CONSULTANT NOTE PT WOKE UP AND PULLED IV LINE, MINOR BLOOD NOTED. PT IS AGITATED AND STATES "I WANT TO GO HOME NOW". PT DON'T WANT TO LISTEN ANYTHING. REMOVED O2 N/C ALSO. CALLED DTR ANDREW AT HOME AND SHE TALKED WITH THE PT. AFTER CONVERSATION WITH THE DTR PT STATES " I WILL STAY TILL MORNING AND THEN GO HOME". PT REFUSING IV LINE INSERTION AND O2 N/C. 1;1 TIME SPENT. PT WANT ME TO LEAVE THE ROOM. WILL CONTINUE TO MONITOR HIM.
[2023-01-03 06:18] LABS: BASOPHILS # (AUTO) 0.1 K/uL (0.0-0.2); BASOPHILS % (AUTO) 0.6 % (0.0-2.0); EOSINOPHILS % (AUTO) 6.5 % (0.0-6.0); HEMATOCRIT 23 % (39-51); HEMOGLOBIN 7.6 g/dL (13.5-17.5); LYMPHOCYTES # (AUTO) 1.4 K/uL (0.8-4.8); LYMPHOCYTES % (AUTO) 14.7 % (20.0-44.0); MEAN CORPUSCULAR HGB CONC 32 g/dl (31.0-36.0); MEAN CORPUSCULAR VOLUME 82 fL (80-96); MONOCYTES # (AUTO) 0.7 K/uL (0.1-1.30); MONOCYTES % (AUTO) 7.4 % (2.0-12.0); NEUTROPHILS # (AUTO) 6.9 K/uL (1.8-8.9); NEUTROPHILS % (AUTO) 70.8 % (43.0-81.0); PLATELET COUNT (AUTO) 351 K/uL (150-450); RED BLOOD CELL COUNT(AUTO) 2.84 MIL/uL (4.5-6.0); WHITE BLOOD COUNT (AUTO) 9.8 K/uL (4.3-11.0)
--- NOTE | 2023-01-03 06:30 | NUR ---
CANOE INSPECTOR NOTE PT IN BED ASLEEP, EASILY AROUSABLE. STILL REFUSING IV INSERTION AND O2 N/C. EASILY GETTING ANGRY. WILL ENDORSE TO DAY SHIFT NURSE FOR CONTINUE TO CARE.
[2023-01-03 06:43] LABS: BILIRUBIN,TOTAL 0.1 mg/dL (0.2-1.0); CALCIUM, SERUM 8.3 mg/dL (8.5-10.1); CREATININE 4.8 mg/dL (0.6-1.3); MAGNESIUM 1.7 mg/dL (1.8-2.4); PHOSPHORUS 5.9 mg/dL (2.5-4.9); TOTAL PROTEIN, SERUM 6.4 g/dL (6.4-8.2)
--- NOTE | 2023-01-03 07:30 | NUR ---
PT RECEIVED RESTING COMFORTABLY IN BED. NO S/S OR C/O PAIN OR DISTRESS NOTED. SIDE RAILS UP X2, CALL LIGHT LEFT WITHIN REACH. WILL CONTINUE PLAN OF CARE.
--- NOTE | 2023-01-03 07:36 | NUR ---
TRADEMARK PARALEGAL OPENING NOTES Patient sleeping but easily aroused, AOx4, able to express his own concerns. No signs of distress or discomfort. On RA, tolerating well, no sob noted, respiration even and unlabored. On tele monitor with reading SR HR 61. No s/sx of hypoglycemia. Safety measures in placed. Call light within reach. Plan of care continue.
[2023-01-03 07:57] LABS: ALBUMIN 1.4 g/dL (3.4-5.0)
[2023-01-03 08:00] VITALS: BP 159/82
[2023-01-03] MEDS: CYCLOBENZAPRINE 10 MG TABLET PO SCH ×4 (09:23→21:20)
[2023-01-03] MEDS: ASPIRIN 81 MG TAB.CHEW PO SCH (09:23)
[2023-01-03] MEDS: METOPROLOL SUCCINATE 50 MG TAB.SR.24H PO SCH (09:24)
[2023-01-03] MEDS: PREGABALIN 100 MG CAPSULE PO SCH ×3 (09:24→17:06)
--- NOTE | 2023-01-03 09:34 | NUR ---
WOUND CARE CONSULT: LIMITED ASSESSMENT DUE TO PT REFUSAL TO TURN FOR FULL SKIN ASSESSMENT. PT NOTED TO HAVE DRY ABRASIONS/SCABS TO ARMS AND LEGS, PRESENT ON ADMISSION. DISCUSSED SKIN PROTECTION WITH NURSING STAFF. MD IN AGREEMENT WITH PLAN OF CARE. WILL SEE PRN.
--- NOTE | 2023-01-03 10:48 | NUR ---
PAGED DR TIAN NOTIFIED OF MAGNESIUM LEVEL. AWAITING ORDERS.
[2023-01-03 12:00] VITALS: BP 163/87
[2023-01-03] MEDS: oxyCODONE IR immediate release 5 MG PO PRN ×2 (12:15→21:20)
[2023-01-03 16:00] VITALS: BP 148/86
--- NOTE | 2023-01-03 18:53 | NUR ---
CHANGE OF SHIFT REPORT PT RESTING COMFORTABLY IN BED. NO S/S OR C/O PAIN OR DISTRESS NOTED. SIDERAILS UP X2, CALL LIGHT LEFT WITHIN REACH. PT KEPT CLEAN, DRY, AND COMFORTABLE. NO SIGNIFICANT CHANGES SINCE PREVIOUS SHIFT. WILL GIVE REPORT TO LISA FOX.
--- NOTE | 2023-01-03 19:50 | NUR ---
CORPORATE ETHICS OFFICER OPENING NOTE RECEIVED PT IN BED AWAKE, WITH SISTER AT BED SIDE. PT A/O X 3, NO SOB, NO DISTRESS OR DISCOMFORT NOTED. DENIES PAIN AT THIS TIME. ON O2 2L VIA N/C O2, WITH SAT AT 99%. ON TELE MONITOR READING SR WITH HR 9O. MIDLINE TO RIGHT UA WITH IVF D 5 1/2 NS INFUSING AT 100 ML/HR, NO S/S OF INFILTRATION NOTED. SAFETY MEASURES IN PLACE: BED LOCKED IN LOW POSITION, SIDE RAILS UP X 2, CALL LIGHT WITHIN REACH. WILL CONTINUE TO MONITOR PT.
[2023-01-03 20:00] VITALS: BP 154/88
[2023-01-03] MEDS: CEFTRIAXONE 1 G in IV D5W 50 ML IV SCH (21:20)
[2023-01-03] MEDS: ATORVASTATIN 40 MG TABLET PO SCH (21:20)
[2023-01-03] MEDS: AZITHROMYCIN 500 MG in IV D5W 250 ML IV SCH (21:54)
[2023-01-04] VITALS: BP 146/83
[2023-01-04] MEDS: BLOOD SUGAR DIAGNOSTIC 1 EACH STRIP IN SCH ×6 (01:16→21:50)
[2023-01-04 04:00] VITALS: BP 148/85
[2023-01-04 04:24] LABS: CALCIUM, SERUM 8.4 mg/dL (8.5-10.1); CREATININE 4.4 mg/dL (0.6-1.3); POTASSIUM 4.8 mmol/L (3.5-5.1)
[2023-01-04] MEDS ORDERED: FAMOTIDINE/PF INJ 20 MG/2 ML VIAL IV ONE (05:38)
[2023-01-04] MEDS ORDERED: FENTANYL PF 250MCG/5ML AMPUL ONE (05:38)
[2023-01-04] MEDS ORDERED: ANESTHESIA TRAY IN PYXIS 1 EA TRAY MC ONE (06:20)
[2023-01-04] MEDS ORDERED: HEPARIN SODIUM, PORCINE 1,000 UNIT/ML VIAL ONE (06:20)
[2023-01-04] MEDS ORDERED: IOHEXOL 0 ML IV ONE (06:21)
[2023-01-04] MEDS ORDERED: LIDOCAINE HCL/MPF 1% 30 ML VIAL IJ ONE (06:21)
--- NOTE | 2023-01-04 06:25 | NUR ---
REGIONAL EDUCATION MANAGER CLOSING NOTE PT LEFT VIA GURNEY TO OR FOR PERMA CATH PLACEMENT WITH OR NURSE. ALL CONSENT SIGNED, AND CHECK LIST COMPLETED, AND PLACED IN CHART. PT IN STABLE CONDITION, NO SOB, NO RESPIRATORY DISTRESS NOTED. WILL ENDORSE PT TO AM SHIFT NURSE FOR CITLALI.
[2023-01-04 06:26] LABS: BASOPHILS % (AUTO) 0.3 % (0.0-2.0); EOSINOPHILS % (AUTO) 6.3 % (0.0-6.0); HEMATOCRIT 22 % (39-51); LYMPHOCYTES # (AUTO) 1.5 K/uL (0.8-4.8); LYMPHOCYTES % (AUTO) 13.1 % (20.0-44.0); MEAN CORPUSCULAR HGB CONC 32 g/dl (31.0-36.0); MEAN CORPUSCULAR VOLUME 83 fL (80-96); MONOCYTES # (AUTO) 0.8 K/uL (0.1-1.30); MONOCYTES % (AUTO) 7.1 % (2.0-12.0); NEUTROPHILS # (AUTO) 8.5 K/uL (1.8-8.9); NEUTROPHILS % (AUTO) 73.2 % (43.0-81.0); PLATELET COUNT (AUTO) 351 K/uL (150-450); RED BLOOD CELL COUNT(AUTO) 2.68 MIL/uL (4.5-6.0); WHITE BLOOD COUNT (AUTO) 11.7 K/uL (4.3-11.0)
--- NOTE | 2023-01-04 06:35 | NUR ---
0635 CRITICAL HGB 7.0 REPORTED TO TOYA DO WITH ORDER MADE.
[2023-01-04 06:43] LABS: CALCIUM, SERUM 8.5 mg/dL (8.5-10.1); CREATININE 4.5 mg/dL (0.6-1.3); POTASSIUM 4.9 mmol/L (3.5-5.1)
--- NOTE | 2023-01-04 07:30 | NUR ---
CHILD WELFARE CASEWORKER NOTES Received endorsement that pt is currently in a procedure for PermCath placement.
[2023-01-04 08:00] VITALS: BP 162/89
--- NOTE | 2023-01-04 08:40 | NUR ---
DEBONING TEAM LEADER NOTES Pt came back from PermCath procedure and it is on the RUC. Tolerated the procedure well. MD OR nurse stated MD said line is ok to use. MD resumed all diet orders. Pt is currently on 3L NC. Will continue to monitor.
[2023-01-04] MEDS: ASPIRIN 81 MG TAB.CHEW PO SCH (09:10)
[2023-01-04] MEDS: METOPROLOL SUCCINATE 50 MG TAB.SR.24H PO SCH (09:10)
[2023-01-04] MEDS: CYCLOBENZAPRINE 10 MG TABLET PO SCH ×4 (09:11→21:21)
[2023-01-04] MEDS: PREGABALIN 100 MG CAPSULE PO SCH ×3 (09:11→16:36)
[2023-01-04] MEDS: oxyCODONE IR immediate release 5 MG PO PRN (10:45)
--- NOTE | 2023-01-04 11:14 | NUR ---
HANDMADE TILE ARTIST NOTES Dr. Valdivia seen and evaluated pt and orered a iron panel and give 1 unit packed rbc with HD today.
[2023-01-04 12:00] VITALS: BP 147/84
[2023-01-04 12:02] LABS: IRON, SERUM 10 ug/dl (50-175); TOTAL IRON BINDING CAPACITY 128 ug/dl (250-450)
--- NOTE | 2023-01-04 12:17 | NUR ---
SUPERVISOR CASE LOADING NOTES Blood transfusion started and given to HD nurse to transfuse. Per MD order.
[2023-01-04] MEDS: INSULIN REGULAR, HUMAN 100 UNIT/ML 3 ML VIAL SQ PRN ×2 (12:20→21:32)
[2023-01-04] MEDS ORDERED: IV D5/0.45 NACL 1,000 ML IV PRN (12:30)
[2023-01-04] MEDS ORDERED: IRON SUCROSE COMPLEX 100 MG in IV NS 0.9% 100 ML IV SCH (14:00)
--- NOTE | 2023-01-04 14:33 | NUR ---
AUTOCUTTER NOTES HD done. Pt tolerated it well. 2L of fluid taken out.
[2023-01-04 16:00] VITALS: BP 153/88
--- NOTE | 2023-01-04 18:29 | NUR ---
DENTAL SECRETARY CLOSING NOTES All due meds and tx given as ordered. Pt tolerated everything well. All needs attended to. Pt is currently on 3L NC and tolerating it well. IV access on BAM midline patent and intact. HOB elevated to pts comfort. Siderails up at all times x2. Bed at its lowest setting. Call light within reach. Will endorse to oncoming nurse.
--- NOTE | 2023-01-04 19:53 | NUR ---
RN OPENING NOTES; Received pt in bed sleeping but easy to aroused,on 3l o2 via nc oskar,well satting 98%,no sign Sob/Distress noted, IV access on BAM midline patent and intact.safety measure in place,Call light within reach. Will continue to monitor.
[2023-01-04 20:00] VITALS: BP 166/88
[2023-01-04] MEDS: ATORVASTATIN 40 MG TABLET PO SCH (21:21)
[2023-01-04] MEDS: HEPARIN SODIUM, PORCINE 5000 UNITS/1 ML VIAL SQ SCH (21:22)
[2023-01-04] MEDS: CEFTRIAXONE 1 G in IV D5W 50 ML IV SCH (21:27)
[2023-01-04] MEDS: AZITHROMYCIN 500 MG in IV D5W 250 ML IV SCH (21:34)
[2023-01-05] VITALS: BP 166/94
[2023-01-05] MEDS: BLOOD SUGAR DIAGNOSTIC 1 EACH STRIP IN SCH ×6 (00:40→20:54)
--- NOTE | 2023-01-05 00:40 | NUR ---
RN NOTE; PT REFUSED BS CHECK.
[2023-01-05 04:00] VITALS: BP 167/92
[2023-01-05] MEDS: INSULIN REGULAR, HUMAN 100 UNIT/ML 3 ML VIAL SQ PRN ×3 (05:08→20:57)
--- NOTE | 2023-01-05 06:25 | NUR ---
RN CLOSING NOTES; Patient in bed [id number] with confusion but able to make needs known,on 3l o2 via nc oskar,well satting 96.6%,no sign Sob/Distress noted,no complained of pain/discomfort during shift,due meds given as order,all needs attended,IV access on BAM midline patent and intact.Pt BRP Ambulatory with assest,safety measure in place,Call light within reach. Will Endorsed to next shift.
[2023-01-05 06:58] LABS: BASOPHILS # (AUTO) 0.1 K/uL (0.0-0.2); BASOPHILS % (AUTO) 0.6 % (0.0-2.0); EOSINOPHILS % (AUTO) 7.8 % (0.0-6.0); HEMATOCRIT 24 % (39-51); LYMPHOCYTES # (AUTO) 1.3 K/uL (0.8-4.8); LYMPHOCYTES % (AUTO) 16.6 % (20.0-44.0); MEAN CORPUSCULAR HGB CONC 33 g/dl (31.0-36.0); MEAN CORPUSCULAR VOLUME 82 fL (80-96); MONOCYTES # (AUTO) 0.6 K/uL (0.1-1.30); MONOCYTES % (AUTO) 7.3 % (2.0-12.0); NEUTROPHILS # (AUTO) 5.3 K/uL (1.8-8.9); NEUTROPHILS % (AUTO) 67.7 % (43.0-81.0); PLATELET COUNT (AUTO) 323 K/uL (150-450); RED BLOOD CELL COUNT(AUTO) 2.93 MIL/uL (4.5-6.0); WHITE BLOOD COUNT (AUTO) 7.9 K/uL (4.3-11.0)
[2023-01-05 07:10] LABS: CALCIUM, SERUM 8.6 mg/dL (8.5-10.1); CREATININE 3.8 mg/dL (0.6-1.3); MAGNESIUM 1.8 mg/dL (1.8-2.4); PHOSPHORUS 5.1 mg/dL (2.5-4.9); POTASSIUM 4.7 mmol/L (3.5-5.1)
[2023-01-05 08:00] VITALS: BP 198/88
[2023-01-05] MEDS: PREGABALIN 100 MG CAPSULE PO SCH ×3 (08:06→16:23)
[2023-01-05] MEDS: ASPIRIN 81 MG TAB.CHEW PO SCH (08:06)
[2023-01-05] MEDS: CYCLOBENZAPRINE 10 MG TABLET PO SCH ×4 (08:07→20:33)
[2023-01-05] MEDS: METOPROLOL SUCCINATE 50 MG TAB.SR.24H PO SCH (08:08)
[2023-01-05] MEDS: HEPARIN SODIUM, PORCINE 5000 UNITS/1 ML VIAL SQ SCH ×2 (08:10→20:57)
[2023-01-05] MEDS: hydrALAZINE HCL 25 MG TABLET PO SCH ×3 (10:19→20:49)
[2023-01-05 12:00] VITALS: BP 184/95
[2023-01-05] MEDS ORDERED: SOD FERRIC GLUC 125 MG in IV NS 0.9% 100 ML IV SCH (14:00)
[2023-01-05] MEDS: EPOETIN ALFA (4000 UNIT) 4,000 UNIT/ML VIAL IV SCH (15:00)
[2023-01-05 16:00] VITALS: BP 167/98
--- NOTE | 2023-01-05 18:23 | NUR ---
CLOSING NOTES; Patient in bed Aaox3 with confusion but able to make needs known,on 3l o2 via nc oskar,well satting 96.6%,no sign Sob/Distress noted,no complained of pain/discomfort during shift,all needs attended,IV access on BAM midline patent and intact.Pt BRP Ambulatory with assest,safety measure in place,Call light within reach. Will Endorsed to next shift.
--- NOTE | 2023-01-05 19:30 | NUR ---
PIPING DESIGNER OPENING NOTES - RECEIVED PATIENT AWAKE, HOB IN HIGH DAVIS'S. SISTER ON BEDSIDE. A/O X3, WITH PERIODS OF CONFUSION AND IRRITABILITY. BREATHING EVEN AND NON-LABORED ON ROOM AIR. NOT IN APPARENT DISTRESS. C/O CHRONIC SHARP LOW BACK PAIN 09/06. ON TELE MONITOR READING SINUS RHYTHM AT 85 BPM. HAS RIGHT UPPER ARM MIDLINE #18G AND SALINE LOCKED. NO S/S OF INFILTRATION NOTED. SAFETY PRECAUTIONS IN PLACE: BED LOCKED AND IN LOW POSITION, SIDE RAILS UP X2, CALL LIGHT WITHIN REACH. WILL CONTINUE PLAN OF CARE.
--- NOTE | 2023-01-05 19:42 | NUR ---
PER GRAND RN, HE DID NOT GIVE THE EPOTEN SINCE PATIENT DID NOT HAVE HD TODAY.
[2023-01-05] MEDS: oxyCODONE IR immediate release 5 MG PO PRN (19:54)
[2023-01-05 20:00] VITALS: BP 178/93
--- NOTE | 2023-01-05 20:00 | NUR ---
GAVE PRN OXY IR 5MG FOR CHRONIC LOW BACK PAIN. TOLERATED WELL AND WILL CONTINUE PAIN MGT.
[2023-01-05] MEDS: CEFTRIAXONE 1 G in IV D5W 50 ML IV SCH (20:26)
[2023-01-05] MEDS: ATORVASTATIN 40 MG TABLET PO SCH (21:04)
[2023-01-05] MEDS: AZITHROMYCIN 500 MG in IV D5W 250 ML IV SCH (21:08)
[2023-01-06] VITALS: BP 171/69
[2023-01-06] MEDS: BLOOD SUGAR DIAGNOSTIC 1 EACH STRIP IN SCH ×6 (00:47→21:24)
[2023-01-06] MEDS: INSULIN REGULAR, HUMAN 100 UNIT/ML 3 ML VIAL SQ PRN ×4 (00:48→17:19)
[2023-01-06 04:00] VITALS: BP 161/92
[2023-01-06] MEDS: hydrALAZINE HCL 25 MG TABLET PO SCH ×3 (04:39→21:30)
--- NOTE | 2023-01-06 07:02 | NUR ---
SENIOR TECHNOLOGIST CLOSING NOTES - PATIENT SLEEPING INTERMITTENTLY. ABLE TO VERBALIZE NEEDS. NO ACUTE DISTRESS THROUGHOUT THE NIGHT. NO SOB OR NOTED. NO C/O PAIN OR DISCOMFORT AT THIS TIME. AFEBRILE. ON TELE MONITOR READING SINUS RHYTHM WITH OCCASIONAL PVC AT 90 BPM. RIGHT UPPER ARM MIDLINE INTACT, PATENT AND FLUSHING. ALL DUE MEDS GIVEN AND NEEDS ATTENDED. SAFETY PRECAUTIONS MAINTAINED. WILL ENDORSE TO NEXT SHIFT FOR CITLALI.
[2023-01-06 07:31] LABS: BASOPHILS % (AUTO) 0.4 % (0.0-2.0); EOSINOPHILS % (AUTO) 8.2 % (0.0-6.0); HEMATOCRIT 25 % (39-51); LYMPHOCYTES # (AUTO) 1.2 K/uL (0.8-4.8); MEAN CORPUSCULAR HGB CONC 32 g/dl (31.0-36.0); MEAN CORPUSCULAR VOLUME 81 fL (80-96); MONOCYTES # (AUTO) 0.6 K/uL (0.1-1.30); MONOCYTES % (AUTO) 6.6 % (2.0-12.0); NEUTROPHILS # (AUTO) 5.9 K/uL (1.8-8.9); NEUTROPHILS % (AUTO) 70.8 % (43.0-81.0); PLATELET COUNT (AUTO) 357 K/uL (150-450); WHITE BLOOD COUNT (AUTO) 8.4 K/uL (4.3-11.0)
[2023-01-06 07:56] LABS: CALCIUM, SERUM 8.7 mg/dL (8.5-10.1); CREATININE 3.8 mg/dL (0.6-1.3); MAGNESIUM 1.8 mg/dL (1.8-2.4); PHOSPHORUS 4.6 mg/dL (2.5-4.9); POTASSIUM 4.1 mmol/L (3.5-5.1)
[2023-01-06 08:00] VITALS: BP 173/87
[2023-01-06] MEDS: PREGABALIN 100 MG CAPSULE PO SCH ×3 (08:08→16:15)
[2023-01-06] MEDS: CYCLOBENZAPRINE 10 MG TABLET PO SCH ×4 (08:08→21:30)
[2023-01-06] MEDS: ASPIRIN 81 MG TAB.CHEW PO SCH (08:08)
[2023-01-06] MEDS: HEPARIN SODIUM, PORCINE 5000 UNITS/1 ML VIAL SQ SCH ×2 (08:09→21:31)
[2023-01-06] MEDS: METOPROLOL SUCCINATE 50 MG TAB.SR.24H PO SCH (09:19)
--- NOTE | 2023-01-06 10:00 | NUR ---
FOLLOW UP WITH HEMODIALYSIS NURSE REGARDING ETA HD TODAY, PATIENT WAS NOT DIALYZED YESTERDAY AND GOT BUMP OFF FOR TODAY. ELECTRODE CLEANERRUDDY YADAV.
[2023-01-06 12:00] VITALS: BP 167/94
[2023-01-06] MEDS: SOD FERRIC GLUC 125 MG in IV NS 0.9% 100 ML IV SCH (13:16)
[2023-01-06 16:00] VITALS: BP 186/84
[2023-01-06] MEDS: FUROSEMIDE 40 MG/4 ML VIAL IV SCH (16:12)
--- NOTE | 2023-01-06 18:09 | NUR ---
CLOSING NOTES; Patient in bed Aaox3 with confusion but able to make needs known,on 3l o2 via nc oskar,well satting 96.6%,no sign Sob/Distress noted,no complained of pain/discomfort during shift,all needs attended,IV access on BAM midline patent and intact.Pt BRP Ambulatory with assest,safety measure in place,Call light within reach. HD just started. Will Endorsed to next shift.
[2023-01-06 20:00] VITALS: BP 140/65
[2023-01-06] MEDS: CEFTRIAXONE 1 G in IV D5W 50 ML IV SCH (21:29)
[2023-01-06] MEDS: ATORVASTATIN 40 MG TABLET PO SCH (21:30)
[2023-01-07] VITALS: BP 158/87
[2023-01-07] MEDS: BLOOD SUGAR DIAGNOSTIC 1 EACH STRIP IN SCH ×6 (00:06→21:00)
[2023-01-07] MEDS: oxyCODONE IR immediate release 5 MG PO PRN (02:27)
[2023-01-07 04:00] VITALS: BP 159/96
[2023-01-07] MEDS: hydrALAZINE HCL 25 MG TABLET PO SCH ×3 (04:23→21:00)
--- NOTE | 2023-01-07 07:47 | NUR ---
RN Opening Note Patient AOx1, able to express his concerns. Patient out of bed, reminded of precautions needed. Patient states he does not remember his situation or why he is here. Oriented pt to situation and place. Patient confused. All safety precautions taken, call light and table within reach, bed at lowest position.
[2023-01-07 08:00] VITALS: BP 144/86
[2023-01-07] MEDS: PREGABALIN 100 MG CAPSULE PO SCH ×3 (08:32→17:30)
[2023-01-07] MEDS: FUROSEMIDE 40 MG/4 ML VIAL IV SCH ×2 (08:32→17:30)
[2023-01-07] MEDS: oxyCODONE/APAP (5/325 MG) 1 UDTAB TABLET PO PRN ×2 (08:32→18:28)
[2023-01-07] MEDS: METOPROLOL SUCCINATE 50 MG TAB.SR.24H PO SCH (08:32)
[2023-01-07] MEDS: ASPIRIN 81 MG TAB.CHEW PO SCH (08:33)
[2023-01-07] MEDS: CYCLOBENZAPRINE 10 MG TABLET PO SCH ×4 (08:33→23:01)
[2023-01-07] MEDS: HEPARIN SODIUM, PORCINE 5000 UNITS/1 ML VIAL SQ SCH (08:33)
[2023-01-07] MEDS: INSULIN REGULAR, HUMAN 100 UNIT/ML 3 ML VIAL SQ PRN ×3 (10:31→22:41)
[2023-01-07 12:00] VITALS: BP 153/79
[2023-01-07] MEDS: SOD FERRIC GLUC 125 MG in IV NS 0.9% 100 ML IV SCH (14:26)
--- NOTE | 2023-01-07 14:28 | NUR ---
CHARGE NURSE NOTES HOLD DISCHARGE PER DR. NAJERA. PATIENT FOR US GUIDED THORACENTESIS TOMORROW.
[2023-01-07] MEDS: EPOETIN ALFA (4000 UNIT) 4,000 UNIT/ML VIAL IV SCH (15:40)
[2023-01-07 16:00] VITALS: BP 144/76
--- NOTE | 2023-01-07 18:14 | NUR ---
RN Closing Note Patient AOx2-3, able to express concerns. Patient states he does not remember how he got to hospital or how long he has been here. Patient oriented to situation. Discussed plan of care and the need to stay till tomorrow. Patient agrees with plan. All safety precautions taken, dialysis ongoing now. All safety precautions taken, call light and table within reach, bed at lowest position.
[2023-01-07 20:00] VITALS: BP 156/88
[2023-01-07] MEDS: CEFTRIAXONE 1 G in IV D5W 50 ML IV SCH (21:00)
[2023-01-07] MEDS: ATORVASTATIN 40 MG TABLET PO SCH (23:01)
[2023-01-08] VITALS: BP 146/78
[2023-01-08] MEDS: BLOOD SUGAR DIAGNOSTIC 1 EACH STRIP IN SCH ×6 (01:42→21:15)
[2023-01-08] MEDS: INSULIN REGULAR, HUMAN 100 UNIT/ML 3 ML VIAL SQ PRN ×4 (01:54→21:20)
[2023-01-08] MEDS: oxyCODONE/APAP (5/325 MG) 1 UDTAB TABLET PO PRN ×2 (03:57→17:39)
[2023-01-08] MEDS: hydrALAZINE HCL 25 MG TABLET PO SCH ×3 (05:30→21:14)
[2023-01-08] MEDS: ACETAMINOPHEN 325 MG TABLET PO PRN (06:24)
--- NOTE | 2023-01-08 07:00 | NUR ---
MERCHANDISE CARRIER OPENING NOTE RECEIVED PATIENT AWAKE, SITTING, A/O X 4. BREATHING EVEN AND NON-LABORED ON ROOM AIR. NOT IN APPARENT DISTRESS. HAS RIGHT UPPER ARM MIDLINE #18G SALINE LOCKED, NO S/S OF INFILTRATION NOTED. SAFETY PRECAUTIONS IMPLEMENTED, CALL LIGHT WITHIN REACH. WILL CONTINUE PLAN OF CARE.
[2023-01-08 08:00] VITALS: BP 101/65
[2023-01-08] MEDS: ASPIRIN 81 MG TAB.CHEW PO SCH (08:33)
[2023-01-08] MEDS: PREGABALIN 100 MG CAPSULE PO SCH ×3 (08:33→17:39)
[2023-01-08] MEDS: FUROSEMIDE 40 MG/4 ML VIAL IV SCH ×2 (08:33→17:39)
[2023-01-08] MEDS: METOPROLOL SUCCINATE 50 MG TAB.SR.24H PO SCH (08:34)
[2023-01-08] MEDS: CYCLOBENZAPRINE 10 MG TABLET PO SCH ×4 (08:35→21:13)
--- NOTE | 2023-01-08 08:51 | NUR ---
Per Dr. Rice thoracentesis will be done on Tuesday. Shanta FOX was informed
--- NOTE | 2023-01-08 10:20 | NUR ---
GOT A CALL FROM MOBILE SERVICE RV TECHNICIAN, REGARDING POSSIBLE SCHEDULING ULTRASOUND GUIDED THORACENTESIS. HAVE PT SIGN CONSENT FOR PROCEDURE.
[2023-01-08 12:00] VITALS: BP 133/72
--- NOTE | 2023-01-08 14:00 | NUR ---
PATIENT STARTED HEMODIALYSIS. VITAL SIGNS: B/P150/81; HR 80
[2023-01-08 16:00] VITALS: BP 122/75
--- NOTE | 2023-01-08 16:20 | NUR ---
PATIENT HAD DIALYSIS PERFORMED FROM 14:00 TO 16:20, TOLERATED WELL. VITALS STABLE. 3008CC OF FLUID TAKEN.
--- NOTE | 2023-01-08 16:50 | NUR ---
MEDICATION FERLICIT STARTED AT 16:50 NOT AT 1400 SCHEDULED, D/T MED BEEN DELIVERED FROM PHARMACY AT 1420, AND PT ALREADY UNDERGOING DIALYSIS.
[2023-01-08] MEDS: SOD FERRIC GLUC 125 MG in IV NS 0.9% 100 ML IV SCH (16:53)
--- NOTE | 2023-01-08 19:00 | NUR ---
RECEIVED REPORT FROM YESSICA PALMA
--- NOTE | 2023-01-08 19:39 | NUR ---
BATH SOLUTION MAKER CLOSING NOTE PATIENT AWAKE, AMBULATORY WITH ASSISTANCE, A/O X 4. SATURATION 96 ON 2L VIA NC. NOT IN APPARENT DISTRESS. TOLERATED DIALYSIS WELL. RIGHT UPPER ARM MIDLINE #18G SALINE LOCKED, NO S/S OF INFILTRATION NOTED. SAFETY PRECAUTIONS IMPLEMENTED, CALL LIGHT WITHIN REACH. WILL ENDORSE TO THE NIGHT NURSE FOR CITLALI.
[2023-01-08 20:00] VITALS: BP 116/77
[2023-01-08] MEDS: CEFTRIAXONE 1 G in IV D5W 50 ML IV SCH (21:15)
[2023-01-08] MEDS: ATORVASTATIN 40 MG TABLET PO SCH (21:22)
[2023-01-09] VITALS: BP 133/72
[2023-01-09] MEDS: BLOOD SUGAR DIAGNOSTIC 1 EACH STRIP IN SCH ×6 (01:00→23:43)
[2023-01-09 04:00] VITALS: BP 138/70
[2023-01-09] MEDS: hydrALAZINE HCL 25 MG TABLET PO SCH ×3 (05:36→21:34)
[2023-01-09] MEDS: oxyCODONE IR immediate release 5 MG PO PRN (05:46)
--- NOTE | 2023-01-09 07:21 | NUR ---
REPORT GIVE TO RN, PATIENT C/O ANXIETY, NOT BEING ABLE TO SLEEP, AND A HEADACHE BP WAS 202/84, DR. MILES MADE AWARE, NEW ORDERS GIVEN, HYDRALAZINE 10CC GIVEN AND ATIVEN 0.5 PO GIVEN, PATIENT SLEEPING NOW AND BP AT 0700 WAS 159/93.
--- NOTE | 2023-01-09 07:26 | NUR ---
REPORT GIVE TO GRAND FOX.
--- NOTE | 2023-01-09 07:30 | NUR ---
PATIENT IS RESTING IN BED COMFORTABLY, NO COMPLAINT OF PAIN, NO SIGN OF IN DISTRESS, UNLABORED BREATHING ON ROOM AIR, SPO2-98%. IV LINE IS PATENT AND INTACT.
[2023-01-09 08:00] VITALS: BP 118/78
[2023-01-09] MEDS: PREGABALIN 100 MG CAPSULE PO SCH ×3 (08:35→16:27)
[2023-01-09] MEDS: ASPIRIN 81 MG TAB.CHEW PO SCH (08:35)
[2023-01-09] MEDS: CYCLOBENZAPRINE 10 MG TABLET PO SCH ×4 (08:35→21:34)
[2023-01-09] MEDS: METOPROLOL SUCCINATE 50 MG TAB.SR.24H PO SCH (08:36)
[2023-01-09] MEDS: FUROSEMIDE 40 MG/4 ML VIAL IV SCH ×2 (08:36→16:27)
[2023-01-09] MEDS: GLUCERNA SHAKE 237 ML CAN PO SCH (08:36)
--- NOTE | 2023-01-09 10:37 | NUR ---
PATIENT IS TRANSFER TO [facility] FROM TELE PER DR JACOBO
[2023-01-09 12:00] VITALS: BP 131/75
[2023-01-09 12:50] LABS: CREATININE 3.8 mg/dL (0.6-1.3); POTASSIUM 3.6 mmol/L (3.5-5.1)
[2023-01-09 12:55] LABS: ALBUMIN 1.5 g/dL (3.4-5.0); BILIRUBIN,TOTAL 0.2 mg/dL (0.2-1.0); TOTAL PROTEIN, SERUM 6.1 g/dL (6.4-8.2)
[2023-01-09] MEDS: INSULIN REGULAR, HUMAN 100 UNIT/ML 3 ML VIAL SQ PRN ×2 (13:01→23:42)
[2023-01-09] MEDS: SOD FERRIC GLUC 125 MG in IV NS 0.9% 100 ML IV SCH (14:18)
[2023-01-09 16:00] VITALS: BP 141/86
--- NOTE | 2023-01-09 18:53 | NUR ---
CLOSING NOTES; Patient in bed Aaox3 with confusion but able to make needs known,on 3l o2 via nc oskar,well satting 96.6%,no sign Sob/Distress noted,no complained of pain/discomfort during shift,all needs attended,IV access on BAM midline patent and intact.Pt BRP Ambulatory with assist,safety measure in place,Call light within reach. HD today, 3 liters off. Will Endorsed to next shift.
--- NOTE | 2023-01-09 19:30 | NUR ---
RN NOTE RECEIVED PT IN BED COMFORTABLY RESTING. PT AAOX3, VERBALLY RESPONSIVE. ON O2 AT 2LPM VIA NC, RESPIRATIONS LABORED, ACUTE RESP DISTRESS NOTED. PT DENIES PAIN/DISCOMFORT AT THIS TIME. IV ACCESS BAM ML SL, CLEAN, DRY, INTACT. CALL LIGHT WITHIN REACH, SAFETY PRECAUTION IMPLEMENTED AT ALL TIMES. WILL CONT POC.
[2023-01-09] MEDS: CEFTRIAXONE 1 G in IV D5W 50 ML IV SCH (21:33)
[2023-01-09] MEDS: ATORVASTATIN 40 MG TABLET PO SCH (21:34)
[2023-01-10] VITALS: BP 129/82
[2023-01-10] MEDS: BLOOD SUGAR DIAGNOSTIC 1 EACH STRIP IN SCH ×4 (01:39→13:42)
[2023-01-10] MEDS: INSULIN REGULAR, HUMAN 100 UNIT/ML 3 ML VIAL SQ PRN ×4 (01:40→13:57)
[2023-01-10] MEDS: oxyCODONE IR immediate release 5 MG PO PRN (01:42)
--- NOTE | 2023-01-10 01:48 | NUR ---
RN NOTE PT VERBALIZED 8/10 PAIN ON LOWER BACK, PRN MEDICATION GIVEN ORDERED PER PT'S REQUEST. VSS. WILL REASSESS.
[2023-01-10] MEDS: hydrALAZINE HCL 25 MG TABLET PO SCH ×2 (05:11→13:00)
[2023-01-10 05:46] LABS: WHITE BLOOD COUNT (AUTO) 6.7 K/uL (4.3-11.0)
[2023-01-10 05:47] LABS: BASOPHILS % (AUTO) 0.5 % (0.0-2.0); EOSINOPHILS % (AUTO) 9.8 % (0.0-6.0); HEMATOCRIT 27 % (39-51); HEMOGLOBIN 8.6 g/dL (13.5-17.5); LYMPHOCYTES # (AUTO) 1.2 K/uL (0.8-4.8); LYMPHOCYTES % (AUTO) 17.7 % (20.0-44.0); MEAN CORPUSCULAR HGB CONC 32 g/dl (31.0-36.0); MEAN CORPUSCULAR VOLUME 82 fL (80-96); MONOCYTES # (AUTO) 0.7 K/uL (0.1-1.30); MONOCYTES % (AUTO) 10.2 % (2.0-12.0); NEUTROPHILS # (AUTO) 4.1 K/uL (1.8-8.9); NEUTROPHILS % (AUTO) 61.8 % (43.0-81.0); PLATELET COUNT (AUTO) 353 K/uL (150-450); RED BLOOD CELL COUNT(AUTO) 3.31 MIL/uL (4.5-6.0)
[2023-01-10 06:04] LABS: POTASSIUM 3.7 mmol/L (3.5-5.1)
[2023-01-10 06:05] LABS: CALCIUM, SERUM 8.3 mg/dL (8.5-10.1); CREATININE 4.3 mg/dL (0.6-1.3); MAGNESIUM 1.9 mg/dL (1.8-2.4); PHOSPHORUS 4.7 mg/dL (2.5-4.9)
--- NOTE | 2023-01-10 06:56 | NUR ---
RN NOTE PT REMAINS IN STABLE CONDITION. VSS. BS WNL, NO S/SX OFHYPO/HYPERGLYCEMIA NOTED. ALL DUE MEDICATIONS GIVEN ORDERED. ANEEDS NEEDS ATTENDED. KEPT CLEAN, DRY AND COMFORTABLE AT ALL TIMES. WILL ENDORSE TO AM SHIFT
[2023-01-10 08:00] VITALS: BP 130/87
[2023-01-10] MEDS: CYCLOBENZAPRINE 10 MG TABLET PO SCH ×2 (09:23→13:48)
[2023-01-10] MEDS: METOPROLOL SUCCINATE 50 MG TAB.SR.24H PO SCH (09:24)
[2023-01-10] MEDS: ASPIRIN 81 MG TAB.CHEW PO SCH (09:24)
[2023-01-10] MEDS: oxyCODONE/APAP (5/325 MG) 1 UDTAB TABLET PO PRN (09:24)
[2023-01-10] MEDS: PREGABALIN 100 MG CAPSULE PO SCH ×2 (09:29→13:48)
[2023-01-10] MEDS: GLUCERNA SHAKE 237 ML CAN PO SCH (09:29)
[2023-01-10] MEDS: FUROSEMIDE 40 MG/4 ML VIAL IV SCH (09:29)
--- NOTE | 2023-01-10 12:19 | NUR ---
RN NOTE THORACENTESIS COMPLETED, 1500ML REMOVED, SENT TO LAB. WILL CONTINUE TO MONITOR
[2023-01-10 13:00] VITALS: BP 108/58
[2023-01-10] MEDS: EPOETIN ALFA (4000 UNIT) 4,000 UNIT/ML VIAL IV SCH (15:45)
--- NOTE | 2023-01-10 17:18 | NUR ---
RN NOTE PATIENT DISCHARGED HOME, VIA CAB. PATIENT IN STABLE CONDITION. REMOVED MIDLINE IV, AND ID BAND. PATIENT SIGNED DISCHARGED PACKET AND BELONGINGS LIST. PATIENT VERBALIZED UNDERSTANDING OF DISCHARGE INSTRUCTIONS. CHARGE NURSE AWARE.
== END 2023-01-10 16:35 | disposition home or self-care (01) | DRG 177 ==
LOC: ER 21:26 → TELE1 01-02 02:56 → TELE-TD 01-02 15:49 → TELE1 01-02 16:08 → MEDSG1 01-09 08:55
PROVIDERS: ADMIT Internal Medicine; ATTEND Nurse Practitioner Acute Care
PROC: 05HB33Z Insertion of Infusion Device into Right Basilic Vein, Percutaneous Approach (ICD-10-PCS; 2023-01-03)
PROC: 30233N1 Transfusion of Nonautologous Red Blood Cells into Peripheral Vein, Percutaneous Approach (ICD-10-PCS; principal; 2023-01-04)
PROC: 0JH63XZ Insertion of Tunneled Vascular Access Device into Chest Subcutaneous Tissue and Fascia, Percutaneous Approach (ICD-10-PCS; 2023-01-04)
PROC: 5A1D70Z Performance of Urinary Filtration, Intermittent, Less than 6 Hours Per Day (ICD-10-PCS; 2023-01-04)
PROC: 05HM33Z Insertion of Infusion Device into Right Internal Jugular Vein, Percutaneous Approach (ICD-10-PCS; 2023-01-04)
PROC: B513YZA Fluoroscopy of Right Jugular Veins using Other Contrast, Guidance (ICD-10-PCS; 2023-01-04)
PROC: 0W9B3ZX Drainage of Left Pleural Cavity, Percutaneous Approach, Diagnostic (ICD-10-PCS; 2023-01-10)
DX: J69.0 Pneumonitis due to inhalation of food and vomit (principal); G93.41 Metabolic encephalopathy; I50.23 Acute on chronic systolic (congestive) heart failure; N17.0 Acute kidney failure with tubular necrosis; J90 Pleural effusion, not elsewhere classified; J98.11 Atelectasis; I12.9 Hypertensive chronic kidney disease with stage 1 through stage 4 chronic kidney disease, or unspecified chronic kidney disease; J15.9 Unspecified bacterial pneumonia; E11.649 Type 2 diabetes mellitus with hypoglycemia without coma; E87.5 Hyperkalemia; Z20.822 Contact with and (suspected) exposure to COVID-19; J44.9 Chronic obstructive pulmonary disease, unspecified; G89.29 Other chronic pain; Z98.1 Arthrodesis status; Z98.890 Other specified postprocedural states; Z79.84 Long term (current) use of oral hypoglycemic drugs; Z79.4 Long term (current) use of insulin; Z79.82 Long term (current) use of aspirin; Z79.899 Other long term (current) drug therapy; Z83.3 Family history of diabetes mellitus; Z86.16 Personal history of COVID-19; E78.5 Hyperlipidemia, unspecified; E86.1 Hypovolemia; E11.42 Type 2 diabetes mellitus with diabetic polyneuropathy; N18.9 Chronic kidney disease, unspecified; D63.8 Anemia in other chronic diseases classified elsewhere; E66.01 Morbid (severe) obesity due to excess calories; E11.22 Type 2 diabetes mellitus with diabetic chronic kidney disease; G47.33 Obstructive sleep apnea (adult) (pediatric); Z68.39 Body mass index [BMI] 39.0-39.9, adult; N28.1 Cyst of kidney, acquired; D50.9 Iron deficiency anemia, unspecified
CPT/HCPCS: 36410; 36415; 71045-TC; 76770-TC; 80048-TC; 80053-TC; 82550-TC; 82553; 82962-TC; 83540-TC; 83735-TC; 83880; 84100-TC; 84484-TC; 85025-TC; 85610-TC; 85730-TC; 86704; 86705; 86706; 86803; 86850-TC; 87081-TC; 87102-TC; 87340; 88108-TC; 88305-TC; 88312-TC; 89051-TC; 90935-TC; 97110-TC; 97112-TC; 97116-TC; 97530-TC; C1750; C1894; G0378; J0456; J0690; J0696; J0885; J1644; J1815; J1940; J2405; J2704; J2765; J2916; J3010; J3490; J7030; J7060; P9016; Q9967